=== PATIENT | female | born 1945 | race Caucasian/White ===

== ENCOUNTER 2017-07-28 16:35 | Inpatient (IN) ==
[2017-07-28] MEDS ORDERED: *HR* FentaNYL (PF) 100 MCG/2 ML VIAL IVP ONE (16:51)
[2017-07-28] MEDS ORDERED: 0.9 % Sodium Chloride 1,000 ML IVC ONE (16:51)
[2017-07-28] MEDS ORDERED: Ondansetron 4 MG/2 ML VIAL IVP PRN ×2 (16:51→20:21)
--- NOTE | 2017-07-28 17:18 | Emergency Department Note ---
Disposition Clinical Impression: Bowel obstruction Disposition: Admitted As Inpatient Condition: Serious Referrals: Max Lopez DO [Primary Care Provider] - Time of Disposition: 17:18 Abdominal Pain HPI - General Chief Complaint: ED Abdominal Pain Stated Complaint: Abdominal Pain Source: patient, EMS - History of Present Illness Pain Scale: 9 - Related Data Home Medications Medication Instructions Recorded Confirmed Budesonide/Formoterol 80/4.5 2 puff IH BID 10/18/16 06/20/17 [Symbicort 80/4.5] Ipratropium/Albuterol Neb [Duoneb] 3 ml IH Q6HR PRN 10/18/16 06/20/17 Potassium Chloride [K-Tab ER] 20 meq PO TID 10/18/16 06/20/17 Previous Rx's Medication Instructions Recorded Lidocaine/Prilocaine [Emla] 1 appl TP AD #30 gm 10/19/16 Albuterol Sulfate [Ventolin Hfa] 2 puff IH Q6H PRN #1 01/06/17 Syringe-Needle,Insulin,0.5 ml 1 each MC DAILY #100 disp.syrin 02/17/17 [Insulin Syringe] Handicap Placard 1 each .ROUTE AD #1 each 03/17/17 LORazepam [Ativan] 1 mg PO Q4HR PRN #30 tablet 04/14/17 Omeprazole 20 mg PO DAILY #30 tablet. 06/02/17 Ondansetron [Zofran] 8 mg PO Q8HR PRN #30 tablet 06/02/17 HYDROcodone/Acet 5/325 mg [[place] 1 - 2 tab PO Q6H PRN 30 Days #90 06/20/17 5-325 mg] tab Mirtazapine [Remeron] 15 mg PO HS #30 tablet 07/20/17 Metoclopramide [Reglan] 5 mg PO QIDAC #600 mls 07/25/17 Allergies Allergy/AdvReac Type Severity Reaction Status Date / Time No Known Allergies Allergy Verified 06/20/17 11:43 Abdominal Pain PMH - Past Medical History Medical history: Reports: cancer, COPD, diabetes, hypertension, kidney stones Female Surgical History: Reports: cholecystectomy, Tonsillectomy Psychiatric history: Reports: no psych history - Social History Smoking status: Former smoker Alcohol use: Reports: none Drug use: Reports: none Physical Exam - General Limitations: no limitations General appearance: alert, in no apparent distress Course - Reevaluation(s) Reevaluation #1: Attestation note I did independently examine and verified the physical examination findings evaluation workup and disposition of this patient. We had independent face-to- face examination and discussion. The patient was seen with the emergency medicine resident Dr. Jose Alberto Sanabria I examined this patient and my medical decision-making was reviewed with the Resident Physician/YOU[employer] MINISTER/PA. I agree with the documented findings, disposition and treatment plan as described except to the extent set forth below. Briefly: 72-year-old female history of intra-abdominal tumor with Pelling new metastasis to the long last chemotherapy was in June. Patient's Oncologist Is [facility]. Patient Comes with a Greatly Distended Abdomen Diffuse Tenderness Guarding but No Rebound. Abdominal Pelvic CT Review Prior to Radiologic Interpretation Shows What Appears to Be Markedly Distended stomach with what appears to be food of fecal material in it. We will been overweight for the official radiological reading and then consult surgery and likely admit to the hospitalist service. Providing 30 minutes critical care service for this patient, patient is full code. Disposition pending Time: 17:16 Vital Signs Temperature 97.1 F L 07/28/17 16:38 Pulse Rate 122 07/28/17 16:38 Respiratory Rate 18 07/28/17 16:38 Blood Pressure 124/72 07/28/17 16:38 O2 Sat by Pulse Oximetry 90 07/28/17 16:38 Temperature 97.1 F L 07/28/17 16:38 Pulse Rate 122 07/28/17 16:38 Respiratory Rate 18 07/28/17 16:38 Blood Pressure 124/72 07/28/17 16:38 O2 Sat by Pulse Oximetry 90 07/28/17 16:38 Oxygen Delivery Oxygen Delivery Room Air
--- NOTE | 2017-07-28 17:27 | Emergency Department Note ---
Disposition Clinical Impression: Hx of malignant neoplasm of pancreas, History of malignant neoplasm metastatic to lung Bowel obstruction Qualifiers: Intestinal obstruction type: other intestinal obstruction Intestinal obstruction extent: unspecified extent Qualified Code(s): K56.699 - Other intestinal obstruction unspecified as to partial versus complete obstruction Nausea & vomiting Qualifiers: Vomiting type: unspecified Vomiting Intractability: non-intractable Qualified Code(s): R11.2 - Nausea with vomiting, unspecified Sepsis Qualifiers: Sepsis type: sepsis due to unspecified organism Qualified Code(s): A41.9 - Sepsis, unspecified organism Disposition: Admitted As Inpatient Condition: Serious Time of Disposition: 19:50 Abdominal Pain HPI - General Chief Complaint: ED Abdominal Pain Stated Complaint: Abdominal Pain Source: patient, EMS Nursing Notes Reviewed: Yes Vital Signs Reviewed: Yes - History of Present Illness HPI Narrative: Patient is a 72-year-old female complains of abdominal pain 2 weeks that has gotten acutely worse over the past 3 days. Patient states her pain is currently approximately 10/10 in her left upper quadrant area with associated nausea, vomiting. Patient denies any fevers chills. Patient states there is no radiation to the pain. Patient states she had a bowel movement 1 day ago which was loose, and nonbloody. Patient states bowel movement did not decrease patient's pain symptoms or make it worse. Patient states she is unable to eat without nausea and vomiting. She is unable to take her medications as well. Patient has a history of pancreatic cancer with metastasis to both lungs. Patient follows with Dr. Hook of oncology. Last administration of chemotherapy was the end of June. Pain Scale: 9 - Related Data Home Medications Medication Instructions Recorded Confirmed Budesonide/Formoterol 80/4.5 2 puff IH BID 10/18/16 07/28/17 [Symbicort 80/4.5] Ipratropium/Albuterol Neb [Duoneb] 3 ml IH Q6HR PRN 10/18/16 07/28/17 Potassium Chloride [K-Tab ER] 20 meq PO DAILY 10/18/16 07/28/17 Insulin Glargine,Hum.rec.anlog 35 unit SQ QAM 07/28/17 07/28/17 [Basaglricardo Deepen U-100] Previous Rx's Medication Instructions Recorded Lidocaine/Prilocaine [Emla] 1 appl TP AD #30 gm 10/19/16 Albuterol Sulfate [Ventolin Hfa] 2 puff IH Q6H PRN #1 01/06/17 LORazepam [Ativan] 1 mg PO Q4HR PRN #30 tablet 04/14/17 Omeprazole 20 mg PO DAILY #30 tablet. 06/02/17 Ondansetron [Zofran] 8 mg PO Q8HR PRN #30 tablet 06/02/17 HYDROcodone/Acet 5/325 mg [[place] 1 - 2 tab PO Q6H PRN 30 Days #90 06/20/17 5-325 mg] tab Mirtazapine [Remeron] 15 mg PO HS #30 tablet 07/20/17 Metoclopramide [Reglan] 5 mg PO QIDAC #600 mls 07/25/17 Allergies Allergy/AdvReac Type Severity Reaction Status Date / Time No Known Allergies Allergy Verified 06/20/17 11:43 All systems ED: reviewed and negative except as stated. Review of Systems: As Per HPI Constitutional: Denies: fever, chills ENT ED: Denies: congestion Cardiovascular: Denies: chest pain Respiratory: Reports: dyspnea Abdominal Pain PMH - Past Medical History Medical history: Reports: cancer, COPD, diabetes, hypertension, kidney stones Female Surgical History: Reports: cholecystectomy, Tonsillectomy Psychiatric history: Reports: no psych history - Social History Smoking status: Former smoker Alcohol use: Reports: none Drug use: Reports: none Physical Exam Vital Signs Temperature 97.1 F L 07/28/17 16:38 Pulse Rate 122 07/28/17 16:38 Respiratory Rate 18 07/28/17 16:38 Blood Pressure 124/72 07/28/17 16:38 O2 Sat by Pulse Oximetry 90 07/28/17 16:38 Temperature 97.1 F L 07/28/17 16:38 Pulse Rate 119 07/28/17 19:19 Respiratory Rate 20 07/28/17 19:19 Blood Pressure 96/54 07/28/17 19:19 O2 Sat by Pulse Oximetry 94 07/28/17 19:19 Oxygen Delivery Oxygen Delivery Nasal Cannula CONSTITUTIONAL: Alert and oriented X3, patient is cachectic appearing. Patient is afebrile. Vital signs abnormal for tachycardia at 122. O2 sat 90% and placed on O2 2 L via nasal cannula. Recheck of patient's vitals show no change to pulse rate, blood pressure 96/54. O2 sat 94% on 2 L nasal cannula. HEAD: Normocephalic; atraumatic. EYES: PERRL, no scleral icterus. NOSE: The nose is normal in appearance without rhinorrhea RESP: Normal chest excursion with respiration; breath sounds clear and equal bilaterally; no wheezes, rhonchi, or rales CARD: Regular rhythm, without murmurs, rub or gallop ABD: Abdomen distended with rigidity. Bowel sounds normoactive. Tenderness to palpation left upper quadrant and epigastric. No discoloration, no ecchymosis and flank or periumbilical. SKIN: Normal for age and race; warm and dry; no apparent lesions - General Limitations: no limitations General appearance: alert, in no apparent distress Course - Reevaluation(s) Reevaluation #1: Patient's CT shows small bowel obstruction. NG tube ordered after discussion with patient. Patient understands and agrees to treatment plan for NG tube for bowel decompression. Patient lactic acid is elevated at 2.7. Given patient's elevated white blood cell count, tachycardia, patient is also concerning for sepsis. Cultures have been ordered, Zosyn 3.375 IV ordered. Patient will continue to receive IV fluid. Currently has 1 L running. She will receive a second liter at the completion of the first liter to make 30 mL/ kilogram Time: 18:18 Reevaluation #2: Patient has improvement of symptoms after NG tube placement. Time: 19:40 - Consultations Consultation #1: Dr. Coffey of Gen. surgery was consulted. She recommends NG tube for bowel decompression which is already ordered. She recommends admission to medicine. She states she will see the patient in the morning Time: 18:24 Vital Signs Temperature 97.1 F L 07/28/17 16:38 Pulse Rate 122 07/28/17 16:38 Respiratory Rate 18 07/28/17 16:38 Blood Pressure 124/72 07/28/17 16:38 O2 Sat by Pulse Oximetry 90 07/28/17 16:38 Temperature 97.8 F 07/29/17 04:15 Pulse Rate 88 07/29/17 04:15 Respiratory Rate 16 07/29/17 04:15 Blood Pressure 96/58 07/29/17 04:15 O2 Sat by Pulse Oximetry 94 07/29/17 04:15 Oxygen Delivery Oxygen Delivery Nasal Cannula Abdominal Pain - MDM Narrative Medical decision making narrative: Patient has a distended abdomen with complaints of nausea and vomiting and a history of pancreatic cancer with metastasis to lungs. Patient concern for possible bowel obstruction secondary to metastatic cancer to intestines. Patient had bowel movement times one day ago which was watery and nonbloody. Patient is unable to eat secondary to nausea and vomiting. She is also unable to take her medications. CT abdomen without contrast confirms bowel obstruction of the duodenum. General surgery was consult. Dr. Coffey of Gen. surgery agrees to treatment and plan for bowel decompression with NG tube and admission to medicine. She plans to follow-up with the patient in the morning. Patient started on IV normal saline hydration for elevation of lactic acid which is 2.7 patient has a WBC 17.9 with left shift. Cultures and antibiotics were initiated to cover for intra-abdominal infection in the setting of sepsis. Patient started on Zosyn 3.375 IV. Patient understands and agrees to treatment and plan for admission. Patient was accepted for admission by Dr. Peters the hospitalist. Patient is currently full code. Patient has no standing advanced directives. - Lab Data Lab results reviewed: Yes I reviewed the patient's lab results. Lab results narrative: Short CBC 07/28/17 Range/Units 17:02 WBC 17.9 H (4.3-11.1) K/mcL Hgb 14.6 (11.5-15.4) g/dL Hct 44.5 (35.3-44.9) % Plt Count 254 (140-400) K/mcL Neutrophils # 14.9 H (1.6-8.9) K/mcL BMP 07/28/17 Range/Units 17:12 Sodium 132 L (136-145) mEq/L Potassium 4.0 (3.5-5.1) mEq/L Chloride 89 L (98-107) mEq/L Carbon Dioxide 26 (23-29) mEq/L BUN 37 H (8-23) mg/dL Creatinine 0.78 (0.60-1.20) mg/dL Glucose 155 H (70-105) mg/dL Calcium 10.2 (8.6-10.3) mg/dL Liver Function 07/28/17 Range/Units 17:12 Total Bilirubin 1.0 (0.3-1.0) mg/dL AST 42 H (13-39) Units/L ALT 19 (7-52) Units/L Alkaline Phosphatase 175 H (34-104) Units/L Albumin 3.2 L (3.5-5.7) g/dL Urine 07/28/17 Range/Units 18:01 Urine Color Dark Yellow (Yellow) Urine Clarity Cloudy A (Clear) Urine pH 5.5 (5.0-8.0) pH Units Ur Specific [place] > 1.030 H (1.010-1.025) Urine Protein Trace (Neg-Trace) mg/dL Urine Glucose (UA) Normal (Normal) mg/dL Result diagrams: 07/29/17 05:27 07/29/17 05:27 Lab Results 07/28/17 07/28/17 07/28/17 Range/Units 17:02 17:02 17:12 WBC 17.9 H (4.3-11.1) K/mcL RBC 5.09 H (3.82-4.97) M/mcL Hgb 14.6 (11.5-15.4) g/dL Hct 44.5 (35.3-44.9) % MCV 87.4 (83.0-100.0) fL MCH 28.7 (28.0-33.3) pg MCHC 32.8 (31.6-35.5) g/dL RDW 15.9 H (11.5-14.5) % Plt Count 254 (140-400) K/mcL MPV 11.6 (9.4-12.4) fL Immature Gran % 0.7 (0-4) % Seg Neutrophils % 83.4 % Lymphocytes % 6.0 % Monocytes % 9.6 % Eosinophils % 0.1 % Basophils % 0.2 % Neutrophils # 14.9 H (1.6-8.9) K/mcL Lymphocytes # 1.1 (0.6-4.6) K/mcL Monocytes # 1.7 H (0.0-1.3) K/mcL Eosinophils # 0.0 (0.0-0.6) K/mcL Basophils # 0.0 (0.0-0.2) K/mcL PT (9.4-12.1) Seconds INR APTT (26.0-36.0) Seconds Sodium 132 L (136-145) mEq/L Potassium 4.0 (3.5-5.1) mEq/L Chloride 89 L (98-107) mEq/L Carbon Dioxide 26 (23-29) mEq/L BUN 37 H (8-23) mg/dL Creatinine 0.78 (0.60-1.20) mg/dL Est GFR ( Amer) > 60 (> 60) Est GFR (Non-Af Amer) > 60 (> 60) BUN/Creatinine Ratio 47 H (6-26) Glucose 155 H (70-105) mg/dL Calculated Osmolality 286 (280-300) Lactic Acid 2.7 H (0.5-2.2) mmol/L Calcium 10.2 (8.6-10.3) mg/dL Total Bilirubin 1.0 (0.3-1.0) mg/dL AST 42 H (13-39) Units/L ALT 19 (7-52) Units/L Alkaline Phosphatase 175 H (34-104) Units/L Serum Total Protein 6.9 (6.4-8.9) g/dL Albumin 3.2 L (3.5-5.7) g/dL Globulin 3.7 H (2.4-3.5) g/dL Albumin/Globulin Ratio 0.9 L (1.1-2.2) Lipase 3 L (11-82) Units/L Urine Color (Yellow) Urine Clarity (Clear) Urine pH (5.0-8.0) pH Units Ur Specific [place] (1.010-1.025) Urine Protein (Neg-Trace) mg/dL Urine Glucose (UA) (Normal) mg/dL Urine Ketones (Negative) mg/dL Urine Blood (Negative) Urine Nitrite (Negative) Urine Bilirubin (Negative) Urine Urobilinogen (Normal) mg/dL Ur Leukocyte Esterase (Negative) Urine Microscopic RBC (0-3) per hpf Urine Microscopic WBC (0-3) per hpf Ur Squamous Epith Cells (None-Few) per lpf Urine Bacteria (None-Few) per hpf 07/28/17 07/28/17 Range/Units 17:12 18:01 WBC (4.3-11.1) K/mcL RBC (3.82-4.97) M/mcL Hgb (11.5-15.4) g/dL Hct (35.3-44.9) % MCV (83.0-100.0) fL MCH (28.0-33.3) pg MCHC (31.6-35.5) g/dL RDW (11.5-14.5) % Plt Count (140-400) K/mcL MPV (9.4-12.4) fL Immature Gran % (0-4) % Seg Neutrophils % % Lymphocytes % % Monocytes % % Eosinophils % % Basophils % % Neutrophils # (1.6-8.9) K/mcL Lymphocytes # (0.6-4.6) K/mcL Monocytes # (0.0-1.3) K/mcL Eosinophils # (0.0-0.6) K/mcL Basophils # (0.0-0.2) K/mcL PT 13.5 H (9.4-12.1) Seconds INR 1.2 APTT 29.9 (26.0-36.0) Seconds Sodium (136-145) mEq/L Potassium (3.5-5.1) mEq/L Chloride (98-107) mEq/L Carbon Dioxide (23-29) mEq/L BUN (8-23) mg/dL Creatinine (0.60-1.20) mg/dL Est GFR ( Amer) (> 60) Est GFR (Non-Af Amer) (> 60) BUN/Creatinine Ratio (6-26) Glucose (70-105) mg/dL Calculated Osmolality (280-300) Lactic Acid (0.5-2.2) mmol/L Calcium (8.6-10.3) mg/dL Total Bilirubin (0.3-1.0) mg/dL AST (13-39) Units/L ALT (7-52) Units/L Alkaline Phosphatase (34-104) Units/L Serum Total Protein (6.4-8.9) g/dL Albumin (3.5-5.7) g/dL Globulin (2.4-3.5) g/dL Albumin/Globulin Ratio (1.1-2.2) Lipase (11-82) Units/L Urine Color Dark Yellow (Yellow) Urine Clarity Cloudy A (Clear) Urine pH 5.5 (5.0-8.0) pH Units Ur Specific [place] > 1.030 H (1.010-1.025) Urine Protein Trace (Neg-Trace) mg/dL Urine Glucose (UA) Normal (Normal) mg/dL Urine Ketones Trace H (Negative) mg/dL Urine Blood Negative (Negative) Urine Nitrite Negative (Negative) Urine Bilirubin Large H (Negative) Urine Urobilinogen Normal (Normal) mg/dL Ur Leukocyte Esterase Negative (Negative) Urine Microscopic RBC 5-15 H (0-3) per hpf Urine Microscopic WBC 0-3 (0-3) per hpf Ur Squamous Epith Cells Many H (None-Few) per lpf Urine Bacteria None Seen (None-Few) per hpf - Radiology Data Radiology results reviewed: Yes I reviewed the patient's radiology results. Abdomen/Pelvis CT 07/28/17 16:50 IMPRESSION: 1. Massive distention of the stomach due to gastric obstruction likely at the level of the 2nd segment of the duodenum 2. Cystic lesion adjacent to the gastric antrum appears to communicate with the neck of the gallbladder in may represent tumor or pseudocyst 3. Hepatic metastatic disease 4. Interval enlargement of right lower lobe nodule and juxta cardiac lymph node, compatible with metastases 5. Small left pleural effusion D/ / Nirmal Hughes MD / Nirmal Hughes MD Interpreting Provider: Nirmal Hughes MD Chest X-Ray 07/28/17 16:54 IMPRESSION: No acute cardiopulmonary process. D/ / Shawn Berman MD / Shawn Berman MD Interpreting Provider: Shawn Berman MD
[2017-07-28 17:32] LABS: Basophils % 0.2 %; Eosinophils % 0.1 %; Hematocrit 44.5 % (35.3-44.9); Hemoglobin 14.6 g/dL (11.5-15.4); Immature Granulocytes % 0.7 % (0-4); Lymphocytes # 1.1 K/mcL (0.6-4.6); Mean Corpuscular HGB Conc 32.8 g/dL (31.6-35.5); Mean Corpuscular Hemoglobin 28.7 pg (28.0-33.3); Mean Corpuscular Volume 87.4 fL (83.0-100.0); Mean Platelet Volume 11.6 fL (9.4-12.4); Monocytes # 1.7 K/mcL (0.0-1.3); Monocytes % 9.6 %; Neutrophils # 14.9 K/mcL (1.6-8.9); Platelet Count 254 K/mcL (140-400); Red Blood Count 5.09 M/mcL (3.82-4.97); Red Cell Distribution Width 15.9 % (11.5-14.5); Segmented Neutrophils % 83.4 %
[2017-07-28] MEDS ORDERED: Piperacillin/Tazobactam 3.375 GM in 0.9 % Sodium Chloride Mini Bag 100 ML IVPB ONE (17:50)
[2017-07-28 18:00] LABS: Alanine Aminotransferase 19 Units/L (7-52); Albumin 3.2 g/dL (3.5-5.7); Albumin/Globulin Ratio 0.9 (1.1-2.2); Alkaline Phosphatase 175 Units/L (34-104); Aspartate Amino Transferase 42 Units/L (13-39); BUN/Creatinine Ratio 47 (6-26); Blood Urea Nitrogen 37 mg/dL (8-23); Calcium 10.2 mg/dL (8.6-10.3); Carbon Dioxide 26 mEq/L (23-29); Chloride 89 mEq/L (98-107); Globulin 3.7 g/dL (2.4-3.5); Glucose 155 mg/dL (70-105); Lipase 3 Units/L (11-82); Osmolality,Calculated 286 (280-300); Sodium 132 mEq/L (136-145); Total Protein 6.9 g/dL (6.4-8.9); eGFR For African Americans > 60 (> 60); eGFR For Non-African Americans > 60 (> 60)
[2017-07-28 18:11] LABS: Bilirubin,Urine Large (Negative); Blood,Urine Negative (Negative); Clarity,Urine Cloudy (Clear); Color,Urine Dark Yellow (Yellow); Glucose,Urine (UA) Normal (Normal); Ketones,Urine Trace mg/dL (Negative); Leukocyte Esterase,Urine Negative (Negative); Nitrite,Urine Negative (Negative); PH,Urine 5.5 pH Units (5.0-8.0); Protein,Urine Trace mg/dL (Neg-Trace); Specific Gravity,Urine > 1.030 (1.010-1.025); Urobilinogen,Urine Normal (Normal)
[2017-07-28 18:12] LABS: Bacteria,Urine None Seen per hpf (None-Few); Squamous Epithelial Cell,Urine Many per lpf (None-Few); WBC,Urine 0-3 per hpf (0-3)
[2017-07-28 18:24] LABS: INR 1.2; Prothrombin Time 13.5 Seconds (9.4-12.1)
[2017-07-28 18:26] LABS: Activated Partial Thrombo Time 29.9 Seconds (26.0-36.0)
[2017-07-28] MEDS ORDERED: *HR* Metoprolol 5 MG/5 ML VIAL IVP PRN (20:21)
[2017-07-28] MEDS ORDERED: OXYCODONE Oral CONC 10 MG/0.5 ML ORAL.SYG SL PRN ×2 (20:21)
[2017-07-28] MEDS ORDERED: Naloxone 0.4 MG/ML INJ IVP PRN (20:21)
[2017-07-28] MEDS ORDERED: 0.9 % Sodium Chloride 1,000 ML IVC SCH ×3 (20:30→23:00)
[2017-07-28] MEDS ORDERED: Metoclopramide 10 MG/2 ML VIAL IVP PRN (20:31)
--- NOTE | 2017-07-28 20:40 | Internal Med History&Physical ---
<Wilner Li - Last Filed: 07/29/17 03:58> Date of Encounter: 07/29/17 Time of Encounter: 19:30 Assessment and Plan (1) Bowel obstruction Status: Acute CT shows: Massive distention of the stomach due to gastric obstruction likely at the level of the 2nd segment of the duodenum. Cystic lesion adjacent to the gastric antrum appears to communicate with the neck of the gallbladder in may represent tumor or pseudocyst. Hepatic metastatic disease. Interval enlargement of right lower lobe nodule and juxta cardiac lymph node, compatible with metastases. Patient is tachycardic. Afebrile. Leukocytosis of 17.9. Lactic acid 2.7. No anemia. BMP is consistent with dehydration. Mild elevation in AST and alkaline phosphatase. Lipase is normal. The ED physician did call and discuss the patient with the surgical team, who will evaluate the patient in the morning. However, due to the patient's history and poor health status I expect she will be treated symptomatically and medically, as she would be a poor surgical candidate. Continue NG tube suction, NPO, PRN nausea control, pain control, IV fluids (LR as she is currently NPO) and antibiotics Qualifiers: Intestinal obstruction type: other intestinal obstruction Intestinal obstruction extent: unspecified extent Qualified Code(s): K56.699 - Other intestinal obstruction unspecified as to partial versus complete obstruction (2) Stage IV adenocarcinoma of pancreas Status: Acute There is confirmed metastasis by biopsy to the lungs. Last oncology note on mentions that chemotherapy has been stopped secondary to disease stability and toxicity. She reports that they were going to take a couple months off and then reevaluate. I did have a lengthy discussion with both the patient and her about the extent of her cancer. We discussed the difference in quality versus quantity of life. Both patient and her are aware of how severe her disease is. The patient did express that she would prefer quality of life over prolongation of life. They are willing to have a discussion with oncology and palliative care, about their options going forward and what services would be available to them. I also had a lengthy conversation with them about CODE STATUS, and the patient reports that she would prefer to be DNR CCA DNI. (3) Altered nutrition in oncology patient Status: Acute Patient has not been eating or drinking well over the past 2 weeks due to bowel obstruction. She appears very cachectic. She will need planning for nutritional needs going forward, whether that be a feeding tube or some sort of nutritional supplementation. We will consult dietary to assist in this planning process. (4) Diabetes mellitus Status: Acute Patient is on U-100 insulin, dosed in the morning. With patient currently being NPO, we will hold her home insulin dose and place her on a sliding scale insulin. Qualifiers: Diabetes mellitus type: type 2 Diabetes mellitus alf insulin use: with alf use Diabetes mellitus complication status: with unspecified complications Qualified Code(s): E11.8 - Type 2 diabetes mellitus with unspecified complications; Z79.4 - nursing home (current) use of insulin; Z79.4 - nursing home (current) use of insulin; Z79.4 - termite control service representative (current) use of insulin; Z79.4 - termite control service representative (current) use of insulin (5) Hypertension Status: Acute Normotensive. Patient is tachycardic. Patient is currently nothing by mouth, so we will place her on Lopressor PRN. Qualifiers: Hypertension type: essential hypertension Qualified Code(s): I10 - Essential (primary) hypertension (6) COPD (chronic obstructive pulmonary disease) Status: Acute Hx of COPD, not in acute exacerbation. Patient reports that her breathing is about at baseline. We will continue home inhalers and respiratory support. Qualifiers: COPD type: unspecified COPD Qualified Code(s): J44.9 - Chronic obstructive pulmonary disease, unspecified (7) DVT prophylaxis Status: Acute SCDs for now Internal Medicine - H&P: HPI Chief complaint: Abdominal Pain Admitted From: Emergency Dept History of present illness: Ms. Rogers is a 72 year old female with PMH of pancreatic cancer with metastasis to lungs, COPD, diabetes, hypertension, presents to emergency department with a two-week history of severe non-radiating left upper quadrant abdominal pain. She reports that over the past 3 days her pain has worsened. Associated symptoms include nausea, vomiting, poor appetite/intake, and distention of her abdomen. However, she reports now her abdomen is much less distended after NG tube placement. She does report that she has been more constipated during this time period, but has had a few bowel movements, with the most recent being yesterday that was loose. Her pain is not relieved after a bowel movement. Nothing seems to aggravate or alleviate the pain. She denies fevers, chills, syncope, lightheadedness, hematemesis, hematochezia, melena, dysuria or hematuria. She states this has never happened to her past. She denies chest pain, dyspnea, back pain, or leg pain/swelling. She reports she follows with oncology, Dr. Hook, and her last chemotherapy treatment was in June. At that time it was discussed to give her a few months off of treatment, and then reevaluate. Discussed CODE STATUS with the patient and she is a DNR CCA DNI. Past Med Surg Social Fam HX - Past Medical History Medical history: cancer, COPD, diabetes, hypertension, kidney stones Psychiatric history: no psych history - Past Surgical History Surgical History: cholecystectomy - Social History Smoking Status: Former smoker Smokeless Tobacco Status: No Alcohol use: none Drug use: none - Family History Mother Living Status: Hx Family Cardiac Disorders: Yes Internal Medicine - H&P: Meds Budesonide/Formoterol 80/4.5 [Symbicort 80/4.5] 2 puff IH BID 10/18/16 [History ] Ipratropium/Albuterol Neb [Duoneb] 3 ml IH Q6HR PRN 10/18/16 [History] Potassium Chloride [K-Tab ER] 20 meq PO DAILY 10/18/16 [History] Lidocaine/Prilocaine [Emla] 1 appl TP AD #30 gm 10/19/16 [Rx] Albuterol Sulfate [Ventolin Hfa] 2 puff IH Q6H PRN #1 01/06/17 [Rx] LORazepam [Ativan] 1 mg PO Q4HR PRN #30 tablet 04/14/17 [Rx] Omeprazole 20 mg PO DAILY #30 tablet. 06/02/17 [Rx] Ondansetron [Zofran] 8 mg PO Q8HR PRN #30 tablet 06/02/17 [Rx] HYDROcodone/Acet 5/325 mg [[place] 5-325 mg] 1 - 2 tab PO Q6H PRN 30 Days #90 tab 06/20/17 [Rx] Mirtazapine [Remeron] 15 mg PO HS #30 tablet 07/20/17 [Rx] Metoclopramide [Reglan] 5 mg PO QIDAC #600 mls 07/25/17 [Rx] Insulin Glargine,Hum.rec.anlog [Gabi Pena U-100] 35 unit SQ QAM 07/28/17 [History] 3 Allergy/AdvReac Type Severity Reaction Status Date / Time No Known Allergies Allergy Verified 06/20/17 11:43 All Systems PM: A 10-system review of systems was performed and is negative for pertinent findings except as documented above in the HPI. - Constitutional Vitals: Temp Pulse Resp BP Pulse Ox 97.1 F L 119 20 96/54 94 07/28/17 16:38 07/28/17 19:19 07/28/17 19:19 07/28/17 19:19 07/28/17 19:19 General appearance: Present: cachectic, A&O X 3, no acute distress, answers questions appropriately - Head Head exam: Present: atraumatic, normocephalic - Eye Eye exam: Present: EOMI, PERRL, conjuntiva pink, sclera anicteric - Neck Neck exam general surgery: Present: supple, trachea midline. Absent: lymphadenopathy - Respiratory Respiratory exam: Present: CTAB. Absent: accessory muscle use, rales, rhonchi, wheezes - Cardiovascular Cardiovascular exam: Present: +S1, +S2, tachycardia. Absent: diastolic murmur, systolic murmur - GI/Abdominal GI/Abdominal exam: Present: normal bowel sounds, soft, tenderness (upper abdominal tenderness), no peritoneal signs. Absent: distended, guarding, rebound, rigid Additional comments: Abdominal exam is completed after NG tube placement, and significant amount of fluid removal. ED physician reported a distended rigidity. - Extremities Exam Extremities exam: Present: warm, radial pulses palpable and symmetrical. Absent : calf tenderness, cyanotic, pedal edema - Neurological Exam Neurological exam: Present: CN II-XII intact, oriented X3, no focal deficits. Absent: facial droop, speech deficit - Skin Skin exam: Present: dry, intact Internal Med - H&P Results - Labs CBC & Chem 7: 07/28/17 17:02 07/28/17 17:12 <Halle Reynolds - Last Filed: 08/18/17 10:19> Date of Encounter: 08/18/17 Internal Medicine - H&P: HPI History of present illness: Ms. Rogers is a 72 year old female All Systems PM: A 10-system review of systems was performed and is negative for pertinent findings except as documented above in the HPI. - Constitutional Vitals: Temp Pulse Resp BP Pulse Ox 98.3 F 101 9 80/48 86 08/03/17 07:33 08/03/17 07:33 08/03/17 07:33 08/03/17 07:33 08/03/17 07:33 Internal Med - H&P Results - Labs CBC & Chem 7: 08/02/17 03:14 08/02/17 03:14 - Impressions ITS Impressions Abdomen/Pelvis CT 07/30/17 16:14 IMPRESSION: 1. Large amount of free intraperitoneal air which may be related to recent gastrostomy tube placement; however, this is more than is typically seen. Although there is no convincing source, there is a pocket of extraluminal gas in the abdominal right upper quadrant, near the colonic hepatic flexure. As such, this may represent source of the free intraperitoneal air. 2. Circumferential thickening of the colon suggestive of colitis. 3. Marked distention of the stomach with focal thickening of the posterior gastric wall at the level of the antrum of unclear etiology, possibly a hematoma. 4. Moderate amount of free fluid in the pelvis. 5. Sigmoid diverticulosis. No evidence of diverticulitis. 6. Left hepatic lobe pneumobilia with mild left intrahepatic ductal dilatation. Of note, the biliary stent has slightly migrated distally. 7. Persistent peripheral wall 2.3 cm nodule in the right lower lobe, previously biopsied. Please refer to pathology report. 8. Left lower lobe consolidation with small left pleural effusion. D/ / 07/30/2017 17:44:31 Collin Barcenas MD / vinod Interpreting Provider: Collin Barcenas MD Head CT 07/31/17 00:00 IMPRESSION: No acute intracranial abnormality. No acute cervical spine fracture No acute thoracic spine fracture Left greater than right pleural effusions and left greater than right basilar airspace disease. D/ / Alpesh Ariza / Alpesh Ariza Interpreting Provider: Alpesh Ariza Cervical Spine CT 07/31/17 00:30 IMPRESSION: No acute intracranial abnormality. No acute cervical spine fracture No acute thoracic spine fracture Left greater than right pleural effusions and left greater than right basilar airspace disease. D/ / Alpesh Ariza / Alpesh Ariza Interpreting Provider: Alpesh Ariza Thoracic Spine CT 07/31/17 00:31 IMPRESSION: No acute intracranial abnormality. No acute cervical spine fracture No acute thoracic spine fracture Left greater than right pleural effusions and left greater than right basilar airspace disease. D/ / Alpesh Ariza / Alpesh Ariza Interpreting Provider: Alpesh Ariza Knee X-Ray 07/31/17 00:35 IMPRESSION: No fracture or malalignment. D/ / Armando Wray MD / Armando Wray MD Interpreting Provider: Armando Wray MD Elbow X-Ray 07/31/17 00:37 IMPRESSION: No fracture or malalignment. D/ / Armando Wray MD / Armando Wray MD Interpreting Provider: Armando Wray MD X-Ray 07/31/17 01:00 IMPRESSION: Indeterminate bowel-gas pattern. D/ / Armando Wray MD / Armando Wray MD Interpreting Provider: Armando Wray MD - Attending Attestation I personally and independently interviewed and examined the patient, and I reviewed the patient's medical record. I am in agreement with the residents assessment and proposed treatment plan. I discussed my findings and recommendation with the patient and answer his questions. The patient's medical records were edited to accurately reflect this encounter.
[2017-07-28] MEDS ORDERED: Dextrose Gel 15 GM/37.5 ML TUBE PO PRN ×2 (21:02)
[2017-07-28] MEDS ORDERED: *HR* Dextrose 50 % in Water (Syg) 50 ML SYRINGE IVP PRN (21:02)
[2017-07-28] MEDS ORDERED: D5% in Water 1,000 ML IVC PRN (21:02)
[2017-07-28] MEDS: Budesonide/Formoterol 80/4.5 MDI IH SCH (22:53)
[2017-07-29] MEDS: *HR* LORazepam 2 MG/ML VIAL IVP SCH ×4 (00:01→12:32)
[2017-07-29 05:49] LABS: Basophils % 0.2 %; Eosinophils % 0.3 %; Hematocrit 36.3 % (35.3-44.9); Immature Granulocytes % 0.4 % (0-4); Lymphocytes # 1.2 K/mcL (0.6-4.6); Lymphocytes % 10.4 %; Mean Corpuscular HGB Conc 32.5 g/dL (31.6-35.5); Mean Corpuscular Hemoglobin 28.4 pg (28.0-33.3); Mean Corpuscular Volume 87.3 fL (83.0-100.0); Mean Platelet Volume 11.5 fL (9.4-12.4); Monocytes # 1.2 K/mcL (0.0-1.3); Monocytes % 10.6 %; Neutrophils # 8.9 K/mcL (1.6-8.9); Platelet Count 172 K/mcL (140-400); Red Blood Count 4.16 M/mcL (3.82-4.97); Red Cell Distribution Width 15.9 % (11.5-14.5); Segmented Neutrophils % 78.1 %
[2017-07-29 05:51] LABS: Hemoglobin 11.8 g/dL (11.5-15.4); INR 1.3; Prothrombin Time 13.6 Seconds (9.4-12.1)
[2017-07-29 07:01] LABS: BUN/Creatinine Ratio 43 (6-26); Blood Urea Nitrogen 31 mg/dL (8-23); Calcium 8.9 mg/dL (8.6-10.3); Carbon Dioxide 27 mEq/L (23-29); Chloride 99 mEq/L (98-107); Glucose 113 mg/dL (70-105); Osmolality,Calculated 295 (280-300); Potassium 3.7 mEq/L (3.5-5.1); Sodium 139 mEq/L (136-145); eGFR For African Americans > 60 (> 60); eGFR For Non-African Americans > 60 (> 60)
[2017-07-29] MEDS: Budesonide/Formoterol 80/4.5 MDI IH SCH ×2 (07:57→19:59)
[2017-07-29] MEDS: Ipratropium/Albuterol Neb 3 ML IH PRN (07:58)
[2017-07-29] MEDS: Insulin LISPRO 300 UNITS/3 ML VIAL SQ SCH ×4 (08:30→21:59)
[2017-07-29] MEDS: Pantoprazole 40 MG VIAL IVP SCH (08:36)
[2017-07-29] MEDS: Ringers Solution, Lactated 1,000 ML IVC SCH ×2 (08:39→22:16)
--- NOTE | 2017-07-29 09:47 | General Surgery Consult Note ---
<Chad Rodas - Last Filed: 07/29/17 09:36> Date of Encounter: 07/29/17 Time of Encounter: 08:00 Assessment and Plan (1) Gastric outlet obstruction Status: Acute CT of the abdomen on 07/28/2017 shows Massive distention of the stomach due to gastric obstruction likely at the level of the 2nd segment of the duodenum, Hepatic metastatic disease, amd Interval enlargement of right lower lobe nodule and juxta cardiac lymph node, compatible with metastases. Patient is a poor surgical candidate. Patient is afebrile and appears in no acute distress at this time. NG tube is in place. Plan: Continue the NG tube at this time Consider PEG tube placement for decompression No other surgical intervention at this time Keep NPO supportive care and pain control. Continue IV fluids continue to monitor the patient closely Recommends DVT prophylaxis per primary team (2) Stage IV adenocarcinoma of pancreas Status: Acute Dr. Hook is her oncologist. Oncology and palliative consulted per primary team. Plan per primary team (3) COPD (chronic obstructive pulmonary disease) Status: Acute History of COPD. Currently is not in acute exacerbation of COPD. Continue plan per primary team. 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 Rogers is a 72 year old female with PMH of pancreatic cancer with metastasis to lungs, COPD, diabetes, and hypertension who presented to emergency department yesterday with a two-week history of severe non-radiating left upper quadrant abdominal pain. She reports that over the past 3 days her pain has worsened. Associated symptoms include nausea, vomiting, poor appetite and intake, and distention of her abdomen. Evaluation in the ED included a CT of the abdomen that showed massive distention of the stomach due to gastric obstruction likely at the level of the 2nd segment of the duodenum, Hepatic metastatic disease, and interval enlargement of right lower lobe nodule and juxta cardiac lymph node, compatible with metastases. Chest x-ray showed no acute cardiopulmonary processes. Labs show leukocytosis and elevated lactic acid at 2.7. NG tube was placed for bowel decompression in the ED. Surgery was consulted for further recommendations. The patient was seen and evaluated at bedside this morning. The patient's is at bedside. The patient states that she feels better compared to yesterday. She is denying any abdominal pain at this time. She states that " if I don't need surgery, then I don't want it." The patient states that her last bowel movement was last night and described it as loose and non-bloody. She admits passing gas. Surgical history includes cholecystectomy approximately 50 years ago. She also had a right port placement in 2015. She denies fevers, chills, syncope, lightheadedness, hematemesis, hematochezia, melena, dysuria or hematuria. She states this has never happened to her past. She denies chest pain, dyspnea, back pain, or leg pain/swelling. She reports she follows with oncology, Dr. Hook, and her last chemotherapy treatment was in June. Past Med Surg Social Fam HX - Past Medical History Medical history: cancer, COPD, diabetes, hypertension, kidney stones Psychiatric history: no psych history - Past Surgical History Surgical History: cholecystectomy - Social History Smoking Status: Former smoker Smokeless Tobacco Status: No Alcohol use: none Drug use: none - Family History Mother Living Status: Hx Family Cardiac Disorders: Yes Medications and Allergies Budesonide/Formoterol 80/4.5 [Symbicort 80/4.5] 2 puff IH BID 10/18/16 [History ] Ipratropium/Albuterol Neb [Duoneb] 3 ml IH Q6HR PRN 10/18/16 [History] Potassium Chloride [K-Tab ER] 20 meq PO DAILY 10/18/16 [History] Lidocaine/Prilocaine [Emla] 1 appl TP AD #30 gm 10/19/16 [Rx] Albuterol Sulfate [Ventolin Hfa] 2 puff IH Q6H PRN #1 01/06/17 [Rx] LORazepam [Ativan] 1 mg PO Q4HR PRN #30 tablet 04/14/17 [Rx] Omeprazole 20 mg PO DAILY #30 tablet. 06/02/17 [Rx] Ondansetron [Zofran] 8 mg PO Q8HR PRN #30 tablet 06/02/17 [Rx] HYDROcodone/Acet 5/325 mg [[place] 5-325 mg] 1 - 2 tab PO Q6H PRN 30 Days #90 tab 06/20/17 [Rx] Mirtazapine [Remeron] 15 mg PO HS #30 tablet 07/20/17 [Rx] Metoclopramide [Reglan] 5 mg PO QIDAC #600 mls 07/25/17 [Rx] Insulin Glargine,Hum.rec.anlog [Basaglar Kwikpen U-100] 35 unit SQ QAM 07/28/17 [History] 3 Allergy/AdvReac Type Severity Reaction Status Date / Time No Known Allergies Allergy Verified 06/20/17 11:43 Review of Systems All systems PM: The remainder of the systems were reviewed and are negative - Constitutional as per HPI General Surgery Exam Initial Vital Signs Temp Pulse Resp BP Pulse Ox 97.1 F L 122 18 124/72 90 07/28/17 16:38 07/28/17 16:38 07/28/17 16:38 07/28/17 16:38 07/28/17 16:38 - General physical appearance no distress, chronically ill - Eyes PERRL, normal ocular movement - ENT dry mucosa, Other (NG tube in placed. 250 mL of drainage) - Neck trachea midline - Respiratory normal respiratory effort, other (Port on the right side of her chest is present and intact) wheezing: bilateral (Expiratory wheezes bilaterally), rales: bilateral - Cardiovascular Cardiovascular exam: Present: RRR, no murmurs/rubs/gallops - Abdomen Abdomen general surgery: Present: bowel sounds present, soft, non tender. Absent: distended, guarding, rebound, rigid - Integumentary Integumentary general surgery: Present: warm and dry, no abnormal pigmentation - Neurologic Present: CN 2-12 grossly intact - Psychiatric Psychiatric general surgery: Present: A&Ox3, appropriate Exam Initial Vital Signs Temp Pulse Resp BP Pulse Ox 97.1 F L 122 18 124/72 90 07/28/17 16:38 07/28/17 16:38 07/28/17 16:38 07/28/17 16:38 07/28/17 16:38 Results - Labs 07/29/17 05:27 07/29/17 05:27 Abnormal lab results WBC 11.4 K/mcL (4.3-11.1) H 07/29/17 05:27 RDW 15.9 % (11.5-14.5) H 07/29/17 05:27 PT 13.6 Seconds (9.4-12.1) H 07/29/17 05:27 BUN 31 mg/dL (8-23) H 07/29/17 05:27 BUN/Creatinine Ratio 43 (6-26) H 07/29/17 05:27 Glucose 113 mg/dL (70-105) H 07/29/17 05:27 POC Glucose 99 mg/dL (58-89) H 07/29/17 07:38 AST 42 Units/L (13-39) H 07/28/17 17:12 Alkaline Phosphatase 175 Units/L (34-104) H 07/28/17 17:12 Albumin 3.2 g/dL (3.5-5.7) L 07/28/17 17:12 Globulin 3.7 g/dL (2.4-3.5) H 07/28/17 17:12 Albumin/Globulin Ratio 0.9 (1.1-2.2) L 07/28/17 17:12 Lipase 3 Units/L (11-82) L 07/28/17 17:12 Urine Clarity Cloudy (Clear) A 07/28/17 18:01 Ur Specific [place] > 1.030 (1.010-1.025) H 07/28/17 18:01 Urine Ketones Trace mg/dL (Negative) H 07/28/17 18:01 Urine Bilirubin Large (Negative) H 07/28/17 18:01 Urine Microscopic RBC 5-15 per hpf (0-3) H 07/28/17 18:01 Ur Squamous Epith Cells Many per lpf (None-Few) H 07/28/17 18:01 Diabetes panel 07/29/17 Range/Units 05:27 Sodium 139 (136-145) mEq/L Potassium 3.7 (3.5-5.1) mEq/L Chloride 99 (98-107) mEq/L Carbon Dioxide 27 (23-29) mEq/L BUN 31 H (8-23) mg/dL Creatinine 0.72 (0.60-1.20) mg/dL Glucose 113 H (70-105) mg/dL Calcium 8.9 (8.6-10.3) mg/dL Calcium panel 07/29/17 Range/Units 05:27 Calcium 8.9 (8.6-10.3) mg/dL Pituitary panel 07/29/17 Range/Units 05:27 Sodium 139 (136-145) mEq/L Potassium 3.7 (3.5-5.1) mEq/L Chloride 99 (98-107) mEq/L Carbon Dioxide 27 (23-29) mEq/L BUN 31 H (8-23) mg/dL Creatinine 0.72 (0.60-1.20) mg/dL Glucose 113 H (70-105) mg/dL Calcium 8.9 (8.6-10.3) mg/dL Adrenal panel 07/29/17 Range/Units 05:27 Sodium 139 (136-145) mEq/L Potassium 3.7 (3.5-5.1) mEq/L Chloride 99 (98-107) mEq/L Carbon Dioxide 27 (23-29) mEq/L BUN 31 H (8-23) mg/dL Creatinine 0.72 (0.60-1.20) mg/dL Glucose 113 H (70-105) mg/dL Calcium 8.9 (8.6-10.3) mg/dL All other labs normal. Consult Discharge Plan - Plan Additional Instructions: Wound care orders: Turn stop cock towards the capped pressure valves (This will allow drainage into the MARY drain), every 6 hours. Change dressing Q7 days. PEG: Keep PEG to gravity. May return to [facility] for nausea or vomiting. Change PEG dressing daily. No need for surgical follow-up. Referrals: Max Lopez DO [Primary Care Provider] - <Lachelle Coffey - Last Filed: 08/08/17 07:37> Date of Encounter: 07/29/17 Assessment and Plan (1) Gastric outlet obstruction Status: Acute (2) Stage IV adenocarcinoma of pancreas Status: Chronic (3) Gastric outlet obstruction Status: Acute discussed CT results with patient and her family. Only two options are available to relieve obstruction - decompressive palliative peg or gastojejunostomy. Given patients physical condition and metastatic pancreatic cancer my opinion is she only undergo the decompressive peg. They are going to think about it. Have discussed patient case with Dr Chapman who will assume care of patient in my absence. Discussed with patient and family I believe a gastrojejunostomy would hasten patients as she is too deconditioned to undergo surgery. They expressed understanding History of Present Illness History of present illness: Patient with metastatic pancreatic cancer causing GOO. Patient has not been able to slowly eat for the last 2 weeks with increasing abdominal pain and distention. She has been having nausea and emesis. She has had ngt placed with resolution of symptoms currently. CT shows massively dilated stomach with obstruction at 2nd portion of duodenum. Past Med Surg Social Fam HX - Past Medical History Source: patient Medical history: cancer (pancreatic - metastatic) Review of Systems All systems PM: reviewed and no additional remarkable complaints except as stated All systems PM: The remainder of the systems were reviewed and are negative General Surgery Exam Initial Vital Signs Temp Pulse Resp BP Pulse Ox 97.1 F L 122 18 124/72 90 07/28/17 16:38 07/28/17 16:38 07/28/17 16:38 07/28/17 16:38 07/28/17 16:38 - General physical appearance no distress, cachectic, chronically ill - Eyes PERRL, normal ocular movement - ENT normal mucosa, dry mucosa - Neck trachea midline - Respiratory normal expansion wheezing: bilateral - Cardiovascular Cardiovascular exam: Present: RRR - Abdomen Abdomen general surgery: Present: bowel sounds present, soft, non tender. Absent: distended, guarding, rebound - Integumentary Integumentary general surgery: Present: warm and dry, no abnormal pigmentation - Neurologic Present: CN 2-12 grossly intact - Musculoskeletal Present: other (resting in bed, generalized weakness and severe deconditioning) - Psychiatric Psychiatric general surgery: Present: A&Ox3 Exam Initial Vital Signs Temp Pulse Resp BP Pulse Ox 97.1 F L 122 18 124/72 90 07/28/17 16:38 07/28/17 16:38 07/28/17 16:38 07/28/17 16:38 07/28/17 16:38 Results - Labs 08/02/17 03:14 08/02/17 03:14 Abnormal lab results WBC 18.4 K/mcL (4.3-11.1) H 08/02/17 03:14 RBC 3.55 M/mcL (3.82-4.97) L 08/02/17 03:14 Hgb 10.4 g/dL (11.5-15.4) L 08/02/17 03:14 Hct 32.6 % (35.3-44.9) L 08/02/17 03:14 RDW 16.7 % (11.5-14.5) H 08/02/17 03:14 Plt Count 90 K/mcL (140-400) L 08/02/17 03:14 Neutrophils # 16.1 K/mcL (1.6-8.9) H 08/02/17 03:14 Nucleated RBCs/100 WBC 0.1 /100 WBC (0) H 08/02/17 03:14 Immature Plt Fraction 8.6 % (1.1-6.1) H 08/02/17 03:14 PT 13.6 Seconds (9.4-12.1) H 07/29/17 05:27 Potassium 3.3 mEq/L (3.5-5.1) L 08/02/17 03:14 BUN 33 mg/dL (8-23) H 08/02/17 03:14 Creatinine 1.68 mg/dL (0.60-1.20) H 08/02/17 03:14 Est GFR ( Amer) 37 (> 60) L 08/02/17 03:14 Est GFR (Non-Af Amer) 30 (> 60) L 08/02/17 03:14 Glucose 170 mg/dL (70-105) H 08/02/17 03:14 POC Glucose 149 mg/dL (70-99) H 08/03/17 07:37 Calculated Osmolality 301 (280-300) H 08/02/17 03:14 AST 42 Units/L (13-39) H 07/28/17 17:12 Alkaline Phosphatase 175 Units/L (34-104) H 07/28/17 17:12 Albumin 3.2 g/dL (3.5-5.7) L 07/28/17 17:12 Globulin 3.7 g/dL (2.4-3.5) H 07/28/17 17:12 Albumin/Globulin Ratio 0.9 (1.1-2.2) L 07/28/17 17:12 Lipase 3 Units/L (11-82) L 07/28/17 17:12 Procalcitonin 0.54 ng/mL (<=0.10) H 08/01/17 03:26 Urine Clarity Cloudy (Clear) A 07/28/17 18:01 Ur Specific [place] > 1.030 (1.010-1.025) H 07/28/17 18:01 Urine Ketones Trace mg/dL (Negative) H 07/28/17 18:01 Urine Bilirubin Large (Negative) H 07/28/17 18:01 Urine Microscopic RBC 5-15 per hpf (0-3) H 07/28/17 18:01 Ur Squamous Epith Cells Many per lpf (None-Few) H 07/28/17 18:01 Mycoplasma pneumon IgG 0.12 U/L (<=0.09) H 07/31/17 20:50 All other labs normal. - Imaging CT scan - abdomen: report reviewed, image reviewed CT scan - pelvis: report reviewed, image reviewed - Attending Attestation I examined this patient and my medical decision-making was reviewed with the Resident Physician. I agree with the documented findings, disposition and treatment plan as described except to the extent set forth below.
--- NOTE | 2017-07-29 09:57 | Palliative - Consult Note ---
<Kayleigh Whitman - Last Filed: 07/29/17 10:05> Date of Encounter: 07/29/17 Time of Encounter: 09:52 - Assessment and Plan (1) Goals of care, counseling/discussion Current Visit: Yes Status: Acute Assessment and plan: At this time, patient states that she would like to spend as much time at home with her family as possible. She would like her to be her power of traffic law attorney, and is okay with getting that set up during this hospitalization. She is interested in hospital services at this time. She would like more information specifically on [facility] hospice since she has a family member that works there. Plan: will get POA paperwork done, will have hospice outside sales representative insurance come out and evaluate the patient and answer questions (2) Bowel obstruction Current Visit: Yes Status: Acute Assessment and plan: Management per surgery and primary team. Qualifiers: Intestinal obstruction type: other intestinal obstruction Intestinal obstruction extent: unspecified extent Qualified Code(s): K56.699 - Other intestinal obstruction unspecified as to partial versus complete obstruction (3) Adenocarcinoma of pancreas Current Visit: No Status: Acute Assessment and plan: Sees Dr. Hook outpatient. (4) Hypertension Current Visit: Yes Status: Acute Qualifiers: Hypertension type: essential hypertension Qualified Code(s): I10 - Essential (primary) hypertension (5) COPD (chronic obstructive pulmonary disease) Current Visit: Yes Status: Acute Qualifiers: COPD type: unspecified COPD Qualified Code(s): J44.9 - Chronic obstructive pulmonary disease, unspecified Palliative-CN HPI - Data of Consult Patient: new to practice Consult date: 07/29/17 Requesting Physician: Jeannette Espinoza MD Primary Care Provider: Max Lopez - Consult Narrative Palliative Care/Comfort Measures: Hospice care Reason for consult: Establish POA, discuss hospice History of present illness: Ms. Rogers is a 72 year old female with past medical history of pancreatic cancer with metastasis to the lungs, COPD, diabetes, hypertension. She presented to the emergency department yesterday with 2 week history of left upper quadrant abdominal pain. She reported having symptoms of nausea, vomiting , poor intake. CT of the abdomen and pelvis showed massive distention of the stomach due to gastric obstruction at the level of the duodenum. Patient reports nausea without vomiting. Denies diarrhea, fever, chills, chest pain. Surgery has been consult it. Palliative care was consult it to discuss options for hospice and goals of care. CC: Jeannette Espinoza MD Past Med Surg Social Fam HX - Past Medical History Medical history: cancer, COPD, diabetes, hypertension, kidney stones Psychiatric history: no psych history - Past Surgical History Surgical History: cholecystectomy - Social History Smoking Status: Former smoker Smokeless Tobacco Status: No Alcohol use: none Drug use: none - Family History Mother Living Status: Hx Family Cardiac Disorders: Yes Medications and Allergies Budesonide/Formoterol 80/4.5 [Symbicort 80/4.5] 2 puff IH BID 10/18/16 [History ] Ipratropium/Albuterol Neb [Duoneb] 3 ml IH Q6HR PRN 10/18/16 [History] Potassium Chloride [K-Tab ER] 20 meq PO DAILY 10/18/16 [History] Lidocaine/Prilocaine [Emla] 1 appl TP AD #30 gm 10/19/16 [Rx] Albuterol Sulfate [Ventolin Hfa] 2 puff IH Q6H PRN #1 01/06/17 [Rx] LORazepam [Ativan] 1 mg PO Q4HR PRN #30 tablet 04/14/17 [Rx] Omeprazole 20 mg PO DAILY #30 tablet. 06/02/17 [Rx] Ondansetron [Zofran] 8 mg PO Q8HR PRN #30 tablet 06/02/17 [Rx] HYDROcodone/Acet 5/325 mg [[place] 5-325 mg] 1 - 2 tab PO Q6H PRN 30 Days #90 tab 06/20/17 [Rx] Mirtazapine [Remeron] 15 mg PO HS #30 tablet 07/20/17 [Rx] Metoclopramide [Reglan] 5 mg PO QIDAC #600 mls 07/25/17 [Rx] Insulin Glargine,Hum.rec.anlog [Basaglar Kwikpen U-100] 35 unit SQ QAM 07/28/17 [History] 3 Allergy/AdvReac Type Severity Reaction Status Date / Time No Known Allergies Allergy Verified 06/20/17 11:43 All systems: reviewed and no additional remarkable complaints except as stated Palliative Care-Exam - Constitutional Vitals: Temp Pulse Resp BP Pulse Ox 97.5 F L 93 20 85/51 91 07/29/17 07:00 07/29/17 07:00 07/29/17 07:57 07/29/17 07:00 07/29/17 07:57 General appearance: Present: cooperative, thin - Head Head Exam: Present: atraumatic, normocephalic - Respiratory Additional comments: Mild expiratory wheezing present. - Cardiovascular Cardiovascular exam: Present: RRR, +S1, +S2 - GI/Abdominal Exam additional comments: Soft, distended. No guarding present. Tenderness to palpation in the left upper quadrant. - Extremities Exam Extremities exam: Absent: calf tenderness, pedal edema - Neurological Exam Neurological exam: Present: alert, oriented X3, no focal deficits Internal Medicine - CN: Reslt - Labs CBC & Chem 7: 07/29/17 05:27 07/29/17 05:27 Labs: Short CBC 07/29/17 Range/Units 05:27 WBC 11.4 H (4.3-11.1) K/mcL Hgb 11.8 D (11.5-15.4) g/dL Hct 36.3 (35.3-44.9) % Plt Count 172 (140-400) K/mcL Neutrophils # 8.9 (1.6-8.9) K/mcL BMP 07/29/17 05:27 Sodium 139 Potassium 3.7 Chloride 99 Carbon Dioxide 27 BUN 31 H Creatinine 0.72 Glucose 113 H Calcium 8.9 - ABG Interpretation ABG results: PT/INR, D-dimer PT 13.6 Seconds (9.4-12.1) H 07/29/17 05:27 Consult Discharge Plan - Plan Referrals: Max Lopez DO [Primary Care Provider] - Palliative Quality Palliative Quality: Screen for Code Status: Yes, Screen for Goals of Care: Yes, Screen for Pain: Yes, If Pain Regimen Started, Initiate Bowel Regimen: Yes, Screen for Nausea/Vomitting: Yes <Fred Jordan - Last Filed: 07/29/17 11:17> Date of Encounter: 07/29/17 Palliative-CN HPI - Data of Consult Requesting Physician: Jeannette Espinoza MD Primary Care Provider: Max Lopez - Consult Narrative History of present illness: Ms. Rogers is a 72 year old female CC: Jeannette Espinoza MD Palliative Care-Exam - Constitutional Vitals: Temp Pulse Resp BP Pulse Ox 97.5 F L 93 20 85/51 91 07/29/17 07:00 07/29/17 07:00 07/29/17 07:57 07/29/17 07:00 07/29/17 07:57 Internal Medicine - CN: Reslt - Labs CBC & Chem 7: 07/29/17 05:27 07/29/17 05:27 Labs: Short CBC 07/29/17 Range/Units 05:27 WBC 11.4 H (4.3-11.1) K/mcL Hgb 11.8 D (11.5-15.4) g/dL Hct 36.3 (35.3-44.9) % Plt Count 172 (140-400) K/mcL Neutrophils # 8.9 (1.6-8.9) K/mcL BMP 07/29/17 05:27 Sodium 139 Potassium 3.7 Chloride 99 Carbon Dioxide 27 BUN 31 H Creatinine 0.72 Glucose 113 H Calcium 8.9 - ABG Interpretation ABG results: PT/INR, D-dimer PT 13.6 Seconds (9.4-12.1) H 07/29/17 05:27 - Attending Attestation I examined this patient and my medical decision-making was reviewed with the Resident Physician. I agree with the documented findings, disposition and treatment plan as described except to the extent set forth below.
--- NOTE | 2017-07-29 12:31 | Oncology Inp Consult Note ---
<Jimmie Sanchez - Last Filed: 07/30/17 12:53> Date of Encounter: 07/30/17 - Data of Consult Requesting Physician: Jeannette Espinoza MD Primary Care Provider: Max Lopez - Consult Narrative History of present illness: I have discussed the above plan with patient today. We have reviewed progression in CT imagng /need for systemic therapy sometime sooner than later. She has had various chemo regimen in the past and her tolerance was poor and there are limitations with future chemotherapeutic options. She is feeling improved with conservative treatment but not in a state to decide on further care/hospice. Palliative care follow up appreciated. I examined this patient and my medical decision-making was reviewed with the Advanced Practice Nurse, Tracy Swanson. I agree with the documented findings, disposition and treatment plan as described except to the extent set forth below. Medications and Allergies Budesonide/Formoterol 80/4.5 [Symbicort 80/4.5] 2 puff IH BID 10/18/16 [History ] Ipratropium/Albuterol Neb [Duoneb] 3 ml IH Q6HR PRN 10/18/16 [History] Potassium Chloride [K-Tab ER] 20 meq PO DAILY 10/18/16 [History] Lidocaine/Prilocaine [Emla] 1 appl TP AD #30 gm 10/19/16 [Rx] Albuterol Sulfate [Ventolin Hfa] 2 puff IH Q6H PRN #1 01/06/17 [Rx] LORazepam [Ativan] 1 mg PO Q4HR PRN #30 tablet 04/14/17 [Rx] Omeprazole 20 mg PO DAILY #30 tablet. 06/02/17 [Rx] Ondansetron [Zofran] 8 mg PO Q8HR PRN #30 tablet 06/02/17 [Rx] HYDROcodone/Acet 5/325 mg [Epworth 5-325 mg] 1 - 2 tab PO Q6H PRN 30 Days #90 tab 06/20/17 [Rx] Mirtazapine [Remeron] 15 mg PO HS #30 tablet 07/20/17 [Rx] Metoclopramide [Reglan] 5 mg PO QIDAC #600 mls 07/25/17 [Rx] Insulin Glargine,Hum.rec.anlog [Gabi Pena U-100] 35 unit SQ QAM 07/28/17 [History] 3 Allergy/AdvReac Type Severity Reaction Status Date / Time No Known Allergies Allergy Verified 06/20/17 11:43 Oncology - Exam - Constitutional Vitals: Temp Pulse Resp BP Pulse Ox 97.4 F L 82 18 100/58 97 07/30/17 10:54 07/30/17 10:54 07/30/17 10:54 07/30/17 10:54 07/30/17 10:54 Oncology - Results Labs: Short CBC 07/30/17 Range/Units 05:02 WBC 10.7 (4.3-11.1) K/mcL Hgb 11.1 L (11.5-15.4) g/dL Hct 34.2 L (35.3-44.9) % Plt Count 147 (140-400) K/mcL Neutrophils # 8.3 (1.6-8.9) K/mcL BMP 07/30/17 05:02 Sodium 141 Potassium 3.3 L Chloride 101 Carbon Dioxide 30 H BUN 20 Creatinine 0.55 L Glucose 112 H Calcium 9.4 Consult Discharge Plan - Plan Referrals: Max Lopez DO [Primary Care Provider] - <Tracy Swanson - Last Filed: 08/01/17 09:12> Date of Encounter: 07/29/17 Time of Encounter: 12:31 Assessment and Plan (1) Stage IV adenocarcinoma of pancreas Status: Acute Assessment and plan: Stage IV ([id number]) pancreatic adenocarcinoma. Treatment intent: Palliative. Current treatment: None Prior therapy: 1. ERCP with metal stent 10/18/16 2. Dose attenuated FOLFIRINOX initiated 10/27/16 x 3 cycles. Stopped secondary to disease stability and toxicity 3. Gemcitabine/Abraxane 12/23/16-04/14/17 with normalization of CA 19-9 As detailed in HPI, following discussion with Dr. Hook at most previous appointment, decision was made for treatment holiday. Now presents with imaging indicating signs of disease progression. Discussed CT imaging with patient and patients . They wish to continue to discuss their options with each other over the weekend. There has been discussion over pursuing hospice care while at home which would be an appropriate course of action should she chose this path. Palliative care has already been consulted and following patient. Patient and patients asked about the role of chemotherapy if acute issues resolve, they are also considering pursuit of chemotherapy treatment, but again, are undecided at this time. I think it is perfectly reasonable to give patient and patients time to discuss goals of care options while we also giving time to continue to monitor for her response to NG tube decompression. While she is symptomatically improving now, I am concerned that her obstruction may not improve without surgical intervention, for which she is a poor candidate for (or should she improve, she may likely experience obstruction again in near future). At which time, continued discussions regarding goals of care will need to be revisited at that time. She is a DNR-CCA DNI. (2) Gastric outlet obstruction Status: Acute Assessment and plan: Management per surgical team. Consultation note reviewed: CT of the abdomen on 07/28/2017 shows massive distention of the stomach due to gastric obstruction likely at the level of the 2nd segment of the duodenum, hepatic metastatic disease, and interval enlargement of right lower lobe nodule and juxta cardiac lymph node, compatible with metastases. Patient is a poor surgical candidate. She has NG tube placed at this time for decompression, may consider PEG tube placement for decompression but no other surgical intervention at this time. She is NPO and has IVF. Monitoring response to these interventions at this time. Symptomatically, patient reports she is improving. - Data of Consult Patient: known to practice within the last 3 years Consult date: 07/29/17 Requesting Physician: Jeannette Espinoza MD Primary Care Provider: Max Lopez - Consult Narrative Reason for consult: pancreatic adenocarcinoma, stage IV History of present illness: Ms. Rogers is a 72 year old female with oncologic history significant for stage IV ([id number]) pancreatic adenocarcinoma, Biliary obstruction s/p ERCP and metal stent 10/18, Diabetes mellitus, controlled with insulin glargine 30 u, cancer associated pain, weight loss and depression. Prior treatment included ERCP with metal stent 10/18/16, Dose attenuated FOLFIRINOX initiated 10/27/16 x 3 cycles ( Stopped secondary to disease stability and toxicity), Gemcitabine/Abraxane -04/14/17 with normalization of CA 19-9. At Ms. Rogers's most previous appointment with Dr. Hook about 6 weeks ago, he had discussed her lung pathology report s/p right lung mass core needle biopsy, which revealed metastatic disease. Treatment plan and options then changed as there was then no role for concurrent chemoradiation. The patient was informed of the now palliative intent of treatment. Following further discussion of treatment options available, the ultimate decision was to take a break from therapy for about 2 months time. This would allow her to spend quality time with family and friends. The option was left open for further discussion regarding treatment options at any point in time during this break or at sign of progression. Ms. Rogers and her report that they have enjoyed their time over the past few weeks until just recently. They were able to take a family vacation to [place] beginning/mid June with Ms. Arias son and two grandchildren. However, upon her return she began to experience abdominal pain, abdominal fullness, early satiety, nausea, decreased appetite with little oral intake and eventual vomiting of bilious like liquid per patient. Symptoms worsened over the past 10 days prior to her presentation to the ER. Bowel movements have been regular during this time per patient, her most recent BM was last evening. CT abdomen/pelvis without contrast reveals massive distention of the stomach due to gastric obstruction likely at the level of the 2nd segment of the duodenun, Cystic lesion adjacent to the gastric antrum appears to communicate with the neck of the gallbladder in may represent tumor or pseudocyst, Hepatic metastatic disease, Interval enlargement of right lower lobe nodule and juxta cardiac lymph node, compatible with metastases and Small left pleural effusion Past Med Surg Social Fam HX - Past Medical History Medical history: cancer, COPD, diabetes, hypertension, kidney stones Psychiatric history: no psych history - Past Surgical History Surgical History: cholecystectomy - Social History Smoking Status: Former smoker Smokeless Tobacco Status: No Alcohol use: none Drug use: none - Family History Mother Living Status: Hx Family Cardiac Disorders: Yes Constitutional: Present: anorexia, fatigue, weakness, weight loss. Absent: chills, fever(s), frequent falls Eyes: Absent: change in vision Cardiovascular: Absent: chest pain, irregular heart rhythm, palpitations Respiratory: Present: dyspnea on exertion. Absent: cough Gastrointestinal: Present: as per HPI Genitourinary: Absent: dysuria Musculoskeletal: Present: muscle weakness Integumentary: Absent: wounds Neurological: Absent: focal weakness, frequent falls, loss of vision Additional comments: dizziness with standing Psychiatric: Present: depression Hematologic/Lymphatic: Present: as per HPI Oncology - Exam - Constitutional Vitals: Temp Pulse Resp BP Pulse Ox 97.7 F 80 18 100/61 94 07/29/17 11:00 07/29/17 11:00 07/29/17 11:00 07/29/17 11:00 07/29/17 11:00 General appearance: cooperative, no acute distress, no febrile Exam: chronically ill appearing, cachectic - Head Head exam: Present: atraumatic - ENT ENT exam: Present: mucous membranes dry Additional comments: NG tube in place with drainage of dark green/brown liquid - Respiratory Respiratory exam: Present: wheezes. Absent: respiratory distress - Cardiovascular Cardiovascular exam: Present: RRR, +S1, +S2 - GI/Abdominal GI/Abdominal exam: Present: hypoactive bowel sounds, soft, tenderness Additional comments: mild diffuse tenderness - Extremities Exam Extremities exam: Present: normal inspection. Absent: calf tenderness - Neurological Exam Neurological exam: Present: alert, oriented X3, no focal deficits, strengths equal and symetr throughout - Psychiatric Psychiatric exam: Present: flat affect - Skin Skin exam: Present: dry, intact, pallor, warm Oncology - Results Labs: Short CBC 07/29/17 Range/Units 05:27 WBC 11.4 H (4.3-11.1) K/mcL Hgb 11.8 D (11.5-15.4) g/dL Hct 36.3 (35.3-44.9) % Plt Count 172 (140-400) K/mcL Neutrophils # 8.9 (1.6-8.9) K/mcL BMP 07/29/17 05:27 Sodium 139 Potassium 3.7 Chloride 99 Carbon Dioxide 27 BUN 31 H Creatinine 0.72 Glucose 113 H Calcium 8.9
--- NOTE | 2017-07-29 19:53 | Internal Med Progress Note ---
Date of Encounter: 07/29/17 Time of Encounter: 15:53 - Assessment and plan (1) Bowel obstruction Current Visit: Yes Status: Acute Assessment and plan: CT shows: Massive distention of the stomach due to gastric obstruction likely at the level of the 2nd segment of the duodenum. Cystic lesion adjacent to the gastric antrum appears to communicate with the neck of the gallbladder in may represent tumor or pseudocyst. Hepatic metastatic disease. Interval enlargement of right lower lobe nodule and juxta cardiac lymph node, compatible with metastases. Patient is tachycardic. Afebrile. Leukocytosis of 17.9. Lactic acid 2.7. No anemia. BMP is consistent with dehydration. Mild elevation in AST and alkaline phosphatase. Lipase is normal. The ED physician did call and discuss the patient with the surgical team, who will evaluate the patient in the morning. However, due to the patient's history and poor health status I expect she will be treated symptomatically and medically, as she would be a poor surgical candidate. Continue NG tube suction, NPO, PRN nausea control, pain control, IV fluids (LR as she is currently NPO) Surgery consultd, recommendations appreciated, patient may need decompression with PEG tube. Qualifiers: Intestinal obstruction type: other intestinal obstruction Intestinal obstruction extent: unspecified extent Qualified Code(s): K56.699 - Other intestinal obstruction unspecified as to partial versus complete obstruction (2) Gastric outlet obstruction Current Visit: Yes Status: Acute (3) Stage IV adenocarcinoma of pancreas Current Visit: Yes Status: Acute Assessment and plan: There is confirmed metastasis by biopsy to the lungs. Last oncology note on mentions that chemotherapy has been stopped secondary to disease stability and toxicity. She reports that they were going to take a couple months off and then reevaluate. I did have a lengthy discussion with both the patient and her about the extent of her cancer. We discussed the difference in quality versus quantity of life. Both patient and her are aware of how severe her disease is. The patient did express that she would prefer quality of life over prolongation of life. Palliative services consulted , patient and are thinking of doing home with hospice. (4) Altered nutrition in oncology patient Current Visit: Yes Status: Acute Assessment and plan: Patient has not been eating or drinking well over the past 2 weeks due to bowel obstruction. She appears very cachectic. She will need planning for nutritional needs going forward, whether that be a feeding tube or some sort of nutritional supplementation. We will consult dietary to assist in this planning process. (5) COPD (chronic obstructive pulmonary disease) Current Visit: Yes Status: Acute Assessment and plan: Hx of COPD, not in acute exacerbation. Patient reports that her breathing is about at baseline. We will continue home inhalers and respiratory support. Qualifiers: COPD type: unspecified COPD Qualified Code(s): J44.9 - Chronic obstructive pulmonary disease, unspecified (6) Diabetes mellitus Current Visit: Yes Status: Acute Assessment and plan: Patient takes U-100 at home but she is NPO and so will hold. Continue sliding scale insulin Qualifiers: Diabetes mellitus type: type 2 Diabetes mellitus chcf insulin use: with intermediate card tender use Diabetes mellitus complication status: with unspecified complications Qualified Code(s): E11.8 - Type 2 diabetes mellitus with unspecified complications; Z79.4 - intermission coordinator (current) use of insulin; Z79.4 - intermission coordinator (current) use of insulin; Z79.4 - jail (current) use of insulin; Z79.4 - jail (current) use of insulin (7) Goals of care, counseling/discussion Current Visit: No Status: Acute (8) Hypertension Current Visit: Yes Status: Acute Qualifiers: Hypertension type: essential hypertension Qualified Code(s): I10 - Essential (primary) hypertension (9) DVT prophylaxis Current Visit: Yes Status: Acute Assessment and plan: SCDs - Subjective Interval history: Patient states she feels better with NG tube. Otherwise has no complaints. Nausea is improved. - Constitutional Vitals: Temp Pulse Resp BP Pulse Ox 97.8 F 92 17 91/54 94 07/29/17 15:41 07/29/17 15:41 07/29/17 15:41 07/29/17 15:41 07/29/17 15:41 General appearance: Present: cachectic, A&O X 3, no acute distress, answers questions appropriately Exam: - Head Head exam: Present: atraumatic, normocephalic - Eye Eye exam: Present: EOMI, PERRL, conjuntiva pink, sclera anicteric - Neck Neck exam general surgery: Present: supple, trachea midline. Absent: lymphadenopathy - Respiratory Respiratory exam: Present: CTAB. Absent: accessory muscle use, rales, rhonchi, wheezes - Cardiovascular Cardiovascular exam: Present: +S1, +S2, tachycardia. Absent: diastolic murmur, systolic murmur - GI/Abdominal GI/Abdominal exam: Present: normal bowel sounds, soft, tenderness (upper abdominal tenderness), no peritoneal signs. Absent: distended, guarding, rebound, rigid Additional comments: Abdominal exam is completed after NG tube placement, and significant amount of fluid removal. ED physician reported a distended rigidity. - Extremities Exam Extremities exam: Present: warm, radial pulses palpable and symmetrical. Absent : calf tenderness, cyanotic, pedal edema - Neurological Exam Neurological exam: Present: CN II-XII intact, oriented X3, no focal deficits. Absent: facial droop, speech deficit - Skin Skin exam: Present: dry, intact Internal Medicine: Result - Labs CBC & Chem 7: 07/30/17 05:02 07/30/17 05:02 Labs: Short CBC 07/29/17 Range/Units 05:27 WBC 11.4 H (4.3-11.1) K/mcL Hgb 11.8 D (11.5-15.4) g/dL Hct 36.3 (35.3-44.9) % Plt Count 172 (140-400) K/mcL Neutrophils # 8.9 (1.6-8.9) K/mcL BMP 07/29/17 05:27 Sodium 139 Potassium 3.7 Chloride 99 Carbon Dioxide 27 BUN 31 H Creatinine 0.72 Glucose 113 H Calcium 8.9 - ABG Interpretation ABG results: PT/INR, D-dimer PT 13.6 Seconds (9.4-12.1) H 07/29/17 05:27 Consult Discharge Plan - Plan Referrals: Max Lopez DO [Primary Care Provider] -
[2017-07-30] MEDS: Ringers Solution, Lactated 1,000 ML IVC SCH ×4 (01:05→21:34)
[2017-07-30] MEDS: Piperacillin/Tazobactam 3.375 GM in 0.9 % Sodium Chloride Mini Bag 100 ML IVPB SCH ×3 (01:06→18:50)
[2017-07-30 05:20] LABS: Basophils % 0.1 %; Eosinophils % 0.4 %; Hematocrit 34.2 % (35.3-44.9); Hemoglobin 11.1 g/dL (11.5-15.4); Immature Granulocytes % 0.6 % (0-4); Lymphocytes # 1.2 K/mcL (0.6-4.6); Lymphocytes % 10.9 %; Mean Corpuscular HGB Conc 32.5 g/dL (31.6-35.5); Mean Corpuscular Hemoglobin 29.1 pg (28.0-33.3); Mean Corpuscular Volume 89.8 fL (83.0-100.0); Mean Platelet Volume 11.2 fL (9.4-12.4); Monocytes # 1.1 K/mcL (0.0-1.3); Monocytes % 10.6 %; Neutrophils # 8.3 K/mcL (1.6-8.9); Platelet Count 147 K/mcL (140-400); Red Blood Count 3.81 M/mcL (3.82-4.97); Red Cell Distribution Width 16.1 % (11.5-14.5); Segmented Neutrophils % 77.4 %
[2017-07-30 05:35] LABS: BUN/Creatinine Ratio 36 (6-26); Blood Urea Nitrogen 20 mg/dL (8-23); Calcium 9.4 mg/dL (8.6-10.3); Carbon Dioxide 30 mEq/L (23-29); Chloride 101 mEq/L (98-107); Glucose 112 mg/dL (70-105); Osmolality,Calculated 295 (280-300); Potassium 3.3 mEq/L (3.5-5.1); Sodium 141 mEq/L (136-145); eGFR For African Americans > 60 (> 60); eGFR For Non-African Americans > 60 (> 60)
[2017-07-30] MEDS: Budesonide/Formoterol 80/4.5 MDI IH SCH ×2 (07:36→19:40)
[2017-07-30] MEDS: Insulin LISPRO 300 UNITS/3 ML VIAL SQ SCH ×4 (09:02→23:52)
[2017-07-30] MEDS: Pantoprazole 40 MG VIAL IVP SCH (09:14)
--- NOTE | 2017-07-30 10:06 | Palliative Progress Note ---
Date of Encounter: 07/30/17 Time of Encounter: 09:30 - Assessment and plan (1) Gastric outlet obstruction Current Visit: Yes Status: Acute Assessment and plan: Patient with adenocarcinoma of the pancreas with mets. Present with gastric outlet obstruction. Not a candidate for aggressive surgical management. Conservative management with NPO, NG and meds for N/V. - Possible PEG placement today for decompression - Reglan - Zofran - Protonix - GI rest (2) Cancer associated pain Current Visit: No Status: Acute Assessment and plan: Patient with adenocarcinoma of the pancreas with mets to lung. Denies pain at present. Oxycodone PRN but hasn't requested any doses. Positioned for comfort. (3) Nausea & vomiting Current Visit: No Status: Acute Assessment and plan: NG with minimal output. Scheduled for PEG later today. Has required no doses of Zofran. Remains NPO. Qualifiers: Vomiting type: unspecified Vomiting Intractability: non-intractable Qualified Code(s): R11.2 - Nausea with vomiting, unspecified (4) Goals of care, counseling/discussion Current Visit: No Status: Acute Assessment and plan: Patient and considering options in relationship to treatment versus Hospice. [facility] met with patient yesterday and educated on services. Currently DNRCC - A, DNI. Will follow-up on Tuesday on desires after they have had time to discuss goals of care. - Time Spent With Patient Total time spent is greater than 50% in coordination of care (as documented) at patient's floor/unit and/or counseling patient: 25 - 35 minutes - Subjective Interval history: Patient sitting up in bed. at bedside. Reports not feeling to bad this AM. Denies pain or nausea at present. - Constitutional Vitals: Abnormal lab results RBC 3.81 M/mcL (3.82-4.97) L 07/30/17 05:02 Hgb 11.1 g/dL (11.5-15.4) L 07/30/17 05:02 Hct 34.2 % (35.3-44.9) L 07/30/17 05:02 RDW 16.1 % (11.5-14.5) H 07/30/17 05:02 PT 13.6 Seconds (9.4-12.1) H 07/29/17 05:27 Potassium 3.3 mEq/L (3.5-5.1) L 07/30/17 05:02 Carbon Dioxide 30 mEq/L (23-29) H 07/30/17 05:02 Creatinine 0.55 mg/dL (0.60-1.20) L 07/30/17 05:02 BUN/Creatinine Ratio 36 (6-26) H 07/30/17 05:02 Glucose 112 mg/dL (70-105) H 07/30/17 05:02 POC Glucose 91 mg/dL (58-89) H 07/30/17 05:40 AST 42 Units/L (13-39) H 07/28/17 17:12 Alkaline Phosphatase 175 Units/L (34-104) H 07/28/17 17:12 Albumin 3.2 g/dL (3.5-5.7) L 07/28/17 17:12 Globulin 3.7 g/dL (2.4-3.5) H 07/28/17 17:12 Albumin/Globulin Ratio 0.9 (1.1-2.2) L 07/28/17 17:12 Lipase 3 Units/L (11-82) L 07/28/17 17:12 Urine Clarity Cloudy (Clear) A 07/28/17 18:01 Ur Specific Waucoma > 1.030 (1.010-1.025) H 07/28/17 18:01 Urine Ketones Trace mg/dL (Negative) H 07/28/17 18:01 Urine Bilirubin Large (Negative) H 07/28/17 18:01 Urine Microscopic RBC 5-15 per hpf (0-3) H 07/28/17 18:01 Ur Squamous Epith Cells Many per lpf (None-Few) H 07/28/17 18:01 - Head Head exam: Present: atraumatic, normal inspection, normocephalic - Eye Eye exam: Present: PERRL Pupils: Present: PERRL - ENT ENT exam: Present: mucous membranes moist - Neck Neck exam: Present: full ROM - Respiratory Respiratory exam: Present: decreased breath sounds - Expanded Respiratory Exam Location: decreased breath sounds: Left, Right, Lower - Cardiovascular Cardiovascular exam: Present: RRR, +S1, +S2 - GI/Abdominal GI/Abdominal exam: Present: diminished bowel sounds, soft, tenderness Additional comments: NG to LWIS. - Extremities Exam Extremities exam: Present: full ROM - Neurological Exam Neurological exam: Present: alert, oriented X3 - Psychiatric Psychiatric exam: Present: normal affect - Skin Skin exam: Present: pallor, warm Palliative Quality Palliative Quality: Screen for Code Status: Yes, Screen for Goals of Care: Yes, Screen for Pain: Yes, If Pain Regimen Started, Initiate Bowel Regimen: Yes, Screen for Nausea/Vomitting: Yes - Labs CBC & Chem 7: 07/30/17 05:02 07/30/17 05:02 Labs: Laboratory Results - last 24 hr 07/28/17 07/29/17 07/29/17 23:57 05:39 11:24 WBC RBC Hgb Hct MCV MCH MCHC RDW Plt Count MPV Immature Gran % Seg Neutrophils % Lymphocytes % Monocytes % Eosinophils % Basophils % Neutrophils # Lymphocytes # Monocytes # Eosinophils # Basophils # Sodium Potassium Chloride Carbon Dioxide BUN Creatinine Est GFR ( Amer) Est GFR (Non-Af Amer) BUN/Creatinine Ratio Glucose POC Glucose 116 H 105 H 123 H Calculated Osmolality Calcium 07/29/17 07/29/17 07/30/17 17:44 23:44 05:02 WBC 10.7 RBC 3.81 L Hgb 11.1 L Hct 34.2 L MCV 89.8 MCH 29.1 MCHC 32.5 RDW 16.1 H Plt Count 147 MPV 11.2 Immature Gran % 0.6 Seg Neutrophils % 77.4 Lymphocytes % 10.9 Monocytes % 10.6 Eosinophils % 0.4 Basophils % 0.1 Neutrophils # 8.3 Lymphocytes # 1.2 Monocytes # 1.1 Eosinophils # 0.0 Basophils # 0.0 Sodium Potassium Chloride Carbon Dioxide BUN Creatinine Est GFR ( Amer) Est GFR (Non-Af Amer) BUN/Creatinine Ratio Glucose POC Glucose 93 H 114 H Calculated Osmolality Calcium 07/30/17 07/30/17 05:02 05:40 WBC RBC Hgb Hct MCV MCH MCHC RDW Plt Count MPV Immature Gran % Seg Neutrophils % Lymphocytes % Monocytes % Eosinophils % Basophils % Neutrophils # Lymphocytes # Monocytes # Eosinophils # Basophils # Sodium 141 Potassium 3.3 L Chloride 101 Carbon Dioxide 30 H BUN 20 Creatinine 0.55 L Est GFR ( Amer) > 60 Est GFR (Non-Af Amer) > 60 BUN/Creatinine Ratio 36 H Glucose 112 H POC Glucose 91 H Calculated Osmolality 295 Calcium 9.4 - ABG Interpretation ABG results: PT/INR, D-dimer PT 13.6 Seconds (9.4-12.1) H 07/29/17 05:27 Consult Discharge Plan - Plan Referrals: Max Lopez DO [Primary Care Provider] -
--- NOTE | 2017-07-30 12:45 | General Surgery Progress Note ---
Date of Encounter: 07/30/17 Time of Encounter: 12:43 - Assessment and Plan (1) Stage IV adenocarcinoma of pancreas Current Visit: Yes Status: Acute Only being followed by oncology. CT scan shows evidence of progression of her metastatic pancreatic cancer (multiple hepatic lesions noted and pulmonary lesions increased in size and biopsy-proven metastatic rectal cancer). Also appears to the patient's gastric distention which has been relieved by the NG tube decompression is due to progression of her primary cancer. (2) Gastric outlet obstruction Current Visit: Yes Status: Acute I reviewed the patient's CT scan images and personally reviewed and reviewed my colleagues note from yesterday. I do think that the most appropriate course we proceed with a PEG tube for decompression so that the NG tube can be removed and she can be discharged home with hospice care. Patient agrees with this overall plan we will plan for the PEG tube placement for today. Subjective Patient reports: no new complaints, other (Patient states that she feels better. No current nausea or vomiting. NGT in place.) Objective Vital Signs - Last 8 Hours Temp Pulse Resp BP Pulse Ox 07/30/17 10:54 97.4 F L 82 18 100/58 97 07/30/17 07:02 97.9 F 80 17 94/55 94 Intake and Output 07/29/17 07/30/17 07/30/17 23:59 07:59 15:59 Intake Total 0 / 0 1580 / 1580 1000 / 1000 Output Total 900 / 900 250 / 250 300 / 300 Balance -900 / -900 1330 / 1330 700 / 700 Intake: IV Fluids 1100 / 1100 1000 / 1000 Lactated Ringers 1,000 ML @ 125 1000 / 1000 1000 / 1000 mls/hr IVC .Q8H [facility] Rx#: [id number] Zosyn 3.375 GM In 0.9 % Sodium 100 / 100 Chloride (Mini-Bag +) 100 ML @ 25 mls/hr IVPB Q8H [facility]ESE Rx#: [id number] Oral 0 / 0 480 / 480 0 / 0 Output: Urine 300 / 300 0 / 0 300 / 300 Gastric Drainage 600 / 600 250 / 250 0 / 0 Other: Meal Dinner Percent of Meal Consumed 0% Weight 62.823 kg Blood Glucose* 114 91 95 Patient Weight 07/30/17 23:59 Weight 62.823 kg - General physical appearance no distress - Abdomen Abdomen: Present: soft, non tender (Noted RUQ open cholecystectomy incision well healed. No hernias noted. ) - Labs 07/30/17 05:02 07/30/17 05:02 Diabetes panel 07/30/17 Range/Units 05:02 Sodium 141 (136-145) mEq/L Potassium 3.3 L (3.5-5.1) mEq/L Chloride 101 (98-107) mEq/L Carbon Dioxide 30 H (23-29) mEq/L BUN 20 (8-23) mg/dL Creatinine 0.55 L (0.60-1.20) mg/dL Glucose 112 H (70-105) mg/dL Calcium 9.4 (8.6-10.3) mg/dL Calcium panel 07/30/17 Range/Units 05:02 Calcium 9.4 (8.6-10.3) mg/dL Pituitary panel 07/30/17 Range/Units 05:02 Sodium 141 (136-145) mEq/L Potassium 3.3 L (3.5-5.1) mEq/L Chloride 101 (98-107) mEq/L Carbon Dioxide 30 H (23-29) mEq/L BUN 20 (8-23) mg/dL Creatinine 0.55 L (0.60-1.20) mg/dL Glucose 112 H (70-105) mg/dL Calcium 9.4 (8.6-10.3) mg/dL Adrenal panel 07/30/17 Range/Units 05:02 Sodium 141 (136-145) mEq/L Potassium 3.3 L (3.5-5.1) mEq/L Chloride 101 (98-107) mEq/L Carbon Dioxide 30 H (23-29) mEq/L BUN 20 (8-23) mg/dL Creatinine 0.55 L (0.60-1.20) mg/dL Glucose 112 H (70-105) mg/dL Calcium 9.4 (8.6-10.3) mg/dL Consult Discharge Plan - Plan Referrals: Max Lopez DO [Primary Care Provider] -
[2017-07-30] MEDS ORDERED: Simethicone 40 MG/0.6 ML MLS IR ONE ×2 (13:18→13:54)
[2017-07-30] MEDS ORDERED: *HR* Midazolam HCl 5 MG/5 ML VIAL IVP ONE (13:50)
[2017-07-30] MEDS ORDERED: *HR* FentaNYL (PF) 100 MCG/2 ML VIAL ONE (13:51)
[2017-07-30] MEDS ORDERED: *HR* FentaNYL (PF) 100 MCG/2 ML VIAL IVP ONE (14:07)
[2017-07-30] MEDS ORDERED: *HR* Midazolam HCl 2 MG/2 ML VIAL IVP ONE (14:07)
[2017-07-30] MEDS ORDERED: Tetracaine/Benzocaine/Butamben 200MG/SPRAY (100SPY/BOT) MM ONE (14:07)
[2017-07-30] MEDS ORDERED: *HR* Promethazine 25 MG/ML VIAL IVP ONE (14:07)
--- NOTE | 2017-07-30 14:07 | Pre-Sedation Evaluation ---
Pre-sedation evaluation - Pre-sedation checklist Procedure: Lung Biopsy Recent Vitals: Last Vital Signs Temp 97.4 F L 07/30/17 10:54 Pulse 82 07/30/17 10:54 Resp 18 07/30/17 10:54 BP 100/58 07/30/17 10:54 Pulse Ox 97 07/30/17 10:54 H&P (including ROS) documented in medical record: Yes Previous reaction to sedatives/anesthetics: Unknown Dietary Status: NPO after Midnight Airway Assessment: Patient can open mouth completely, TMJ function normal Dentition: No loose teeth or bridges Possible difficult airway: No ASA Classification *see protocol: CLASS III-Severe systemic disease Plan of Care: Pt appropriate candidate for procedure/moderate/conscious sedation
[2017-07-30] MEDS: Ipratropium/Albuterol Neb 3 ML IH PRN ×2 (16:04→16:10)
--- NOTE | 2017-07-30 18:07 | Internal Med Progress Note ---
Date of Encounter: 07/30/17 Time of Encounter: 18:05 - Assessment and plan (1) Bowel obstruction Current Visit: Yes Status: Acute Assessment and plan: CT shows: Massive distention of the stomach due to gastric obstruction likely at the level of the 2nd segment of the duodenum. Cystic lesion adjacent to the gastric antrum appears to communicate with the neck of the gallbladder in may represent tumor or pseudocyst. Hepatic metastatic disease. Interval enlargement of right lower lobe nodule and juxta cardiac lymph node, compatible with metastases. Patient is tachycardic. Afebrile. Leukocytosis of 17.9. Lactic acid 2.7. No anemia. BMP is consistent with dehydration. Mild elevation in AST and alkaline phosphatase. Lipase is normal. The ED physician did call and discuss the patient with the surgical team, who will evaluate the patient in the morning. However, due to the patient's history and poor health status I expect she will be treated symptomatically and medically, as she would be a poor surgical candidate. Continue NG tube suction, NPO, PRN nausea control, pain control, IV fluids (LR as she is currently NPO) 07/30 PEG tube placed today for decompression Patient stable plan for home with hospice upon discharge. Qualifiers: Intestinal obstruction type: other intestinal obstruction Intestinal obstruction extent: unspecified extent Qualified Code(s): K56.699 - Other intestinal obstruction unspecified as to partial versus complete obstruction (2) Sacral wound Current Visit: Yes Status: Acute Assessment and plan: This wound has been present since admission According to history, this may not be a pressure ulcer. at bedside said that she fell asleep on a heating pad one month ago and it has been sore ever since then, also worsened with a long car ride recently. Consult wound care Dressing applied right now Qualifiers: Encounter type: initial encounter Qualified Code(s): S31.000A - Unspecified open wound of lower back and pelvis without penetration into retroperitoneum, initial encounter (3) Gastric outlet obstruction Current Visit: Yes Status: Acute (4) Stage IV adenocarcinoma of pancreas Current Visit: Yes Status: Acute Assessment and plan: There is confirmed metastasis by biopsy to the lungs. Last oncology note on mentions that chemotherapy has been stopped secondary to disease stability and toxicity. She reports that they were going to take a couple months off and then reevaluate. I did have a lengthy discussion with both the patient and her about the extent of her cancer. We discussed the difference in quality versus quantity of life. Both patient and her are aware of how severe her disease is. The patient did express that she would prefer quality of life over prolongation of life. Palliative services consulted , patient and are thinking of doing home with hospice. (5) Altered nutrition in oncology patient Current Visit: Yes Status: Acute Assessment and plan: Patient has not been eating or drinking well over the past 2 weeks due to bowel obstruction. She appears very cachectic. She will need planning for nutritional needs going forward, whether that be a feeding tube or some sort of nutritional supplementation. We will consult dietary to assist in this planning process. (6) COPD (chronic obstructive pulmonary disease) Current Visit: Yes Status: Acute Assessment and plan: Hx of COPD, not in acute exacerbation. Patient reports that her breathing is about at baseline. We will continue home inhalers and respiratory support. Qualifiers: COPD type: unspecified COPD Qualified Code(s): J44.9 - Chronic obstructive pulmonary disease, unspecified (7) Diabetes mellitus Current Visit: Yes Status: Acute Assessment and plan: Patient takes U-100 at home but she is NPO and so will hold. Continue sliding scale insulin Qualifiers: Diabetes mellitus type: type 2 Diabetes mellitus penitentiary insulin use: with termite control service representative use Diabetes mellitus complication status: with unspecified complications Qualified Code(s): E11.8 - Type 2 diabetes mellitus with unspecified complications; Z79.4 - terminal operator (current) use of insulin; Z79.4 - terminal operator (current) use of insulin; Z79.4 - terminal operator (current) use of insulin; Z79.4 - terminal operator (current) use of insulin (8) Goals of care, counseling/discussion Current Visit: No Status: Acute (9) Hypertension Current Visit: Yes Status: Acute Qualifiers: Hypertension type: essential hypertension Qualified Code(s): I10 - Essential (primary) hypertension (10) DVT prophylaxis Current Visit: Yes Status: Acute Assessment and plan: SCDs - Subjective Interval history: Patient has returned from PEG tube placement. Abdominal pain controlled. She does complain of some soreness in her sacral region. - Constitutional Vitals: Temp Pulse Resp BP Pulse Ox 97.5 F L 85 20 111/69 94 07/30/17 15:42 07/30/17 15:42 07/30/17 15:42 07/30/17 15:42 07/30/17 15:42 General appearance: Present: cachectic, A&O X 3, no acute distress, answers questions appropriately Exam: - Head Head exam: Present: atraumatic, normocephalic - Eye Eye exam: Present: EOMI, PERRL, conjuntiva pink, sclera anicteric - Neck Neck exam general surgery: Present: supple, trachea midline. Absent: lymphadenopathy - Respiratory Respiratory exam: Present: CTAB. Absent: accessory muscle use, rales, rhonchi, wheezes - Cardiovascular Cardiovascular exam: Present: +S1, +S2, tachycardia. Absent: diastolic murmur, systolic murmur - GI/Abdominal GI/Abdominal exam: Present: normal bowel sounds, soft, tenderness (upper abdominal tenderness), no peritoneal signs. Absent: distended, guarding, rebound, rigid Additional comments: Abdominal exam is completed after NG tube placement, and significant amount of fluid removal. ED physician reported a distended rigidity. - Extremities Exam Extremities exam: Present: warm, radial pulses palpable and symmetrical. Absent : calf tenderness, cyanotic, pedal edema - Neurological Exam Neurological exam: Present: CN II-XII intact, oriented X3, no focal deficits. Absent: facial droop, speech deficit - Skin Skin exam: Present: dry, intact Sacral region has about 4 x4 region of erythema around bony prominence of coccyx. There is no edema but does dorys. Internal Medicine: Result - Labs CBC & Chem 7: 07/30/17 05:02 07/30/17 05:02 Labs: Short CBC 07/30/17 Range/Units 05:02 WBC 10.7 (4.3-11.1) K/mcL Hgb 11.1 L (11.5-15.4) g/dL Hct 34.2 L (35.3-44.9) % Plt Count 147 (140-400) K/mcL Neutrophils # 8.3 (1.6-8.9) K/mcL BMP 07/30/17 05:02 Sodium 141 Potassium 3.3 L Chloride 101 Carbon Dioxide 30 H BUN 20 Creatinine 0.55 L Glucose 112 H Calcium 9.4 - ABG Interpretation ABG results: PT/INR, D-dimer PT 13.6 Seconds (9.4-12.1) H 07/29/17 05:27 - Impressions Impressions Abdomen/Pelvis CT 07/30/17 16:14 IMPRESSION: 1. Large amount of free intraperitoneal air which may be related to recent gastrostomy tube placement; however, this is more than is typically seen. Although there is no convincing source, there is a pocket of extraluminal gas in the abdominal right upper quadrant, near the colonic hepatic flexure. As such, this may represent source of the free intraperitoneal air. 2. Circumferential thickening of the colon suggestive of colitis. 3. Marked distention of the stomach with focal thickening of the posterior gastric wall at the level of the antrum of unclear etiology, possibly a hematoma. 4. Moderate amount of free fluid in the pelvis. 5. Sigmoid diverticulosis. No evidence of diverticulitis. 6. Left hepatic lobe pneumobilia with mild left intrahepatic ductal dilatation. Of note, the biliary stent has slightly migrated distally. 7. Persistent peripheral wall 2.3 cm nodule in the right lower lobe, previously biopsied. Please refer to pathology report. 8. Left lower lobe consolidation with small left pleural effusion. D/ / 07/30/2017 17:44:31 Collin Barcenas MD / vinod Interpreting Provider: Collin Barcenas MD Consult Discharge Plan - Plan Referrals: Max Lopez DO [Primary Care Provider] -
[2017-07-31] MEDS: Piperacillin/Tazobactam 3.375 GM in 0.9 % Sodium Chloride Mini Bag 100 ML IVPB SCH ×3 (02:52→18:07)
[2017-07-31] MEDS: Ipratropium/Albuterol Neb 3 ML IH PRN ×2 (03:37→14:49)
[2017-07-31] MEDS: Ringers Solution, Lactated 1,000 ML IVC SCH (07:00)
[2017-07-31] MEDS: Budesonide/Formoterol 80/4.5 MDI IH SCH ×2 (07:58→21:29)
[2017-07-31 08:25] LABS: Hemoglobin 10.9 g/dL (11.5-15.4); Immature Granulocytes % 0.5 % (0-4); Lymphocytes % 11.8 %; Mean Corpuscular HGB Conc 32.1 g/dL (31.6-35.5); Mean Corpuscular Hemoglobin 28.8 pg (28.0-33.3); Mean Corpuscular Volume 89.9 fL (83.0-100.0); Mean Platelet Volume 11.7 fL (9.4-12.4); Monocytes % 10.6 %; Platelet Count 123 K/mcL (140-400); Red Blood Count 3.78 M/mcL (3.82-4.97); Red Cell Distribution Width 16.3 % (11.5-14.5); Segmented Neutrophils % 76.6 %
[2017-07-31 08:26] LABS: Basophils % 0.1 %; Eosinophils % 0.4 %; Monocytes # 0.9 K/mcL (0.0-1.3); Neutrophils # 6.6 K/mcL (1.6-8.9); Nucleated Red Blood Cells 0.5 /100 WBC (0)
[2017-07-31 08:39] LABS: BUN/Creatinine Ratio 29 (6-26); Blood Urea Nitrogen 16 mg/dL (8-23); Calcium 9.3 mg/dL (8.6-10.3); Carbon Dioxide 30 mEq/L (23-29); Chloride 104 mEq/L (98-107); Glucose 125 mg/dL (70-105); Osmolality,Calculated 299 (280-300); Potassium 3.3 mEq/L (3.5-5.1); Sodium 143 mEq/L (136-145); eGFR For African Americans > 60 (> 60); eGFR For Non-African Americans > 60 (> 60)
[2017-07-31] MEDS: Insulin LISPRO 300 UNITS/3 ML VIAL SQ SCH ×4 (09:45→20:13)
[2017-07-31] MEDS: Pantoprazole 40 MG VIAL IVP SCH (09:52)
--- NOTE | 2017-07-31 12:38 | General Surgery Progress Note ---
Date of Encounter: 07/31/17 Time of Encounter: 12:36 - Assessment and Plan (1) Stage IV adenocarcinoma of pancreas Current Visit: Yes Status: Acute See below. (2) Gastric outlet obstruction Current Visit: Yes Status: Acute PEG site CDI. OK to start clears. Local wound care of PEG site. Keep PEG to gravity drainage. Will sign off, thank you. Subjective Patient reports: other (Patient admits to some abdominal pain around the PEG. No current nausea. PEG to gravity.) Objective Vital Signs - Last 8 Hours Temp Pulse Resp BP Pulse Ox 07/31/17 12:06 111/62 07/31/17 12:00 97.5 F L 84 18 108/66 97 07/31/17 11:10 97.4 F L 85 18 101/59 95 07/31/17 10:00 97.4 F L 83 19 108/64 93 07/31/17 08:00 18 96 07/31/17 06:14 98.6 F 87 18 109/64 96 07/31/17 05:13 98.0 F 89 17 106/61 89 Intake and Output 07/30/17 07/31/17 07/31/17 23:59 07:59 15:59 Intake Total 1000 / 1000 1100 / 1100 100 / 100 Output Total 0 / 0 0 / 0 Balance 1000 / 1000 1100 / 1100 100 / 100 Intake: IV Fluids 1000 / 1000 1100 / 1100 100 / 100 Lactated Ringers 1,000 ML @ 125 1000 / 1000 1000 / 1000 mls/hr IVC .Q8H [facility] Rx#: [id number] Zosyn 3.375 GM In 0.9 % Sodium 100 / 100 100 / 100 Chloride (Mini-Bag +) 100 ML @ 25 mls/hr IVPB Q8H [facility] Rx#: [id number] Oral 0 / 0 0 / 0 Output: Urine 0 / 0 0 / 0 Other: Meal NPO NPO # Voids 1 Weight 62.826 kg Blood Glucose* 104 111 122 Patient Weight 07/31/17 23:59 Weight 62.826 kg - General physical appearance well nourished - Abdomen Abdomen: Present: soft, tender (Mild tenderness around the PEG site. Bumper is noted at 2cm from skin. ) - Labs 07/31/17 08:04 07/31/17 08:04 Diabetes panel 07/31/17 Range/Units 08:04 Sodium 143 (136-145) mEq/L Potassium 3.3 L (3.5-5.1) mEq/L Chloride 104 (98-107) mEq/L Carbon Dioxide 30 H (23-29) mEq/L BUN 16 (8-23) mg/dL Creatinine 0.56 L (0.60-1.20) mg/dL Glucose 125 H (70-105) mg/dL Calcium 9.3 (8.6-10.3) mg/dL Calcium panel 07/31/17 Range/Units 08:04 Calcium 9.3 (8.6-10.3) mg/dL Pituitary panel 07/31/17 Range/Units 08:04 Sodium 143 (136-145) mEq/L Potassium 3.3 L (3.5-5.1) mEq/L Chloride 104 (98-107) mEq/L Carbon Dioxide 30 H (23-29) mEq/L BUN 16 (8-23) mg/dL Creatinine 0.56 L (0.60-1.20) mg/dL Glucose 125 H (70-105) mg/dL Calcium 9.3 (8.6-10.3) mg/dL Adrenal panel 07/31/17 Range/Units 08:04 Sodium 143 (136-145) mEq/L Potassium 3.3 L (3.5-5.1) mEq/L Chloride 104 (98-107) mEq/L Carbon Dioxide 30 H (23-29) mEq/L BUN 16 (8-23) mg/dL Creatinine 0.56 L (0.60-1.20) mg/dL Glucose 125 H (70-105) mg/dL Calcium 9.3 (8.6-10.3) mg/dL Consult Discharge Plan - Plan Referrals: Max Lopez DO [Primary Care Provider] -
--- NOTE | 2017-07-31 14:11 | Internal Med Progress Note ---
Date of Encounter: 07/31/17 Time of Encounter: 14:11 - Assessment and plan (1) Bowel obstruction Current Visit: Yes Status: Acute Assessment and plan: CT on admission showed massive distention of the stomach due to gastric obstruction likely at the level of the 2nd segment of the duodenum. Cystic lesion adjacent to the gastric antrum appears to communicate with the neck of the gallbladder in may represent tumor or pseudocyst. Hepatic metastatic disease. Interval enlargement of right lower lobe nodule and juxta cardiac lymph node, compatible with metastases. - 07/30 PEG tube placed today for decompression - 07/31 patient having some distension she was drinking excessive carbonated beverages when she advanced her diet. - Stop carbonated beverages, patient instructed to advance diet at slower rate instead of eating full meals. Add [place]cone plan for home with hospice upon discharge. Qualifiers: Intestinal obstruction type: other intestinal obstruction Intestinal obstruction extent: unspecified extent Qualified Code(s): K56.699 - Other intestinal obstruction unspecified as to partial versus complete obstruction (2) Sacral wound Current Visit: Yes Status: Acute Assessment and plan: This wound has been present since admission According to history, this may not be a pressure ulcer. at bedside said that she fell asleep on a heating pad one month ago and it has been sore ever since then, also worsened with a long car ride recently. Consult wound care Need wound care for home going Qualifiers: Encounter type: initial encounter Qualified Code(s): S31.000A - Unspecified open wound of lower back and pelvis without penetration into retroperitoneum, initial encounter (3) Gastric outlet obstruction Current Visit: Yes Status: Acute (4) Stage IV adenocarcinoma of pancreas Current Visit: Yes Status: Acute Assessment and plan: There is confirmed metastasis by biopsy to the lungs. Last oncology note on mentions that chemotherapy has been stopped secondary to disease stability and toxicity. She reports that they were going to take a couple months off and then reevaluate. I did have a lengthy discussion with both the patient and her about the extent of her cancer. We discussed the difference in quality versus quantity of life. Both patient and her are aware of how severe her disease is. The patient did express that she would prefer quality of life over prolongation of life. Palliative services consulted , patient and are thinking of doing home with hospice. (5) Altered nutrition in oncology patient Current Visit: Yes Status: Acute Assessment and plan: Patient has not been eating or drinking well over the past 2 weeks due to bowel obstruction. She appears very cachectic. She will need planning for nutritional needs going forward, whether that be a feeding tube or some sort of nutritional supplementation. We will consult dietary to assist in this planning process. (6) COPD (chronic obstructive pulmonary disease) Current Visit: Yes Status: Acute Assessment and plan: Hx of COPD, not in acute exacerbation. Patient reports that her breathing is about at baseline. We will continue home inhalers and respiratory support. Qualifiers: COPD type: unspecified COPD Qualified Code(s): J44.9 - Chronic obstructive pulmonary disease, unspecified (7) Diabetes mellitus Current Visit: Yes Status: Acute Assessment and plan: Patient takes U-100 at home but she is NPO and so will hold. Continue sliding scale insulin Qualifiers: Diabetes mellitus type: type 2 Diabetes mellitus room service food service attendant insulin use: with room service food service attendant use Diabetes mellitus complication status: with unspecified complications Qualified Code(s): E11.8 - Type 2 diabetes mellitus with unspecified complications; Z79.4 - alf (current) use of insulin; Z79.4 - inspector assembly (current) use of insulin; Z79.4 - alf (current) use of insulin; Z79.4 - alf (current) use of insulin (8) Goals of care, counseling/discussion Current Visit: No Status: Acute (9) Hypertension Current Visit: Yes Status: Acute Qualifiers: Hypertension type: essential hypertension Qualified Code(s): I10 - Essential (primary) hypertension (10) DVT prophylaxis Current Visit: Yes Status: Acute Assessment and plan: SCDs - Subjective Interval history: Patient had fall last night and had contusion of elbow and head. CT scans were negative for intracranial bleeds and negative fractures. - Constitutional Vitals: Temp Pulse Resp BP Pulse Ox 97.5 F L 84 18 111/62 97 07/31/17 12:00 07/31/17 12:00 07/31/17 12:00 07/31/17 12:06 07/31/17 12:00 General appearance: Present: cachectic, A&O X 3, no acute distress, answers questions appropriately Exam: - Head Head exam: Present: atraumatic, normocephalic - Eye Eye exam: Present: EOMI, PERRL, conjuntiva pink, sclera anicteric - Neck Neck exam general surgery: Present: supple, trachea midline. Absent: lymphadenopathy - Respiratory Respiratory exam: Present: CTAB. Absent: accessory muscle use, rales, rhonchi, wheezes - Cardiovascular Cardiovascular exam: Present: +S1, +S2, tachycardia. Absent: diastolic murmur, systolic murmur - GI/Abdominal GI/Abdominal exam: Present: normal bowel sounds, soft, tenderness (upper abdominal tenderness), no peritoneal signs. Absent: distended, guarding, rebound, rigid Additional comments: Abdominal exam is completed after NG tube placement, and significant amount of fluid removal. ED physician reported a distended rigidity. - Extremities Exam Extremities exam: Present: warm, radial pulses palpable and symmetrical. Absent : calf tenderness, cyanotic, pedal edema - Neurological Exam Neurological exam: Present: CN II-XII intact, oriented X3, no focal deficits. Absent: facial droop, speech deficit - Skin Skin exam: Present: dry, intact Sacral region has about 4 x4 region of erythema around bony prominence of coccyx. There is no edema but does dorys. Right scalp contusion above right forhead, 2x2 cm. Right elbow contusion 2x2 cm excoriation non-bleeding Internal Medicine: Result - Labs CBC & Chem 7: 07/31/17 08:04 07/31/17 08:04 Labs: Short CBC 07/31/17 Range/Units 08:04 WBC 8.6 (4.3-11.1) K/mcL Hgb 10.9 L (11.5-15.4) g/dL Hct 34.0 L (35.3-44.9) % Plt Count 123 L (140-400) K/mcL Neutrophils # 6.6 (1.6-8.9) K/mcL BMP 07/31/17 08:04 Sodium 143 Potassium 3.3 L Chloride 104 Carbon Dioxide 30 H BUN 16 Creatinine 0.56 L Glucose 125 H Calcium 9.3 - ABG Interpretation ABG results: PT/INR, D-dimer PT 13.6 Seconds (9.4-12.1) H 07/29/17 05:27 - Impressions Impressions Abdomen/Pelvis CT 07/30/17 16:14 IMPRESSION: 1. Large amount of free intraperitoneal air which may be related to recent gastrostomy tube placement; however, this is more than is typically seen. Although there is no convincing source, there is a pocket of extraluminal gas in the abdominal right upper quadrant, near the colonic hepatic flexure. As such, this may represent source of the free intraperitoneal air. 2. Circumferential thickening of the colon suggestive of colitis. 3. Marked distention of the stomach with focal thickening of the posterior gastric wall at the level of the antrum of unclear etiology, possibly a hematoma. 4. Moderate amount of free fluid in the pelvis. 5. Sigmoid diverticulosis. No evidence of diverticulitis. 6. Left hepatic lobe pneumobilia with mild left intrahepatic ductal dilatation. Of note, the biliary stent has slightly migrated distally. 7. Persistent peripheral wall 2.3 cm nodule in the right lower lobe, previously biopsied. Please refer to pathology report. 8. Left lower lobe consolidation with small left pleural effusion. D/ / 07/30/2017 17:44:31 Collin Barcenas MD / vinod Interpreting Provider: Collin Barcenas MD Head CT 07/31/17 00:00 IMPRESSION: No acute intracranial abnormality. No acute cervical spine fracture No acute thoracic spine fracture Left greater than right pleural effusions and left greater than right basilar airspace disease. D/ / Alpesh Ariza / Alpesh Ariza Interpreting Provider: Alpesh Ariza Cervical Spine CT 07/31/17 00:30 IMPRESSION: No acute intracranial abnormality. No acute cervical spine fracture No acute thoracic spine fracture Left greater than right pleural effusions and left greater than right basilar airspace disease. D/ / Alpesh Ariza / Alpesh Ariza Interpreting Provider: Alpesh Ariza Thoracic Spine CT 07/31/17 00:31 IMPRESSION: No acute intracranial abnormality. No acute cervical spine fracture No acute thoracic spine fracture Left greater than right pleural effusions and left greater than right basilar airspace disease. D/ / Alpesh Ariza / Alpesh Ariza Interpreting Provider: Alpesh Ariza Knee X-Ray 07/31/17 00:35 IMPRESSION: No fracture or malalignment. D/ / Armando Wray MD / Armando Wray MD Interpreting Provider: Armando Wray MD Elbow X-Ray 07/31/17 00:37 IMPRESSION: No fracture or malalignment. D/ / Armando Wray MD / Armando Wray MD Interpreting Provider: Armando Wray MD X-Ray 07/31/17 01:00 IMPRESSION: Indeterminate bowel-gas pattern. D/ / Armando Wray MD / Armando Wray MD Interpreting Provider: Armnado Wray MD Consult Discharge Plan - Plan Referrals: Max Lopez DO [Primary Care Provider] -
[2017-07-31] MEDS ORDERED: Simethicone 80 MG TAB.CHEW PO PRN (14:18)
[2017-07-31] MEDS ORDERED: Simethicone 80 MG TAB.CHEW PO ONE (14:20)
[2017-07-31] MEDS: *HR* LORazepam 2 MG/ML VIAL IVP PRN (14:52)
[2017-07-31] MEDS ORDERED: OXYCODONE Oral CONC 10 MG/0.5 ML ORAL.SYG SL STA (16:45)
[2017-07-31] MEDS ORDERED: *HR* FentaNYL (PF) 100 MCG/2 ML VIAL IVP ONE ×2 (17:34→17:50)
--- NOTE | 2017-07-31 17:55 | Event Note ---
Date of Encounter: 07/31/17 Time of Encounter: 17:53 Also the bedside to the patient's increasing pain and abdominal distention. Abdominal distention was noted on the CAT scan from yesterday. The decision was made to try placement of a paracentesis catheter to help remove the air. After obtaining consent the patient's abdomen inferior to the PEG tube site was prepped and draped in normal fashion. 1% lidocaine with epinephrine was used to anesthetize the epidermal and dermal layer followed by making an incision on this area with an 11 blade scalpel. An 8-Occitan needle/catheter was then advanced to the epidermis and dermis into the abdominal cavity with removal of air. The catheter was then fully placed and secured in place and approximately 1 L of air was suctioned/removed from the abdomen. The catheter was secured in place with 3-0 nylon suture and connected to a MARY bulb.
[2017-07-31] MEDS ORDERED: *HR* FentaNYL (PF) 100 MCG/2 ML VIAL IVP PRN (18:42)
[2017-07-31] MEDS ORDERED: *HR* OxyCODONE Immed Rel 15 MG TABLET PO PRN (22:09)
[2017-07-31] MEDS ORDERED: *HR* HYDROmorphone 2 MG/ML SYRINGE IVP PRN (22:13)
[2017-08-01] MEDS: Piperacillin/Tazobactam 3.375 GM in 0.9 % Sodium Chloride Mini Bag 100 ML IVPB SCH (03:24)
[2017-08-01 03:53] LABS: Basophils % 0.1 %; Hematocrit 36.7 % (35.3-44.9); Hemoglobin 11.6 g/dL (11.5-15.4); Immature Granulocytes % 0.6 % (0-4); Lymphocytes # 0.8 K/mcL (0.6-4.6); Lymphocytes % 5.2 %; Mean Corpuscular HGB Conc 31.6 g/dL (31.6-35.5); Mean Corpuscular Hemoglobin 28.9 pg (28.0-33.3); Mean Corpuscular Volume 91.3 fL (83.0-100.0); Mean Platelet Volume 11.4 fL (9.4-12.4); Monocytes # 1.4 K/mcL (0.0-1.3); Monocytes % 9.2 %; Nucleated Red Blood Cells 0.1 /100 WBC (0); Platelet Count 119 K/mcL (140-400); Red Blood Count 4.02 M/mcL (3.82-4.97); Red Cell Distribution Width 16.6 % (11.5-14.5); Segmented Neutrophils % 84.9 %
[2017-08-01 03:57] LABS: Neutrophils # 13.2 K/mcL (1.6-8.9)
[2017-08-01 04:07] LABS: BUN/Creatinine Ratio 20 (6-26); Blood Urea Nitrogen 22 mg/dL (8-23); Calcium 9.4 mg/dL (8.6-10.3); Carbon Dioxide 28 mEq/L (23-29); Chloride 104 mEq/L (98-107); Glucose 189 mg/dL (70-105); Osmolality,Calculated 304 (280-300); Potassium 3.5 mEq/L (3.5-5.1); Sodium 143 mEq/L (136-145); eGFR For African Americans > 60 (> 60); eGFR For Non-African Americans 50 (> 60)
[2017-08-01] MEDS: Pantoprazole 40 MG VIAL IVP SCH (07:57)
[2017-08-01] MEDS: Insulin LISPRO 300 UNITS/3 ML VIAL SQ SCH ×4 (07:58→20:40)
[2017-08-01] MEDS: Budesonide/Formoterol 80/4.5 MDI IH SCH ×2 (08:15→21:24)
--- NOTE | 2017-08-01 08:28 | Internal Med Progress Note ---
Date of Encounter: 08/01/17 Time of Encounter: 08:24 - Assessment and plan (1) Bowel obstruction Current Visit: Yes Status: Acute Assessment and plan: CT on admission showed massive distention of the stomach due to gastric obstruction likely at the level of the 2nd segment of the duodenum. Cystic lesion adjacent to the gastric antrum appears to communicate with the neck of the gallbladder in may represent tumor or pseudocyst. Hepatic metastatic disease. Interval enlargement of right lower lobe nodule and juxta cardiac lymph node, compatible with metastases. - 07/30 PEG tube placed today for decompression - 07/31 patient having some distension she was drinking excessive carbonated beverages when she advanced her diet. - 08/01 paracentesis cath placed to aid with distention. Patient is feeling relief also from Dilaudid with Oxy sublingual Plan for home with hospice when stable for discharge. Appreciate Palliative recommendations for pain medication for home. Qualifiers: Intestinal obstruction type: other intestinal obstruction Intestinal obstruction extent: unspecified extent Qualified Code(s): K56.699 - Other intestinal obstruction unspecified as to partial versus complete obstruction (2) Sacral wound Current Visit: Yes Status: Suspected Assessment and plan: This wound has been present since admission According to history, this may not be a pressure ulcer. at bedside said that she fell asleep on a heating pad one month ago and it has been sore ever since then, also worsened with a long car ride recently. Consult wound care Need wound care for home going Qualifiers: Encounter type: initial encounter Qualified Code(s): S31.000A - Unspecified open wound of lower back and pelvis without penetration into retroperitoneum, initial encounter (3) Gastric outlet obstruction Current Visit: Yes Status: Acute (4) Stage IV adenocarcinoma of pancreas Current Visit: Yes Status: Acute Assessment and plan: There is confirmed metastasis by biopsy to the lungs. Last oncology note on mentions that chemotherapy has been stopped secondary to disease stability and toxicity. She reports that they were going to take a couple months off and then reevaluate. I did have a lengthy discussion with both the patient and her about the extent of her cancer. We discussed the difference in quality versus quantity of life. Both patient and her are aware of how severe her disease is. The patient did express that she would prefer quality of life over prolongation of life. Palliative services consulted , patient and are thinking of doing home with hospice. (5) Altered nutrition in oncology patient Current Visit: Yes Status: Acute Assessment and plan: Patient has not been eating or drinking well over the past 2 weeks due to bowel obstruction. She appears very cachectic. She will need planning for nutritional needs going forward, whether that be a feeding tube or some sort of nutritional supplementation. We will consult dietary to assist in this planning process. (6) COPD (chronic obstructive pulmonary disease) Current Visit: Yes Status: Acute Assessment and plan: Hx of COPD, not in acute exacerbation. Patient reports that her breathing is about at baseline. We will continue home inhalers and respiratory support. Qualifiers: COPD type: unspecified COPD Qualified Code(s): J44.9 - Chronic obstructive pulmonary disease, unspecified (7) Diabetes mellitus Current Visit: Yes Status: Acute Assessment and plan: Patient takes U-100 at home but she is NPO and so will hold. Continue sliding scale insulin Qualifiers: Diabetes mellitus type: type 2 Diabetes mellitus shelter insulin use: with lobsterman use Diabetes mellitus complication status: with unspecified complications Qualified Code(s): E11.8 - Type 2 diabetes mellitus with unspecified complications; Z79.4 - lobsterman (current) use of insulin; Z79.4 - lobsterman (current) use of insulin; Z79.4 - lobsterman (current) use of insulin; Z79.4 - lobsterman (current) use of insulin (8) Goals of care, counseling/discussion Current Visit: No Status: Acute (9) Hypertension Current Visit: Yes Status: Acute Assessment and plan: Patient currently hypotensive. Qualifiers: Hypertension type: essential hypertension Qualified Code(s): I10 - Essential (primary) hypertension (10) Lung consolidation Current Visit: Yes Status: Acute Assessment and plan: Seen on CT in left lobe. She did have hypoxic episode on 07/31 and requiring oxygen There is concern for developing early pneumonia and patient is high risk Will start Cefepime and Linezolid and obtain chest x-ray - portable 1 V since patient has too much pain to change position currently. Sputum samples and urine antigens obtained 07/31 (11) DVT prophylaxis Current Visit: Yes Status: Acute Assessment and plan: SCDs - Subjective Interval history: 07/30: PEG tube placed. 07/31: Patient had fall overnight and had contusion of elbow and her head with laceration. CT scans were negative for intracranial bleeds and negative fractures. had abdominal distention and increasing pain and had a paracentesis catheter placed to help remove air from abdomen. Patient had intense pain and required increase in pain medication. 4/2: Overnight needed switched to Dilaudid. Patient now feels better. - Constitutional Vitals: Temp Pulse Resp BP Pulse Ox 97.5 F L 92 16 85/47 93 08/01/17 06:39 08/01/17 06:39 08/01/17 08:17 08/01/17 06:39 08/01/17 08:17 General appearance: Present: cachectic, A&O X 3, no acute distress, answers questions appropriately Exam: - Head Head exam: Present: atraumatic, normocephalic - Eye Eye exam: Present: EOMI, PERRL, conjuntiva pink, sclera anicteric - Neck Neck exam general surgery: Present: supple, trachea midline. Absent: lymphadenopathy - Respiratory Respiratory exam: Present: CTAB. Absent: accessory muscle use, rales, rhonchi, wheezes - Cardiovascular Cardiovascular exam: Present: +S1, +S2, tachycardia. Absent: diastolic murmur, systolic murmur - GI/Abdominal GI/Abdominal exam: Present: normal bowel sounds, soft, tenderness (upper abdominal tenderness), no peritoneal signs. Absent: distended, guarding, rebound, rigid Additional comments: Abdominal exam is completed after NG tube placement, and significant amount of fluid removal. ED physician reported a distended rigidity. - Extremities Exam Extremities exam: Present: warm, radial pulses palpable and symmetrical. Absent : calf tenderness, cyanotic, pedal edema - Neurological Exam Neurological exam: Present: CN II-XII intact, oriented X3, no focal deficits. Absent: facial droop, speech deficit - Skin Skin exam: Present: dry, intact Sacral region has about 4 x4 region of erythema around bony prominence of coccyx. There is no edema but does dorys. Right scalp contusion above right forhead, 2x2 cm. Right elbow contusion 2x2 cm excoriation non-bleeding Internal Medicine: Result - Labs CBC & Chem 7: 08/01/17 03:26 08/01/17 03:26 Labs: Short CBC 07/31/17 08/01/17 Range/Units 08:04 03:26 WBC 8.6 15.5 H D (4.3-11.1) K/mcL Hgb 10.9 L 11.6 (11.5-15.4) g/dL Hct 34.0 L 36.7 (35.3-44.9) % Plt Count 123 L 119 L (140-400) K/mcL Neutrophils # 6.6 13.2 H (1.6-8.9) K/mcL BMP 07/31/17 08/01/17 08:04 03:26 Sodium 143 143 Potassium 3.3 L 3.5 Chloride 104 104 Carbon Dioxide 30 H 28 BUN 16 22 Creatinine 0.56 L 1.08 Glucose 125 H 189 H Calcium 9.3 9.4 - ABG Interpretation ABG results: PT/INR, D-dimer PT 13.6 Seconds (9.4-12.1) H 07/29/17 05:27 Consult Discharge Plan - Plan Referrals: Max Lopez DO [Primary Care Provider] -
[2017-08-01] MEDS ORDERED: 0.9 % Sodium Chloride 500 ML IVC ONE (08:35)
[2017-08-01] MEDS ORDERED: Aminoglycoside Consult 1 EACH MC ONE (08:40)
[2017-08-01] MEDS: Ipratropium/Albuterol Neb 3 ML IH SCH ×3 (10:03→21:25)
--- NOTE | 2017-08-01 10:06 | Palliative Progress Note ---
<Kayleigh Whitman - Last Filed: 08/01/17 11:03> Date of Encounter: 08/01/17 Time of Encounter: 10:05 - Assessment and plan (1) Goals of care, counseling/discussion Current Visit: No Status: Acute Assessment and plan: Code Status as DNR CCA/DNI. She is still considering hospice care at this time. She is aware that if she were to go hospice route, and there would be no further chemotherapy. (2) Adenocarcinoma of pancreas Current Visit: No Status: Acute Assessment and plan: Sees Dr. Hook outpatient stage IV pancreatic adenocarcinoma has bowel obstruction secondary to obstructing mass. Prior treatment attempt was palliative. (3) Bowel obstruction Current Visit: Yes Status: Acute Qualifiers: Intestinal obstruction type: other intestinal obstruction Intestinal obstruction extent: unspecified extent Qualified Code(s): K56.699 - Other intestinal obstruction unspecified as to partial versus complete obstruction (4) Hypertension Current Visit: Yes Status: Acute Qualifiers: Hypertension type: essential hypertension Qualified Code(s): I10 - Essential (primary) hypertension (5) COPD (chronic obstructive pulmonary disease) Current Visit: Yes Status: Acute Qualifiers: COPD type: unspecified COPD Qualified Code(s): J44.9 - Chronic obstructive pulmonary disease, unspecified - Time Spent With Patient Total time spent is greater than 50% in coordination of care (as documented) at patient's floor/unit and/or counseling patient: - Subjective Interval history: 72-year-old female evaluated at bedside. She appeared very somnolent and was trying to sleep. She reports abdominal pain and denies any new problems. - Constitutional Vitals: Abnormal lab results WBC 15.5 K/mcL (4.3-11.1) H D 08/01/17 03:26 RDW 16.6 % (11.5-14.5) H 08/01/17 03:26 Plt Count 119 K/mcL (140-400) L 08/01/17 03:26 Neutrophils # 13.2 K/mcL (1.6-8.9) H 08/01/17 03:26 Monocytes # 1.4 K/mcL (0.0-1.3) H 08/01/17 03:26 Nucleated RBCs/100 WBC 0.1 /100 WBC (0) H 08/01/17 03:26 PT 13.6 Seconds (9.4-12.1) H 07/29/17 05:27 Est GFR (Non-Af Amer) 50 (> 60) L 08/01/17 03:26 Glucose 189 mg/dL (70-105) H 08/01/17 03:26 POC Glucose 182 mg/dL (58-89) H 08/01/17 07:02 Calculated Osmolality 304 (280-300) H 08/01/17 03:26 AST 42 Units/L (13-39) H 07/28/17 17:12 Alkaline Phosphatase 175 Units/L (34-104) H 07/28/17 17:12 Albumin 3.2 g/dL (3.5-5.7) L 07/28/17 17:12 Globulin 3.7 g/dL (2.4-3.5) H 07/28/17 17:12 Albumin/Globulin Ratio 0.9 (1.1-2.2) L 07/28/17 17:12 Lipase 3 Units/L (11-82) L 07/28/17 17:12 Urine Clarity Cloudy (Clear) A 07/28/17 18:01 Ur Specific [place] > 1.030 (1.010-1.025) H 07/28/17 18:01 Urine Ketones Trace mg/dL (Negative) H 07/28/17 18:01 Urine Bilirubin Large (Negative) H 07/28/17 18:01 Urine Microscopic RBC 5-15 per hpf (0-3) H 07/28/17 18:01 Ur Squamous Epith Cells Many per lpf (None-Few) H 07/28/17 18:01 General appearance: Present: no acute distress, thin - Head Additional comments: Bruising present on right for had area above eyebrow - Respiratory Respiratory exam: Present: CTAB - Cardiovascular Cardiovascular exam: Present: RRR, +S1, +S2 - GI/Abdominal GI/Abdominal exam: Present: diminished bowel sounds, distended, firm, tenderness - Extremities Exam Extremities exam: Present: pedal edema. Absent: calf tenderness, tenderness - Neurological Exam Neurological exam: Present: alert, oriented X3 Palliative Quality Palliative Quality: Screen for Code Status: Yes, Screen for Goals of Care: Yes, Screen for Pain: Yes, If Pain Regimen Started, Initiate Bowel Regimen: Yes, Screen for Nausea/Vomitting: Yes - Labs CBC & Chem 7: 04/02/18 03:26 08/01/17 03:26 Labs: Laboratory Results - last 24 hr 07/31/17 07/31/17 07/31/17 11:40 15:50 20:19 WBC RBC Hgb Hct MCV MCH MCHC RDW Plt Count MPV Immature Gran % Seg Neutrophils % Lymphocytes % Monocytes % Eosinophils % Basophils % Neutrophils # Lymphocytes # Monocytes # Eosinophils # Basophils # Nucleated RBCs/100 WBC Sodium Potassium Chloride Carbon Dioxide BUN Creatinine Est GFR ( Amer) Est GFR (Non-Af Amer) BUN/Creatinine Ratio Glucose POC Glucose 122 H 113 H 124 H Calculated Osmolality Calcium 08/01/17 08/01/17 08/01/17 03:26 03:26 07:02 WBC 15.5 H D RBC 4.02 Hgb 11.6 Hct 36.7 MCV 91.3 MCH 28.9 MCHC 31.6 RDW 16.6 H Plt Count 119 L MPV 11.4 Immature Gran % 0.6 Seg Neutrophils % 84.9 Lymphocytes % 5.2 Monocytes % 9.2 Eosinophils % 0.0 Basophils % 0.1 Neutrophils # 13.2 H Lymphocytes # 0.8 Monocytes # 1.4 H Eosinophils # 0.0 Basophils # 0.0 Nucleated RBCs/100 WBC 0.1 H Sodium 143 Potassium 3.5 Chloride 104 Carbon Dioxide 28 BUN 22 Creatinine 1.08 Est GFR ( Amer) > 60 Est GFR (Non-Af Amer) 50 L BUN/Creatinine Ratio 20 Glucose 189 H POC Glucose 182 H Calculated Osmolality 304 H Calcium 9.4 - ABG Interpretation ABG results: PT/INR, D-dimer PT 13.6 Seconds (9.4-12.1) H 07/29/17 05:27 Consult Discharge Plan - Plan Referrals: Max Lopez DO [Primary Care Provider] - <Fred Jordan - Last Filed: 08/01/17 12:49> Date of Encounter: 08/01/17 - Time Spent With Patient Total time spent is greater than 50% in coordination of care (as documented) at patient's floor/unit and/or counseling patient: - Constitutional Vitals: Abnormal lab results WBC 15.5 K/mcL (4.3-11.1) H D 08/01/17 03:26 RDW 16.6 % (11.5-14.5) H 08/01/17 03:26 Plt Count 119 K/mcL (140-400) L 08/01/17 03:26 Neutrophils # 13.2 K/mcL (1.6-8.9) H 08/01/17 03:26 Monocytes # 1.4 K/mcL (0.0-1.3) H 08/01/17 03:26 Nucleated RBCs/100 WBC 0.1 /100 WBC (0) H 08/01/17 03:26 PT 13.6 Seconds (9.4-12.1) H 07/29/17 05:27 Est GFR (Non-Af Amer) 50 (> 60) L 08/01/17 03:26 Glucose 189 mg/dL (70-105) H 08/01/17 03:26 POC Glucose 182 mg/dL (58-89) H 08/01/17 07:02 Calculated Osmolality 304 (280-300) H 08/01/17 03:26 AST 42 Units/L (13-39) H 07/28/17 17:12 Alkaline Phosphatase 175 Units/L (34-104) H 07/28/17 17:12 Albumin 3.2 g/dL (3.5-5.7) L 07/28/17 17:12 Globulin 3.7 g/dL (2.4-3.5) H 07/28/17 17:12 Albumin/Globulin Ratio 0.9 (1.1-2.2) L 07/28/17 17:12 Lipase 3 Units/L (11-82) L 07/28/17 17:12 Urine Clarity Cloudy (Clear) A 07/28/17 18:01 Ur Specific [place] > 1.030 (1.010-1.025) H 07/28/17 18:01 Urine Ketones Trace mg/dL (Negative) H 07/28/17 18:01 Urine Bilirubin Large (Negative) H 07/28/17 18:01 Urine Microscopic RBC 5-15 per hpf (0-3) H 07/28/17 18:01 Ur Squamous Epith Cells Many per lpf (None-Few) H 07/28/17 18:01 - Attending Attestation I examined this patient and my medical decision-making was reviewed with the Resident Physician. I agree with the documented findings, disposition and treatment plan as described except to the extent set forth below. - Labs CBC & Chem 7: 08/01/17 03:26 08/01/17 03:26 Labs: Laboratory Results - last 24 hr 07/31/17 07/31/17 08/01/17 15:50 20:19 03:26 WBC 15.5 H D RBC 4.02 Hgb 11.6 Hct 36.7 MCV 91.3 MCH 28.9 MCHC 31.6 RDW 16.6 H Plt Count 119 L MPV 11.4 Immature Gran % 0.6 Seg Neutrophils % 84.9 Lymphocytes % 5.2 Monocytes % 9.2 Eosinophils % 0.0 Basophils % 0.1 Neutrophils # 13.2 H Lymphocytes # 0.8 Monocytes # 1.4 H Eosinophils # 0.0 Basophils # 0.0 Nucleated RBCs/100 WBC 0.1 H Sodium Potassium Chloride Carbon Dioxide BUN Creatinine Est GFR ( Amer) Est GFR (Non-Af Amer) BUN/Creatinine Ratio Glucose POC Glucose 113 H 124 H Calculated Osmolality Calcium 08/01/17 08/01/17 03:26 07:02 WBC RBC Hgb Hct MCV MCH MCHC RDW Plt Count MPV Immature Gran % Seg Neutrophils % Lymphocytes % Monocytes % Eosinophils % Basophils % Neutrophils # Lymphocytes # Monocytes # Eosinophils # Basophils # Nucleated RBCs/100 WBC Sodium 143 Potassium 3.5 Chloride 104 Carbon Dioxide 28 BUN 22 Creatinine 1.08 Est GFR ( Amer) > 60 Est GFR (Non-Af Amer) 50 L BUN/Creatinine Ratio 20 Glucose 189 H POC Glucose 182 H Calculated Osmolality 304 H Calcium 9.4 - ABG Interpretation ABG results: PT/INR, D-dimer PT 13.6 Seconds (9.4-12.1) H 07/29/17 05:27
[2017-08-01] MEDS: Cefepime HCl 2,000 MG in Water for inj. (sterile) 20 ML 20 ML IVP SCH ×2 (10:17→21:23)
--- NOTE | 2017-08-01 11:22 | Event Note ---
Date of Encounter: 08/01/17 Time of Encounter: 11:22 Reviewed patient's paracentesis drain with family at bedside. drain care orders placed for d/c to hospice. No other acute changes. Reviewed with Dr. Espinoza. Ok for patient to d.c. form a surgical perspective. Reviewed with bedside RN. Surgery will sign off. Thank you for allowing us to participate in Ms. Rogers's care. - Patient Status Disposition: Still a Patient Condition: Serious - Discharge Instructions Follow Up With: Max Lopez DO [Primary Care Provider] - Additional Instructions: Wound care orders: Turn stop cock towards the capped pressure valves (This will allow drainage into the MARY drain), every 6 hours. Change dressing Q7 days. PEG: Keep PEG to gravity. May return to [facility] for nausea or vomiting. Change PEG dressing daily. No need for surgical follow-up.
[2017-08-01] MEDS: OXYCODONE Oral CONC 10 MG/0.5 ML ORAL.SYG SL PRN ×2 (11:27→19:02)
[2017-08-01] MEDS: Silver Sulfadiazine 50 GM TUBE TP SCH (13:51)
[2017-08-01] MEDS: *HR* HYDROmorphone 2 MG/ML SYRINGE IVP PRN ×2 (14:10→20:12)
[2017-08-01] MEDS: 0.9 % Sodium Chloride 1,000 ML IVC SCH (15:22)
[2017-08-02] MEDS: 0.9 % Sodium Chloride 1,000 ML IVC SCH ×2 (01:08→11:02)
[2017-08-02 03:46] LABS: Hemoglobin 10.4 g/dL (11.5-15.4); Immature Granulocytes % 0.7 % (0-4); Red Cell Distribution Width 16.7 % (11.5-14.5)
[2017-08-02 03:48] LABS: Basophils % 0.2 %; Hematocrit 32.6 % (35.3-44.9); Immature Platelets 8.6 % (1.1-6.1); Lymphocytes # 0.9 K/mcL (0.6-4.6); Lymphocytes % 4.8 %; Mean Corpuscular HGB Conc 31.9 g/dL (31.6-35.5); Mean Corpuscular Hemoglobin 29.3 pg (28.0-33.3); Mean Corpuscular Volume 91.8 fL (83.0-100.0); Monocytes # 1.3 K/mcL (0.0-1.3); Neutrophils # 16.1 K/mcL (1.6-8.9); Nucleated Red Blood Cells 0.1 /100 WBC (0); Red Blood Count 3.55 M/mcL (3.82-4.97); Segmented Neutrophils % 87.3 %
[2017-08-02 03:49] LABS: Platelet Count 90 K/mcL (140-400)
[2017-08-02 04:02] LABS: Calcium 8.7 mg/dL (8.6-10.3); Potassium 3.3 mEq/L (3.5-5.1)
[2017-08-02] MEDS: Ipratropium/Albuterol Neb 3 ML IH SCH ×4 (04:11→22:04)
[2017-08-02 04:55] LABS: Adenovirus Not Detected (Not Detect); Bordetella Pertussis Not Detected (Not Detect); Chlamydophila pneumoniae Not Detected (Not Detect); Coronavirus 229E Not Detected (Not Detect); Coronavirus HKU1 Not Detected (Not Detect); Coronavirus NL63 Not Detected (Not Detect); Coronavirus OC43 Not Detected (Not Detect); Human Metapneumovirus Not Detected (Not Detect); Human Rhinovirus/Enterovirus Not Detected (Not Detect); Influenza A Subtype 2009 H1 Not Detected (Not Detect); Influenza A Untypeable Not Detected (Not Detect); Influenza B Not Detected (Not Detect); Mycoplasma pneumoniae Not Detected (Not Detect); Parainfluenza Virus 1 Not Detected (Not Detect); Parainfluenza Virus 2 Not Detected (Not Detect); Parainfluenza Virus 3 Not Detected (Not Detect); Parainfluenza Virus 4 Not Detected (Not Detect); Respiratory Syncytial Virus Not Detected (Not Detect)
[2017-08-02] MEDS ORDERED: levoFLOXacin 750 MG TABLET PO ONE (07:55)
[2017-08-02] MEDS: Insulin LISPRO 300 UNITS/3 ML VIAL SQ SCH ×4 (08:33→21:48)
[2017-08-02] MEDS: Pantoprazole 40 MG VIAL IVP SCH (08:36)
[2017-08-02] MEDS: OXYCODONE Oral CONC 10 MG/0.5 ML ORAL.SYG SL PRN ×2 (08:37→17:54)
[2017-08-02] MEDS: Silver Sulfadiazine 50 GM TUBE TP SCH (08:45)
[2017-08-02] MEDS: *HR* LORazepam 2 MG/ML VIAL IVP PRN (08:54)
--- NOTE | 2017-08-02 09:01 | Palliative Progress Note ---
<Kayleigh Whitman - Last Filed: 08/02/17 08:59> Date of Encounter: 08/02/17 Time of Encounter: 08:59 - Assessment and plan (1) Goals of care, counseling/discussion Current Visit: No Status: Acute Assessment and plan: Code Status as DNR CCA/DNI. Patient is very agitated this morning and states that she is very eager to go home. Meeting today at 4 PM with hospice She is aware that if she were to go hospice route, and there would be no further chemotherapy. (2) Adenocarcinoma of pancreas Current Visit: No Status: Acute Assessment and plan: Sees Dr. Hook outpatient stage IV pancreatic adenocarcinoma has bowel obstruction secondary to obstructing mass. Prior treatment attempt was palliative. (3) Bowel obstruction Current Visit: Yes Status: Acute Qualifiers: Intestinal obstruction type: other intestinal obstruction Intestinal obstruction extent: unspecified extent Qualified Code(s): K56.699 - Other intestinal obstruction unspecified as to partial versus complete obstruction (4) Hypertension Current Visit: Yes Status: Acute Qualifiers: Hypertension type: essential hypertension Qualified Code(s): I10 - Essential (primary) hypertension (5) COPD (chronic obstructive pulmonary disease) Current Visit: Yes Status: Acute Qualifiers: COPD type: unspecified COPD Qualified Code(s): J44.9 - Chronic obstructive pulmonary disease, unspecified - Time Spent With Patient Total time spent is greater than 50% in coordination of care (as documented) at patient's floor/unit and/or counseling patient: - Subjective Interval history: 72-year-old female evaluated at bedside. Patient was very anxious and agitated this morning and is very eager to go home. - Constitutional Vitals: Abnormal lab results WBC 18.4 K/mcL (4.3-11.1) H 08/02/17 03:14 RBC 3.55 M/mcL (3.82-4.97) L 08/02/17 03:14 Hgb 10.4 g/dL (11.5-15.4) L 08/02/17 03:14 Hct 32.6 % (35.3-44.9) L 08/02/17 03:14 RDW 16.7 % (11.5-14.5) H 08/02/17 03:14 Plt Count 90 K/mcL (140-400) L 08/02/17 03:14 Neutrophils # 16.1 K/mcL (1.6-8.9) H 08/02/17 03:14 Nucleated RBCs/100 WBC 0.1 /100 WBC (0) H 08/02/17 03:14 Immature Plt Fraction 8.6 % (1.1-6.1) H 08/02/17 03:14 PT 13.6 Seconds (9.4-12.1) H 07/29/17 05:27 Potassium 3.3 mEq/L (3.5-5.1) L 08/02/17 03:14 BUN 33 mg/dL (8-23) H 08/02/17 03:14 Creatinine 1.68 mg/dL (0.60-1.20) H 08/02/17 03:14 Est GFR ( Amer) 37 (> 60) L 08/02/17 03:14 Est GFR (Non-Af Amer) 30 (> 60) L 08/02/17 03:14 Glucose 170 mg/dL (70-105) H 08/02/17 03:14 POC Glucose 134 mg/dL (58-89) H 08/02/17 07:55 Calculated Osmolality 301 (280-300) H 08/02/17 03:14 AST 42 Units/L (13-39) H 07/28/17 17:12 Alkaline Phosphatase 175 Units/L (34-104) H 07/28/17 17:12 Albumin 3.2 g/dL (3.5-5.7) L 07/28/17 17:12 Globulin 3.7 g/dL (2.4-3.5) H 07/28/17 17:12 Albumin/Globulin Ratio 0.9 (1.1-2.2) L 07/28/17 17:12 Lipase 3 Units/L (11-82) L 07/28/17 17:12 Urine Clarity Cloudy (Clear) A 07/28/17 18:01 Ur Specific [place] > 1.030 (1.010-1.025) H 07/28/17 18:01 Urine Ketones Trace mg/dL (Negative) H 07/28/17 18:01 Urine Bilirubin Large (Negative) H 07/28/17 18:01 Urine Microscopic RBC 5-15 per hpf (0-3) H 03/29/18 18:01 Ur Squamous Epith Cells Many per lpf (None-Few) H 07/28/17 18:01 General appearance: Present: disheveled, mild distress, thin - Head Additional comments: Bruising and scar present on the right side of 4 head from fall. - Respiratory Respiratory exam: Present: CTAB - Cardiovascular Cardiovascular exam: Present: RRR, +S1, +S2 - GI/Abdominal GI/Abdominal exam: Present: diminished bowel sounds, distended, tenderness Additional comments: Severe tenderness to palpation. With guarding present. PEG Tube and MARY drain in place. - Extremities Exam Extremities exam: Absent: pedal edema Additional comments: Bruising present in various areas bilateral upper extremities. - Neurological Exam Neurological exam: Present: alert Additional comments: Agitated Palliative Quality Palliative Quality: Screen for Code Status: Yes, Screen for Goals of Care: Yes, Screen for Pain: Yes, If Pain Regimen Started, Initiate Bowel Regimen: Yes, Screen for Nausea/Vomitting: Yes - Labs CBC & Chem 7: 08/02/17 03:14 08/02/17 03:14 Labs: Laboratory Results - last 24 hr 08/01/17 08/01/17 08/01/17 11:03 16:12 20:22 WBC RBC Hgb Hct MCV MCH MCHC RDW Plt Count MPV Immature Gran % Seg Neutrophils % Lymphocytes % Monocytes % Eosinophils % Basophils % Neutrophils # Lymphocytes # Monocytes # Eosinophils # Basophils # Nucleated RBCs/100 WBC Immature Plt Fraction Sodium Potassium Chloride Carbon Dioxide BUN Creatinine Est GFR ( Amer) Est GFR (Non-Af Amer) BUN/Creatinine Ratio Glucose POC Glucose 162 H 132 H 127 H Calculated Osmolality Calcium Chlamy pneumoniae PCR Adenovirus (PCR) B. pertussis DNA (PCR) B.parapertussis DNA PCR Coronavirus OC43 (PCR) Coronavirus HKU1 (PCR) Coronavirus 229E (PCR) Coronavirus NL63 (PCR) Human Metapneumovir PCR Influenza A (H1) PCR Influ A (H1N1/09) PCR Influenza A (H3) PCR Influenza A Untype (PCR) Influenza Type B (PCR) M.pneumoniae DNA (PCR) Parainfluenza 1 (PCR) Parainfluenza 2 (PCR) Parainfluenza 3 (PCR) Parainfluenza 4 (PCR) RSV (PCR) Entero/Rhino (PCR) 08/02/17 08/02/17 08/02/17 03:14 03:14 03:15 WBC 18.4 H RBC 3.55 L Hgb 10.4 L Hct 32.6 L MCV 91.8 MCH 29.3 MCHC 31.9 RDW 16.7 H Plt Count 90 L MPV 12.0 Immature Gran % 0.7 Seg Neutrophils % 87.3 Lymphocytes % 4.8 Monocytes % 7.0 Eosinophils % 0.0 Basophils % 0.2 Neutrophils # 16.1 H Lymphocytes # 0.9 Monocytes # 1.3 Eosinophils # 0.0 Basophils # 0.0 Nucleated RBCs/100 WBC 0.1 H Immature Plt Fraction 8.6 H Sodium 140 Potassium 3.3 L Chloride 104 Carbon Dioxide 28 BUN 33 H Creatinine 1.68 H Est GFR ( Amer) 37 L Est GFR (Non-Af Amer) 30 L BUN/Creatinine Ratio 20 Glucose 170 H POC Glucose Calculated Osmolality 301 H Calcium 8.7 Chlamy pneumoniae PCR Not Detected Adenovirus (PCR) Not Detected B. pertussis DNA (PCR) Not Detected B.parapertussis DNA PCR Not Detected Coronavirus OC43 (PCR) Not Detected Coronavirus HKU1 (PCR) Not Detected Coronavirus 229E (PCR) Not Detected Coronavirus NL63 (PCR) Not Detected Human Metapneumovir PCR Not Detected Influenza A (H1) PCR Not Detected Influ A (H1N1/09) PCR Not Detected Influenza A (H3) PCR Not Detected Influenza A Untype (PCR) Not Detected Influenza Type B (PCR) Not Detected M.pneumoniae DNA (PCR) Not Detected Parainfluenza 1 (PCR) Not Detected Parainfluenza 2 (PCR) Not Detected Parainfluenza 3 (PCR) Not Detected Parainfluenza 4 (PCR) Not Detected RSV (PCR) Not Detected Entero/Rhino (PCR) Not Detected 08/02/17 07:55 WBC RBC Hgb Hct MCV MCH MCHC RDW Plt Count MPV Immature Gran % Seg Neutrophils % Lymphocytes % Monocytes % Eosinophils % Basophils % Neutrophils # Lymphocytes # Monocytes # Eosinophils # Basophils # Nucleated RBCs/100 WBC Immature Plt Fraction Sodium Potassium Chloride Carbon Dioxide BUN Creatinine Est GFR ( Amer) Est GFR (Non-Af Amer) BUN/Creatinine Ratio Glucose POC Glucose 134 H Calculated Osmolality Calcium Chlamy pneumoniae PCR Adenovirus (PCR) B. pertussis DNA (PCR) B.parapertussis DNA PCR Coronavirus OC43 (PCR) Coronavirus HKU1 (PCR) Coronavirus 229E (PCR) Coronavirus NL63 (PCR) Human Metapneumovir PCR Influenza A (H1) PCR Influ A (H1N1/09) PCR Influenza A (H3) PCR Influenza A Untype (PCR) Influenza Type B (PCR) M.pneumoniae DNA (PCR) Parainfluenza 1 (PCR) Parainfluenza 2 (PCR) Parainfluenza 3 (PCR) Parainfluenza 4 (PCR) RSV (PCR) Entero/Rhino (PCR) - ABG Interpretation ABG results: PT/INR, D-dimer PT 13.6 Seconds (9.4-12.1) H 07/29/17 05:27 Consult Discharge Plan - Plan Additional Instructions: Wound care orders: Turn stop cock towards the capped pressure valves (This will allow drainage into the MARY drain), every 6 hours. Change dressing Q7 days. PEG: Keep PEG to gravity. May return to [facility] for nausea or vomiting. Change PEG dressing daily. No need for surgical follow-up. Referrals: Max Lopez DO [Primary Care Provider] - <Fred Jordan - Last Filed: 08/02/17 14:46> Date of Encounter: 08/02/17 - Time Spent With Patient Total time spent is greater than 50% in coordination of care (as documented) at patient's floor/unit and/or counseling patient: - Constitutional Vitals: Abnormal lab results WBC 18.4 K/mcL (4.3-11.1) H 08/02/17 03:14 RBC 3.55 M/mcL (3.82-4.97) L 08/02/17 03:14 Hgb 10.4 g/dL (11.5-15.4) L 08/02/17 03:14 Hct 32.6 % (35.3-44.9) L 08/02/17 03:14 RDW 16.7 % (11.5-14.5) H 08/02/17 03:14 Plt Count 90 K/mcL (140-400) L 08/02/17 03:14 Neutrophils # 16.1 K/mcL (1.6-8.9) H 08/02/17 03:14 Nucleated RBCs/100 WBC 0.1 /100 WBC (0) H 08/02/17 03:14 Immature Plt Fraction 8.6 % (1.1-6.1) H 08/02/17 03:14 PT 13.6 Seconds (9.4-12.1) H 07/29/17 05:27 Potassium 3.3 mEq/L (3.5-5.1) L 08/02/17 03:14 BUN 33 mg/dL (8-23) H 08/02/17 03:14 Creatinine 1.68 mg/dL (0.60-1.20) H 08/02/17 03:14 Est GFR ( Amer) 37 (> 60) L 08/02/17 03:14 Est GFR (Non-Af Amer) 30 (> 60) L 08/02/17 03:14 Glucose 170 mg/dL (70-105) H 08/02/17 03:14 POC Glucose 141 mg/dL (58-89) H 08/02/17 11:50 Calculated Osmolality 301 (280-300) H 08/02/17 03:14 AST 42 Units/L (13-39) H 07/28/17 17:12 Alkaline Phosphatase 175 Units/L (34-104) H 07/28/17 17:12 Albumin 3.2 g/dL (3.5-5.7) L 07/28/17 17:12 Globulin 3.7 g/dL (2.4-3.5) H 07/28/17 17:12 Albumin/Globulin Ratio 0.9 (1.1-2.2) L 07/28/17 17:12 Lipase 3 Units/L (11-82) L 07/28/17 17:12 Procalcitonin 0.54 ng/mL (<=0.10) H 08/01/17 03:26 Urine Clarity Cloudy (Clear) A 07/28/17 18:01 Ur Specific [place] > 1.030 (1.010-1.025) H 07/28/17 18:01 Urine Ketones Trace mg/dL (Negative) H 07/28/17 18:01 Urine Bilirubin Large (Negative) H 07/28/17 18:01 Urine Microscopic RBC 5-15 per hpf (0-3) H 07/28/17 18:01 Ur Squamous Epith Cells Many per lpf (None-Few) H 07/28/17 18:01 - Attending Attestation I examined this patient and my medical decision-making was reviewed with the Resident Physician. I agree with the documented findings, disposition and treatment plan as described except to the extent set forth below. - Labs CBC & Chem 7: 08/02/17 03:14 08/02/17 03:14 Labs: Laboratory Results - last 24 hr 08/01/17 08/01/17 08/01/17 03:26 11:03 16:12 WBC RBC Hgb Hct MCV MCH MCHC RDW Plt Count MPV Immature Gran % Seg Neutrophils % Lymphocytes % Monocytes % Eosinophils % Basophils % Neutrophils # Lymphocytes # Monocytes # Eosinophils # Basophils # Nucleated RBCs/100 WBC Immature Plt Fraction Sodium Potassium Chloride Carbon Dioxide BUN Creatinine Est GFR ( Amer) Est GFR (Non-Af Amer) BUN/Creatinine Ratio Glucose POC Glucose 162 H 132 H Calculated Osmolality Calcium Procalcitonin 0.54 H Chlamy pneumoniae PCR Adenovirus (PCR) B. pertussis DNA (PCR) B.parapertussis DNA PCR Coronavirus OC43 (PCR) Coronavirus HKU1 (PCR) Coronavirus 229E (PCR) Coronavirus NL63 (PCR) Human Metapneumovir PCR Influenza A (H1) PCR Influ A (H1N1/09) PCR Influenza A (H3) PCR Influenza A Untype (PCR) Influenza Type B (PCR) M.pneumoniae DNA (PCR) Parainfluenza 1 (PCR) Parainfluenza 2 (PCR) Parainfluenza 3 (PCR) Parainfluenza 4 (PCR) RSV (PCR) Entero/Rhino (PCR) 08/01/17 08/02/17 08/02/17 20:22 03:14 03:14 WBC 18.4 H RBC 3.55 L Hgb 10.4 L Hct 32.6 L MCV 91.8 MCH 29.3 MCHC 31.9 RDW 16.7 H Plt Count 90 L MPV 12.0 Immature Gran % 0.7 Seg Neutrophils % 87.3 Lymphocytes % 4.8 Monocytes % 7.0 Eosinophils % 0.0 Basophils % 0.2 Neutrophils # 16.1 H Lymphocytes # 0.9 Monocytes # 1.3 Eosinophils # 0.0 Basophils # 0.0 Nucleated RBCs/100 WBC 0.1 H Immature Plt Fraction 8.6 H Sodium 140 Potassium 3.3 L Chloride 104 Carbon Dioxide 28 BUN 33 H Creatinine 1.68 H Est GFR ( Amer) 37 L Est GFR (Non-Af Amer) 30 L BUN/Creatinine Ratio 20 Glucose 170 H POC Glucose 127 H Calculated Osmolality 301 H Calcium 8.7 Procalcitonin Chlamy pneumoniae PCR Adenovirus (PCR) B. pertussis DNA (PCR) B.parapertussis DNA PCR Coronavirus OC43 (PCR) Coronavirus HKU1 (PCR) Coronavirus 229E (PCR) Coronavirus NL63 (PCR) Human Metapneumovir PCR Influenza A (H1) PCR Influ A (H1N1/09) PCR Influenza A (H3) PCR Influenza A Untype (PCR) Influenza Type B (PCR) M.pneumoniae DNA (PCR) Parainfluenza 1 (PCR) Parainfluenza 2 (PCR) Parainfluenza 3 (PCR) Parainfluenza 4 (PCR) RSV (PCR) Entero/Rhino (PCR) 08/02/17 08/02/17 08/02/17 03:15 07:55 11:50 WBC RBC Hgb Hct MCV MCH MCHC RDW Plt Count MPV Immature Gran % Seg Neutrophils % Lymphocytes % Monocytes % Eosinophils % Basophils % Neutrophils # Lymphocytes # Monocytes # Eosinophils # Basophils # Nucleated RBCs/100 WBC Immature Plt Fraction Sodium Potassium Chloride Carbon Dioxide BUN Creatinine Est GFR ( Amer) Est GFR (Non-Af Amer) BUN/Creatinine Ratio Glucose POC Glucose 134 H 141 H Calculated Osmolality Calcium Procalcitonin Chlamy pneumoniae PCR Not Detected Adenovirus (PCR) Not Detected B. pertussis DNA (PCR) Not Detected B.parapertussis DNA PCR Not Detected Coronavirus OC43 (PCR) Not Detected Coronavirus HKU1 (PCR) Not Detected Coronavirus 229E (PCR) Not Detected Coronavirus NL63 (PCR) Not Detected Human Metapneumovir PCR Not Detected Influenza A (H1) PCR Not Detected Influ A (H1N1/09) PCR Not Detected Influenza A (H3) PCR Not Detected Influenza A Untype (PCR) Not Detected Influenza Type B (PCR) Not Detected M.pneumoniae DNA (PCR) Not Detected Parainfluenza 1 (PCR) Not Detected Parainfluenza 2 (PCR) Not Detected Parainfluenza 3 (PCR) Not Detected Parainfluenza 4 (PCR) Not Detected RSV (PCR) Not Detected Entero/Rhino (PCR) Not Detected - ABG Interpretation ABG results: PT/INR, D-dimer PT 13.6 Seconds (9.4-12.1) H 07/29/17 05:27
[2017-08-02] MEDS ORDERED: *HR* FentaNYL PATCH 12 MCG PATCH TD SCH (09:30)
[2017-08-02] MEDS: Cefepime HCl 2,000 MG in Water for inj. (sterile) 20 ML 20 ML IVP SCH ×2 (09:36→21:47)
[2017-08-02] MEDS: *HR* HYDROmorphone 2 MG/ML SYRINGE IVP PRN ×3 (09:37→21:40)
--- NOTE | 2017-08-02 10:18 | Internal Med Progress Note ---
Date of Encounter: 08/02/17 Time of Encounter: 10:16 - Assessment and plan (1) Bowel obstruction Current Visit: Yes Status: Acute Assessment and plan: CT on admission showed massive distention of the stomach due to gastric obstruction likely at the level of the 2nd segment of the duodenum. Cystic lesion adjacent to the gastric antrum appears to communicate with the neck of the gallbladder in may represent tumor or pseudocyst. Hepatic metastatic disease. Interval enlargement of right lower lobe nodule and juxta cardiac lymph node, compatible with metastases. - 07/30 PEG tube placed today for decompression - 07/31 patient having some distension she was drinking excessive carbonated beverages when she advanced her diet. - 08/01 paracentesis cath placed to aid with distention. Patient is feeling relief also from Dilaudid with Oxy sublingual -08/02 patient is tachycardic bradypneic and minimally reponsive as well as terminal looking this morning. Continue current management. Disposition for now is for hospice Qualifiers: Intestinal obstruction type: other intestinal obstruction Intestinal obstruction extent: unspecified extent Qualified Code(s): K56.699 - Other intestinal obstruction unspecified as to partial versus complete obstruction (2) Stage IV adenocarcinoma of pancreas Current Visit: Yes Status: Chronic Assessment and plan: There is confirmed metastasis by biopsy to the lungs. Last oncology note on mentions that chemotherapy has been stopped secondary to disease stability and toxicity. She reports that they were going to take a couple months off and then reevaluate. Patient is no longer undergoing chemotherapy she has opted for hospice. (3) Diabetes mellitus Current Visit: Yes Status: Chronic Assessment and plan: Fingersticks have been controlled as patient is not tolerating anything by mouth. Continue to hold insulin. 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 Qualifiers: Hypertension type: essential hypertension Qualified Code(s): I10 - Essential (primary) hypertension (5) COPD (chronic obstructive pulmonary disease) Current Visit: Yes Status: Chronic Assessment and plan: Hx of COPD, not in acute exacerbation. Patient's chest is clear to auscultation however, she has bradyarrhythmia possibly due to pain medications and she is hypoxic, currently has pneumonia and is being treated with antibiotics. Continue her inhaler inhalers and respiratory support, no indication for steroids right now. Qualifiers: COPD type: unspecified COPD Qualified Code(s): J44.9 - Chronic obstructive pulmonary disease, unspecified (6) DVT prophylaxis Current Visit: Yes Status: Acute Assessment and plan: scds (7) Altered nutrition in oncology patient Current Visit: Yes Status: Acute Assessment and plan: Patient has not been eating or drinking well over the past 2 weeks due to bowel obstruction. She appears very cachectic. 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 (9) Goals of care, counseling/discussion Current Visit: Yes Status: Acute Assessment and plan: Patient is terminal, palliative is following Goal is for hospice.. (10) Sacral wound Current Visit: Yes Status: Suspected Assessment and plan: Due to heat pad use per patient's Present on admission Wound care was consulted, wound eval noted Qualifiers: Encounter type: initial encounter Qualified Code(s): S31.000A - Unspecified open wound of lower back and pelvis without penetration into retroperitoneum, initial encounter (11) Lung consolidation Current Visit: Yes Status: Acute Assessment and plan: continue antibiotics (12) FERDINAND (acute kidney injury) Current Visit: Yes Status: Acute Assessment and plan: Cr this a.m 1.68, baseline 0.5 patient is on IVF Continue same (13) Acute respiratory failure with hypoxia Current Visit: Yes Status: Acute Assessment and plan: Possibly secondary to pneumonia Continue O2 by non-rebreather Goal O2 sat is 88-92% due to COPD - Time Spent With Patient Total time spent is greater than 50% in coordination of care (as documented) at patient's floor/unit and/or counseling patient: - Subjective Interval history: 72 year old female with PMH of pancreatic cancer with metastasis to lungs " palliative chemotherapy which had been discontinued due to patient's debility, and toxicity,, COPD, diabetes, hypertension She is admitted and being managed for small bowel obstruction secondary to pancreatic mass, hospital stay complicated by placement of PEG tube. 4. Abdominal distention, as well as the pneumoperitoneum which is being managed with MARY drainage The patient has been in a lot of pain since admission, and is currently terminally ill. Palliative care is following. This morning, the patient right elbow skin injury. No intracranial hemorrhage. This morning, the patient seen and evaluated at the bedside, she is tachycardic with heart rates in the 120s, Hypoxic wit O2 sat 80-82% on face mask, EKG obtained a sinus rhythm. She also has bradypnea with RR 8 to 10. She is minimally responsive and terminally ill-looking and malnourished. She is unable to participate in my evaluation as she is minimally responsive- possibly de to medications, she is being planned for discharge to home hospice today - Constitutional Vitals: Temp Pulse Resp BP Pulse Ox 98.3 F 99 14 94/53 90 08/02/17 06:40 08/02/17 06:40 08/02/17 06:40 08/02/17 06:40 08/02/17 06:40 General appearance: Present: cachectic, A&O X 3, no acute distress, answers questions appropriately Internal Medicine: Result - Labs CBC & Chem 7: 08/02/17 03:14 08/02/17 03:14 Labs: Short CBC 08/02/17 Range/Units 03:14 WBC 18.4 H (4.3-11.1) K/mcL Hgb 10.4 L (11.5-15.4) g/dL Hct 32.6 L (35.3-44.9) % Plt Count 90 L (140-400) K/mcL Neutrophils # 16.1 H (1.6-8.9) K/mcL BMP 08/02/17 03:14 Sodium 140 Potassium 3.3 L Chloride 104 Carbon Dioxide 28 BUN 33 H Creatinine 1.68 H Glucose 170 H Calcium 8.7 - ABG Interpretation ABG results: PT/INR, D-dimer PT 13.6 Seconds (9.4-12.1) H 07/29/17 05:27 - VTE Documentation of Mechanical Device: Intermittent pneumatic compression device Consult Discharge Plan - Plan Additional Instructions: Wound care orders: Turn stop cock towards the capped pressure valves (This will allow drainage into the MARY drain), every 6 hours. Change dressing Q7 days. PEG: Keep PEG to gravity. May return to [facility] for nausea or vomiting. Change PEG dressing daily. No need for surgical follow-up. Referrals: Max Lopez, [Primary Care Provider] -
[2017-08-02] MEDS: Budesonide/Formoterol 80/4.5 MDI IH SCH ×2 (10:59→22:05)
[2017-08-02] MEDS ORDERED: *HR* FentaNYL PATCH 25 MCG PATCH TD SCH (13:00)
--- NOTE | 2017-08-02 13:39 | Oncology Inp Progress Note ---
<Joseph Hook S - Last Filed: 08/02/17 20:39> Date of Encounter: 08/02/17 - Constitutional Vitals: Vital Signs Temp Pulse Resp BP Pulse Ox 08/02/17 19:46 98.4 F 101 14 83/52 92 08/02/17 16:39 10 92 08/02/17 11:45 98.5 F 105 10 97/64 92 08/02/17 11:29 92 08/02/17 10:59 14 94 08/02/17 09:30 88 08/02/17 06:40 98.3 F 99 14 94/53 90 08/02/17 04:35 98.1 F 99 14 101/54 88 08/02/17 04:11 12 95 08/02/17 01:11 96 8 94 08/01/17 21:25 16 95 Intake and Output 08/02/17 08/02/17 08/03/17 08:59 16:59 00:59 Intake Total 639 / 639 1000 / 1000 Output Total 310 / 310 385 / 385 50 / 50 Balance 329 / 329 615 / 615 -50 / -50 Intake: IV Fluids 639 / 639 1000 / 1000 0.9 % Sodium Chloride 1,000 ML 639 / 639 1000 / 1000 @ 100 mls/hr IVC .Q10H [facility] Rx#: [id number] Oral 0 / 0 0 / 0 Output: Urine 0 / 0 Catheter 20 / 20 10 / 10 50 / 50 Urethral (Hazel) 0 / 0 10 / 10 Wound Drainage 290 / 290 375 / 375 Medial Abdomen 290 / 290 375 / 375 Other: Meal Lunch Percent of Meal Consumed 0% Blood Glucose* 134 141 159 Oncology: Obj Data - Labs CBC & Chem 7: 08/02/17 03:14 08/02/17 03:14 Labs: Laboratory Results - last 24 hr 08/01/17 08/01/17 08/01/17 03:26 11:03 20:22 WBC RBC Hgb Hct MCV MCH MCHC RDW Plt Count MPV Immature Gran % Seg Neutrophils % Lymphocytes % Monocytes % Eosinophils % Basophils % Neutrophils # Lymphocytes # Monocytes # Eosinophils # Basophils # Nucleated RBCs/100 WBC Immature Plt Fraction Sodium Potassium Chloride Carbon Dioxide BUN Creatinine Est GFR ( Amer) Est GFR (Non-Af Amer) BUN/Creatinine Ratio Glucose POC Glucose 162 H 127 H Calculated Osmolality Calcium Procalcitonin 0.54 H Chlamy pneumoniae PCR Adenovirus (PCR) B. pertussis DNA (PCR) B.parapertussis DNA PCR Coronavirus OC43 (PCR) Coronavirus HKU1 (PCR) Coronavirus 229E (PCR) Coronavirus NL63 (PCR) Human Metapneumovir PCR Influenza A (H1) PCR Influ A (H1N1/) PCR Influenza A (H3) PCR Influenza A Untype (PCR) Influenza Type B (PCR) M.pneumoniae DNA (PCR) Parainfluenza 1 (PCR) Parainfluenza 2 (PCR) Parainfluenza 3 (PCR) Parainfluenza 4 (PCR) RSV (PCR) Entero/Rhino (PCR) 08/02/17 08/02/17 08/02/17 03:14 03:14 03:15 WBC 18.4 H RBC 3.55 L Hgb 10.4 L Hct 32.6 L MCV 91.8 MCH 29.3 MCHC 31.9 RDW 16.7 H Plt Count 90 L MPV 12.0 Immature Gran % 0.7 Seg Neutrophils % 87.3 Lymphocytes % 4.8 Monocytes % 7.0 Eosinophils % 0.0 Basophils % 0.2 Neutrophils # 16.1 H Lymphocytes # 0.9 Monocytes # 1.3 Eosinophils # 0.0 Basophils # 0.0 Nucleated RBCs/100 WBC 0.1 H Immature Plt Fraction 8.6 H Sodium 140 Potassium 3.3 L Chloride 104 Carbon Dioxide 28 BUN 33 H Creatinine 1.68 H Est GFR ( Amer) 37 L Est GFR (Non-Af Amer) 30 L BUN/Creatinine Ratio 20 Glucose 170 H POC Glucose Calculated Osmolality 301 H Calcium 8.7 Procalcitonin Chlamy pneumoniae PCR Not Detected Adenovirus (PCR) Not Detected B. pertussis DNA (PCR) Not Detected B.parapertussis DNA PCR Not Detected Coronavirus OC43 (PCR) Not Detected Coronavirus HKU1 (PCR) Not Detected Coronavirus 229E (PCR) Not Detected Coronavirus NL63 (PCR) Not Detected Human Metapneumovir PCR Not Detected Influenza A (H1) PCR Not Detected Influ A (H1N1/09) PCR Not Detected Influenza A (H3) PCR Not Detected Influenza A Untype (PCR) Not Detected Influenza Type B (PCR) Not Detected M.pneumoniae DNA (PCR) Not Detected Parainfluenza 1 (PCR) Not Detected Parainfluenza 2 (PCR) Not Detected Parainfluenza 3 (PCR) Not Detected Parainfluenza 4 (PCR) Not Detected RSV (PCR) Not Detected Entero/Rhino (PCR) Not Detected 08/02/17 08/02/17 07:55 11:50 WBC RBC Hgb Hct MCV MCH MCHC RDW Plt Count MPV Immature Gran % Seg Neutrophils % Lymphocytes % Monocytes % Eosinophils % Basophils % Neutrophils # Lymphocytes # Monocytes # Eosinophils # Basophils # Nucleated RBCs/100 WBC Immature Plt Fraction Sodium Potassium Chloride Carbon Dioxide BUN Creatinine Est GFR ( Amer) Est GFR (Non-Af Amer) BUN/Creatinine Ratio Glucose POC Glucose 134 H 141 H Calculated Osmolality Calcium Procalcitonin Chlamy pneumoniae PCR Adenovirus (PCR) B. pertussis DNA (PCR) B.parapertussis DNA PCR Coronavirus OC43 (PCR) Coronavirus HKU1 (PCR) Coronavirus 229E (PCR) Coronavirus NL63 (PCR) Human Metapneumovir PCR Influenza A (H1) PCR Influ A (H1N1/09) PCR Influenza A (H3) PCR Influenza A Untype (PCR) Influenza Type B (PCR) M.pneumoniae DNA (PCR) Parainfluenza 1 (PCR) Parainfluenza 2 (PCR) Parainfluenza 3 (PCR) Parainfluenza 4 (PCR) RSV (PCR) Entero/Rhino (PCR) - Impressions Impressions Abdomen/Pelvis CT 07/30/17 16:14 IMPRESSION: 1. Large amount of free intraperitoneal air which may be related to recent gastrostomy tube placement; however, this is more than is typically seen. Although there is no convincing source, there is a pocket of extraluminal gas in the abdominal right upper quadrant, near the colonic hepatic flexure. As such, this may represent source of the free intraperitoneal air. 2. Circumferential thickening of the colon suggestive of colitis. 3. Marked distention of the stomach with focal thickening of the posterior gastric wall at the level of the antrum of unclear etiology, possibly a hematoma. 4. Moderate amount of free fluid in the pelvis. 5. Sigmoid diverticulosis. No evidence of diverticulitis. 6. Left hepatic lobe pneumobilia with mild left intrahepatic ductal dilatation. Of note, the biliary stent has slightly migrated distally. 7. Persistent peripheral wall 2.3 cm nodule in the right lower lobe, previously biopsied. Please refer to pathology report. 8. Left lower lobe consolidation with small left pleural effusion. D/ / 07/30/2017 17:44:31 Collin Bacrenas MD / vinod Interpreting Provider: Collin Barcenas MD - ABG Interpretation ABG results: PT/INR, D-dimer PT 13.6 Seconds (9.4-12.1) H 07/29/17 05:27 Consult Discharge Plan - Plan Additional Instructions: Wound care orders: Turn stop cock towards the capped pressure valves (This will allow drainage into the MARY drain), every 6 hours. Change dressing Q7 days. PEG: Keep PEG to gravity. May return to [facility] for nausea or vomiting. Change PEG dressing daily. No need for surgical follow-up. Referrals: Max Lopez DO [Primary Care Provider] - - Attending Attestation I examined this patient and my medical decision-making was reviewed with the Advanced Practice Nurse. I agree with the documented findings, disposition and treatment plan as described except to the extent set forth below. Ms. Rogers has had rapid progression of her cancer and is actively dying. We discussed expectations moving forward and answered questions regarding past treatments as well. Offered my assistance moving forward and agree with hospice measures. <Tracy Swanson - Last Filed: 08/03/17 08:31> Date of Encounter: 08/02/17 Time of Encounter: 13:39 (1) Stage IV adenocarcinoma of pancreas Current Visit: Yes Status: Chronic Assessment and plan: Stage IV ([id number]) pancreatic adenocarcinoma. Overnight, patient has rapidly declined and is now minimally responsive. Respirations are shallow and irregular. Family gathered at bedside. They understand that patient may likely pass soon and that hospice would now be recommendation from medical team so as to provide the patient comfort care during this transition. They are planned to meet with [facility] soon per the families request. General inpatient hospice may benefit Ms. Rogers given her rapid decline, but this decision is left to families wishes. They understand that this option is available should they wish to request it. Appreciate continued discussion per primary and palliative team. I made myself available to family/primary team should they have any further questions or concerns. Dr. Hook, treating oncologist, will also round with patient and family to help to answer any further questions. Oncology: Subj Interval history: Ms. Rogers is resting in bed, her family is at bedside (, daughter, granddaughter). She has declined overnight and is now minimally responsive. She appears to be resting comfortably. Her son is coming to meet with other family members and have requested to meet with [facility] at bedside today to discuss transition of care. - Constitutional Vitals: Vital Signs Temp Pulse Resp BP Pulse Ox 08/02/17 11:45 98.5 F 105 10 97/64 92 08/02/17 11:29 92 08/02/17 10:59 14 94 08/02/17 09:30 88 08/02/17 06:40 98.3 F 99 14 94/53 90 08/02/17 04:35 98.1 F 99 14 101/54 88 08/02/17 04:11 12 95 08/02/17 01:11 96 8 94 08/01/17 21:25 16 95 08/01/17 19:31 97.3 F L 101 14 96/61 91 08/01/17 16:26 18 92 08/01/17 14:59 98.0 F 91 22 95/60 97 08/01/17 14:05 102 107/62 91 Intake and Output 08/01/17 08/02/17 08/02/17 23:59 07:59 15:59 Intake Total 361 / 361 639 / 639 1000 / 1000 Output Total 110 / 110 310 / 310 335 / 335 Balance 251 / 251 329 / 329 665 / 665 Intake: IV Fluids 361 / 361 639 / 639 1000 / 1000 0.9 % Sodium Chloride 1,000 ML 341 / 341 639 / 639 1000 / 1000 @ 100 mls/hr IVC .Q10H [facility] Rx#: [id number] Maxipime 2,000 MG In Water for 20 / 20 inj. (sterile) 20 ML @ 300 mls/ hr IVP Q12H [facility] Rx#:[id number] Oral 0 / 0 0 / 0 0 / 0 Output: Urine 0 / 0 0 / 0 Catheter 50 / 50 20 / 20 10 / 10 Urethral (Hazel) 50 / 50 0 / 0 10 / 10 Wound Drainage 60 / 60 290 / 290 325 / 325 Medial Abdomen 60 / 60 290 / 290 325 / 325 Other: Meal Lunch Percent of Meal Consumed 0% Blood Glucose* 127 134 141 General appearance: thin, no febrile Exam: Chronically ill appearing, minimally responsive - Head Additional comments: abrasion to forehead - ENT ENT exam: Present: mucous membranes dry - Respiratory Respiratory exam: Present: CTAB Additional comments: Shallow respiration, RR 10 - Cardiovascular Cardiovascular exam: Present: RRR, +S1, +S2, tachycardia - GI/Abdominal GI/Abdominal exam: Present: distended, hypoactive bowel sounds Additional comments: PEG tube - Additional comments: Hazel cath with dark yellow urine - Extremities Exam Extremities exam: Present: normal inspection. Absent: calf tenderness - Neurological Exam Neurological exam: Present: altered - Skin Skin exam: Present: dry, pallor, warm Oncology: Obj Data - Labs CBC & Chem 7: 08/02/17 03:14 08/02/17 03:14 - ABG Interpretation ABG results: PT/INR, D-dimer PT 13.6 Seconds (9.4-12.1) H 07/29/17 05:27
--- NOTE | 2017-08-02 19:46 | Electrocardiograph Report ---
[place] [id number] Test Date: 2017-08-02 Pat Name: Myriam Rogers Department: 115 Room: 2A45 Gender: F Lead Care Manager: ISABELLA : 1945 Requested By: Donovan Eid Order Number: [id number] Reading MD: Braulio Yu Measurements Intervals [place] Rate: 109 P: 68 WA: 130 QRS: 55 QRSD: 87 T: 161 QT: 309 QTc: 373 Interpretive Statements SINUS TACHYCARDIA WITH OCCASIONAL VENTRICULAR PREMATURE COMPLEXES Electronically Signed On 08-02-2017 19:45:23 EDT by Braulio Yu
[2017-08-03] MEDS: *HR* HYDROmorphone 2 MG/ML SYRINGE IVP PRN (02:41)
[2017-08-03] MEDS: Ipratropium/Albuterol Neb 3 ML IH SCH ×2 (04:02→10:55)
[2017-08-03] MEDS: 0.9 % Sodium Chloride 1,000 ML IVC SCH ×2 (07:32→07:35)
[2017-08-03 07:41] VITALS: BP 80/48
--- NOTE | 2017-08-03 08:54 | Palliative Progress Note ---
<Kayleigh Whitman - Last Filed: 08/03/17 08:52> Date of Encounter: 08/03/17 Time of Encounter: 08:52 - Assessment and plan (1) Goals of care, counseling/discussion Current Visit: Yes Status: Acute Assessment and plan: Code Status as DNR CCA/DNI. Paperwork in progress to transition patient to general inpatient hospice with [place]. Depending on her clinical course, she will go home with [facility] if she clinically improves. However, overall prognosis is extremely poor. (2) Adenocarcinoma of pancreas Current Visit: No Status: Acute Assessment and plan: Sees Dr. Hook outpatient stage IV pancreatic adenocarcinoma has bowel obstruction secondary to obstructing mass. Prior treatment attempt was palliative. (3) Bowel obstruction Current Visit: Yes Status: Acute Qualifiers: Intestinal obstruction type: other intestinal obstruction Intestinal obstruction extent: unspecified extent Qualified Code(s): K56.699 - Other intestinal obstruction unspecified as to partial versus complete obstruction (4) Hypertension Current Visit: Yes Status: Chronic Qualifiers: Hypertension type: essential hypertension Qualified Code(s): I10 - Essential (primary) hypertension (5) COPD (chronic obstructive pulmonary disease) Current Visit: Yes Status: Chronic Qualifiers: COPD type: unspecified COPD Qualified Code(s): J44.9 - Chronic obstructive pulmonary disease, unspecified - Time Spent With Patient Total time spent is greater than 50% in coordination of care (as documented) at patient's floor/unit and/or counseling patient: - Subjective Interval history: 72-year-old female evaluated at bedside. Patient was laying in bed and resting comfortably. - Constitutional Vitals: Abnormal lab results WBC 18.4 K/mcL (4.3-11.1) H 08/02/17 03:14 RBC 3.55 M/mcL (3.82-4.97) L 08/02/17 03:14 Hgb 10.4 g/dL (11.5-15.4) L 08/02/17 03:14 Hct 32.6 % (35.3-44.9) L 08/02/17 03:14 RDW 16.7 % (11.5-14.5) H 08/02/17 03:14 Plt Count 90 K/mcL (140-400) L 08/02/17 03:14 Neutrophils # 16.1 K/mcL (1.6-8.9) H 08/02/17 03:14 Nucleated RBCs/100 WBC 0.1 /100 WBC (0) H 08/02/17 03:14 Immature Plt Fraction 8.6 % (1.1-6.1) H 08/02/17 03:14 PT 13.6 Seconds (9.4-12.1) H 07/29/17 05:27 Potassium 3.3 mEq/L (3.5-5.1) L 08/02/17 03:14 BUN 33 mg/dL (8-23) H 08/02/17 03:14 Creatinine 1.68 mg/dL (0.60-1.20) H 08/02/17 03:14 Est GFR ( Amer) 37 (> 60) L 08/02/17 03:14 Est GFR (Non-Af Amer) 30 (> 60) L 08/02/17 03:14 Glucose 170 mg/dL (70-105) H 08/02/17 03:14 POC Glucose 159 mg/dL (58-89) H 08/02/17 19:54 Calculated Osmolality 301 (280-300) H 08/02/17 03:14 AST 42 Units/L (13-39) H 07/28/17 17:12 Alkaline Phosphatase 175 Units/L (34-104) H 07/28/17 17:12 Albumin 3.2 g/dL (3.5-5.7) L 07/28/17 17:12 Globulin 3.7 g/dL (2.4-3.5) H 07/28/17 17:12 Albumin/Globulin Ratio 0.9 (1.1-2.2) L 07/28/17 17:12 Lipase 3 Units/L (11-82) L 07/28/17 17:12 Procalcitonin 0.54 ng/mL (<=0.10) H 08/01/17 03:26 Urine Clarity Cloudy (Clear) A 07/28/17 18:01 Ur Specific [place] > 1.030 (1.010-1.025) H 07/28/17 18:01 Urine Ketones Trace mg/dL (Negative) H 07/28/17 18:01 Urine Bilirubin Large (Negative) H 07/28/17 18:01 Urine Microscopic RBC 5-15 per hpf (0-3) H 07/28/17 18:01 Ur Squamous Epith Cells Many per lpf (None-Few) H 07/28/17 18:01 Exam: No acute distress, laying in bed sleeping - Head Additional comments: Bruising present on right side of forehead - Respiratory Additional comments: Rales and rhonchi present in the left upper lobe - Cardiovascular Cardiovascular exam: Present: RRR, +S1, +S2 - GI/Abdominal GI/Abdominal exam: Present: distended, normal bowel sounds, soft. Absent: tenderness Additional comments: Peg tube and MARY drain in place - Extremities Exam Extremities exam: Absent: pedal edema Palliative Quality Palliative Quality: Screen for Code Status: Yes, Screen for Goals of Care: Yes, Screen for Pain: Yes, If Pain Regimen Started, Initiate Bowel Regimen: Yes, Screen for Nausea/Vomitting: Yes Code Status: 08/02/17 15:28 DNR [Resuscitation Status: Active] [RES] Routine Comment: Resuscitation Status: DNR-Comfort Care - Labs CBC & Chem 7: 08/02/17 03:14 08/02/17 03:14 Labs: Laboratory Results - last 24 hr 08/01/17 08/02/17 08/02/17 03:26 11:50 19:54 POC Glucose 141 H 159 H Procalcitonin 0.54 H - Impressions Impressions Abdomen/Pelvis CT 07/30/17 16:14 IMPRESSION: 1. Large amount of free intraperitoneal air which may be related to recent gastrostomy tube placement; however, this is more than is typically seen. Although there is no convincing source, there is a pocket of extraluminal gas in the abdominal right upper quadrant, near the colonic hepatic flexure. As such, this may represent source of the free intraperitoneal air. 2. Circumferential thickening of the colon suggestive of colitis. 3. Marked distention of the stomach with focal thickening of the posterior gastric wall at the level of the antrum of unclear etiology, possibly a hematoma. 4. Moderate amount of free fluid in the pelvis. 5. Sigmoid diverticulosis. No evidence of diverticulitis. 6. Left hepatic lobe pneumobilia with mild left intrahepatic ductal dilatation. Of note, the biliary stent has slightly migrated distally. 7. Persistent peripheral wall 2.3 cm nodule in the right lower lobe, previously biopsied. Please refer to pathology report. 8. Left lower lobe consolidation with small left pleural effusion. D/ / 07/30/2017 17:44:31 Collin Barcenas MD / vinod Interpreting Provider: Collin Barcenas MD - ABG Interpretation ABG results: PT/INR, D-dimer PT 13.6 Seconds (9.4-12.1) H 07/29/17 05:27 Consult Discharge Plan - Plan Additional Instructions: Wound care orders: Turn stop cock towards the capped pressure valves (This will allow drainage into the MARY drain), every 6 hours. Change dressing Q7 days. PEG: Keep PEG to gravity. May return to [facility] for nausea or vomiting. Change PEG dressing daily. No need for surgical follow-up. Referrals: Max Lopez DO [Primary Care Provider] - <Fred Jordan - Last Filed: 08/03/17 09:39> Date of Encounter: 08/03/17 - Assessment and plan (1) Goals of care, counseling/discussion Current Visit: Yes Status: Acute Assessment and plan: I have contacted [facility] to evaluate the patient for general hospice admission. Issues old discharge orders have been written by the hospitalist, if [facility] agrees the patient will be converted to general inpatient hospice under my care. Waiting word from [facility]. - Time Spent With Patient Total time spent is greater than 50% in coordination of care (as documented) at patient's floor/unit and/or counseling patient: - Constitutional Vitals: Abnormal lab results WBC 18.4 K/mcL (4.3-11.1) H 08/02/17 03:14 RBC 3.55 M/mcL (3.82-4.97) L 08/02/17 03:14 Hgb 10.4 g/dL (11.5-15.4) L 08/02/17 03:14 Hct 32.6 % (35.3-44.9) L 08/02/17 03:14 RDW 16.7 % (11.5-14.5) H 08/02/17 03:14 Plt Count 90 K/mcL (140-400) L 08/02/17 03:14 Neutrophils # 16.1 K/mcL (1.6-8.9) H 08/02/17 03:14 Nucleated RBCs/100 WBC 0.1 /100 WBC (0) H 08/02/17 03:14 Immature Plt Fraction 8.6 % (1.1-6.1) H 08/02/17 03:14 PT 13.6 Seconds (9.4-12.1) H 07/29/17 05:27 Potassium 3.3 mEq/L (3.5-5.1) L 08/02/17 03:14 BUN 33 mg/dL (8-23) H 08/02/17 03:14 Creatinine 1.68 mg/dL (0.60-1.20) H 08/02/17 03:14 Est GFR ( Amer) 37 (> 60) L 08/02/17 03:14 Est GFR (Non-Af Amer) 30 (> 60) L 08/02/17 03:14 Glucose 170 mg/dL (70-105) H 08/02/17 03:14 POC Glucose 159 mg/dL (58-89) H 08/02/17 19:54 Calculated Osmolality 301 (280-300) H 08/02/17 03:14 AST 42 Units/L (13-39) H 07/28/17 17:12 Alkaline Phosphatase 175 Units/L (34-104) H 07/28/17 17:12 Albumin 3.2 g/dL (3.5-5.7) L 07/28/17 17:12 Globulin 3.7 g/dL (2.4-3.5) H 07/28/17 17:12 Albumin/Globulin Ratio 0.9 (1.1-2.2) L 07/28/17 17:12 Lipase 3 Units/L (11-82) L 07/28/17 17:12 Procalcitonin 0.54 ng/mL (<=0.10) H 08/01/17 03:26 Urine Clarity Cloudy (Clear) A 07/28/17 18:01 Ur Specific [place] > 1.030 (1.010-1.025) H 07/28/17 18:01 Urine Ketones Trace mg/dL (Negative) H 07/28/17 18:01 Urine Bilirubin Large (Negative) H 07/28/17 18:01 Urine Microscopic RBC 5-15 per hpf (0-3) H 07/28/17 18:01 Ur Squamous Epith Cells Many per lpf (None-Few) H 07/28/17 18:01 - Attending Attestation I examined this patient and my medical decision-making was reviewed with the Resident Physician. I agree with the documented findings, disposition and treatment plan as described except to the extent set forth below. Palliative Quality Code Status: 08/02/17 15:28 DNR [Resuscitation Status: Active] [RES] Routine Comment: Resuscitation Status: DNR-Comfort Care - Labs CBC & Chem 7: 08/02/17 03:14 08/02/17 03:14 Labs: Laboratory Results - last 24 hr 08/01/17 08/02/17 08/02/17 03:26 11:50 19:54 POC Glucose 141 H 159 H Procalcitonin 0.54 H - Impressions Impressions Abdomen/Pelvis CT 07/30/17 16:14
--- NOTE | 2017-08-03 09:43 | Event Note ---
Date of Encounter: 08/03/17 Time of Encounter: 09:40 Hospice medical laboratory technician certification of terminal illness: Hospice benefit. Start: 08/03/2017 Hospice benefit. In: +90 days Palliative performance scale:20% History: The patient has metastatic pancreatic cancer that has caused a complete obstruction of her bowel. Patient does have a venting gastrostomy tube but there is no way for the patient taken any nutrition, no further treatment available for the patient. 4 These reasons I believe that These findings support a life expectancy of 6 months or less. I attest that I have compose the above narrative based on my review of the patient's medical records, and or on my examination of the patient. Fred Jordan M.D. Associate medical geneticist. [facility]
[2017-08-03] MEDS: Budesonide/Formoterol 80/4.5 MDI IH SCH (10:55)
[2017-08-03] MEDS: Insulin LISPRO 300 UNITS/3 ML VIAL SQ SCH (10:57)
[2017-08-03 15:21] LABS: Mycoplasma pneumoniae IgG 0.12 U/L (<=0.09)
[2017-08-04] MEDS ORDERED: levoFLOXacin 750 MG TABLET PO SCH (09:00)
--- NOTE | 2017-08-08 15:07 | Discharge Summary ---
Date of Encounter: 08/08/17 Time of Encounter: 15:00 - Discharge Diagnosis (1) Bowel obstruction Priority: Primary Status: Acute Qualifiers: Intestinal obstruction type: other intestinal obstruction Intestinal obstruction extent: unspecified extent Qualified Code(s): K56.699 - Other intestinal obstruction unspecified as to partial versus complete obstruction (2) Stage IV adenocarcinoma of pancreas Priority: Primary Status: Chronic (3) Diabetes mellitus Priority: Primary Status: Chronic Qualifiers: Diabetes mellitus type: type 2 Diabetes mellitus computer terminal operator insulin use: with [facility] use Diabetes mellitus complication status: with unspecified complications Qualified Code(s): E11.8 - Type 2 diabetes mellitus with unspecified complications; Z79.4 - [facility] (current) use of insulin; Z79.4 - [facility] (current) use of insulin; Z79.4 - computer terminal operator (current) use of insulin; Z79.4 - [facility] (current) use of insulin (4) Hypertension Priority: Primary Status: Chronic Qualifiers: Hypertension type: essential hypertension Qualified Code(s): I10 - Essential (primary) hypertension (5) COPD (chronic obstructive pulmonary disease) Priority: Primary Status: Chronic Qualifiers: COPD type: unspecified COPD Qualified Code(s): J44.9 - Chronic obstructive pulmonary disease, unspecified (6) DVT prophylaxis Priority: Primary Status: Acute (7) Altered nutrition in oncology patient Priority: Primary Status: Acute (8) Gastric outlet obstruction Priority: Primary Status: Acute (9) Goals of care, counseling/discussion Priority: Primary Status: Acute (10) Sacral wound Priority: Primary Status: Suspected Qualifiers: Encounter type: initial encounter Qualified Code(s): S31.000A - Unspecified open wound of lower back and pelvis without penetration into retroperitoneum, initial encounter (11) Lung consolidation Priority: Primary Status: Acute (12) FERDINAND (acute kidney injury) Priority: Primary Status: Acute (13) Acute respiratory failure with hypoxia Priority: Primary Status: Acute Hospital course: Ms. Rogers is a 72 year old female This patient was transferred to inpatient hospice service at the close of day 08/02/17 1600 after discussion with family members All of the hospital course and exam findings on 08/02/17 is as documented in the progress note of 08/02/17 See progress note of same day for details. Discharge discussed with: patient, family, nurse, social work, case management, quality compliance consultant - Time Spent with Patient Total time spent providing and/or coordinating discharge services: Greater than 30 minutes - Discharge Medications Home Medications: Budesonide/Formoterol 80/4.5 [Symbicort 80/4.5] 2 puff IH BID 10/18/16 [History ] Ipratropium/Albuterol Neb [Duoneb] 3 ml IH Q6HR PRN 10/18/16 [History] Potassium Chloride [K-Tab ER] 20 meq PO DAILY 10/18/16 [History] Lidocaine/Prilocaine [Emla] 1 appl TP AD #30 gm 10/19/16 [Rx] Albuterol Sulfate [Ventolin Hfa] 2 puff IH Q6H PRN #1 01/06/17 [Rx] LORazepam [Ativan] 1 mg PO Q4HR PRN #30 tablet 04/14/17 [Rx] Omeprazole 20 mg PO DAILY #30 tablet. 06/02/17 [Rx] Ondansetron [Zofran] 8 mg PO Q8HR PRN #30 tablet 06/02/17 [Rx] HYDROcodone/Acet 5/325 mg [[place] 5-325 mg] 1 - 2 tab PO Q6H PRN 30 Days #90 tab 06/20/17 [Rx] Mirtazapine [Remeron] 15 mg PO HS #30 tablet 07/20/17 [Rx] Metoclopramide [Reglan] 5 mg PO QIDAC #600 mls 07/25/17 [Rx] Insulin Glargine,Hum.rec.anlog [Basaglar Floydikpen U-100] 35 unit SQ QAM 07/28/17 [History] Allergies/Adverse Reactions: 3 Allergy/AdvReac Type Severity Reaction Status Date / Time No Known Allergies Allergy Verified 06/20/17 11:43 Date of admission: 07/28/17 20:30 Primary care physician: Max Lopez Consults: 07/28/17 21:04 Consult to Oncology [CONS] Routine Consulting Provider: [facility] Reason for Consult: Stage IV pancreatic cancer. Admitted with small bowel obstruction. Surgical will be seeing the patient, but she will likely be medical only treatment. She does state that she has an oncology appointment in July, but would benefit from a consult while her in the hospital. Call Completed: No Consult to Palliative Care [CONS] Routine Comment: Consulting Provider: Palliative [facility]ela Reason for Consult: Stage IV pancreatic cancer. Admitted with small bowel obstruction. Surgical will be seeing the patient, but she will likely be medical only treatment. Please evaluate the patient and explain them what options palliative care could offer. Call Completed: No 07/29/17 03:29 Consult to Nutrition [CONS] Routine Comment: Consulting Provider: NUTRITION Reason for Dietary Consult: Other Other:: Pancreatic CA, bowel obstruction, eval and plan for nutrition in future 07/30/17 18:13 Consult to Wound Care [CONS] Routine Reason for Consult: sacral wound Call Completed: No Discharging clinician: Donovan Eid Anticipated date of discharge: 08/02/17 - Constitutional Vitals: Temp Pulse Resp BP Pulse Ox 98.3 F 101 9 80/48 86 08/03/17 07:33 08/03/17 07:33 08/03/17 07:33 08/03/17 07:33 08/03/17 07:33 General appearance: Present: cachectic, A&O X 3, no acute distress, answers questions appropriately - Patient Status Disposition: 50 Condition: Serious - Discharge Instructions Follow Up With: Max Lopez DO [Primary Care Provider] - Additional Instructions: Wound care orders: Turn stop cock towards the capped pressure valves (This will allow drainage into the MARY drain), every 6 hours. Change dressing Q7 days. PEG: Keep PEG to gravity. May return to [facility] for nausea or vomiting. Change PEG dressing daily. No need for surgical follow-up. - VTE Documentation of Mechanical Device: Intermittent pneumatic compression device
== END 2017-08-03 11:32 | disposition hospice, home (50) | DRG 388 ==
LOC: EMEROO 16:35 → SUATTDRO 20:30 → 3ANU 20:30 → 2ANU 08-02 18:05
PROVIDERS: ADMIT Hospitalist; ATTEND Internal Medicine

== ENCOUNTER 2017-08-03 09:07 | Inpatient (IN) ==
[2017-08-03] MEDS ORDERED: Ipratropium/Albuterol Neb 3 ML IH PRN (10:51)
[2017-08-03] MEDS ORDERED: Haloperidol Oral Conc 10 MG/5 ML UDC PO PRN (10:51)
[2017-08-03] MEDS ORDERED: Albuterol 2.5 MG/3 ML NEBULIZER IH PRN (10:51)
[2017-08-03] MEDS ORDERED: Acetaminophen 650 MG RECTAL SUPP RC PRN (10:51)
[2017-08-03] MEDS ORDERED: Atropine Sulfate 1% 40 DROP/2 ML BOTTLE SL PRN (10:51)
[2017-08-03] MEDS ORDERED: *HR* LORazepam Oral Conc 2 MG/ML PO PRN (10:51)
[2017-08-03] MEDS ORDERED: Scopolamine Patch 1.5 MG PATCH.TD72 TD SCH (11:00)
[2017-08-03] MEDS ORDERED: *HR* FentaNYL PATCH 25 MCG PATCH TD SCH (11:00)
--- NOTE | 2017-08-03 14:22 | Pallative History & Physical ---
Date of Encounter: 08/03/17 Time of Encounter: 14:18 Assessment and Plan (1) Adenocarcinoma of pancreas Current visit: No Status: Acute Hospice diagnosis no further treatment is anticipated. (2) COPD (chronic obstructive pulmonary disease) Current visit: No Status: Chronic Patient has COPD continue bronchodilators continue oxygen therapy Qualifiers: COPD type: unspecified COPD Qualified Code(s): J44.9 - Chronic obstructive pulmonary disease, unspecified (3) Goals of care, counseling/discussion Current visit: No Status: Acute Patient is now DNR comfort care. Patient is actively dying from her cancer, however purpose for GIP is due to her instability, and the inability of the family to provide care for her at home with hospice assistance for her to be adequately cared for at her detention. She will be reevaluated on a day and day out basis for this. Internal Medicine - H&P: HPI Admitted From: Intrahospital Transfer Plans for Post Hospital Care: Hospice - Home History of present illness: Ms. Rogers is a 72 year old female Patient with metastatic pancreatic cancer with bowel obstruction secondary to this. Surgical options exist, patient did have a venting gastrostomy placed. Patient has deteriorated and family history Tuesday they wished he should not go into general inpatient hospice care at [facility]. The purpose for general inpatient hospice care as the patient is too unstable to be transported home and will require more care than can be provided either at home or in a detention given her preeminent status. At this time the patient is not responsive and has no complaints of but does not appear uncomfortable. Past Med Surg Social Fam HX - Past Medical History Medical history: cancer, COPD, diabetes, hypertension, kidney stones Psychiatric history: no psych history - Past Surgical History Surgical History: cholecystectomy - Social History Smoking Status: Former smoker Smokeless Tobacco Status: No Alcohol use: none Drug use: none - Family History Mother Living Status: Hx Family Cardiac Disorders: Yes Internal Medicine - H&P: Meds Budesonide/Formoterol 80/4.5 [Symbicort 80/4.5] 2 puff IH BID 10/18/16 [History ] Ipratropium/Albuterol Neb [Duoneb] 3 ml IH Q6HR PRN 10/18/16 [History] Potassium Chloride [K-Tab ER] 20 meq PO DAILY 10/18/16 [History] Lidocaine/Prilocaine [Emla] 1 appl TP AD #30 gm 10/19/16 [Rx] Albuterol Sulfate [Ventolin Hfa] 2 puff IH Q6H PRN #1 01/06/17 [Rx] LORazepam [Ativan] 1 mg PO Q4HR PRN #30 tablet 04/14/17 [Rx] Omeprazole 20 mg PO DAILY #30 tablet. 06/02/17 [Rx] Ondansetron [Zofran] 8 mg PO Q8HR PRN #30 tablet 06/02/17 [Rx] HYDROcodone/Acet 5/325 mg [[place] 5-325 mg] 1 - 2 tab PO Q6H PRN 30 Days #90 tab 06/20/17 [Rx] Mirtazapine [Remeron] 15 mg PO HS #30 tablet 07/20/17 [Rx] Metoclopramide [Reglan] 5 mg PO QIDAC #600 mls 07/25/17 [Rx] Insulin Glargine,Hum.rec.anlog [Basaglar Kwikpen U-100] 35 unit SQ QAM 07/28/17 [History] 3 Allergy/AdvReac Type Severity Reaction Status Date / Time No Known Allergies Allergy Verified 06/20/17 11:43 ROS unobtainable: due to mental status Palliative Care-Exam - Constitutional General appearance: Present: no acute distress - Head Head Exam: Present: atraumatic, normal inspection - Eye Eye exam: Present: normal appearance - Respiratory Respiratory exam: Present: decreased breath sounds - Cardiovascular Cardiovascular exam: Present: RRR - GI/Abdominal Exam GI/Abdominal exam: Present: hyperactive bowel sounds, soft. Absent: tenderness - Catheter Type: Urethral (Hazel) - Extremities Exam Extremities exam: Present: pedal edema (very slight). Absent: tenderness - Neurological Exam Neurological exam: Present: altered - Psychiatric Psychiatric exam: Absent: agitated, anxious - Skin Skin exam: Present: dry, warm Palliative Quality Palliative Quality: Screen for Code Status: Yes, Screen for Goals of Care: Yes, Screen for Pain: Yes, If Pain Regimen Started, Initiate Bowel Regimen: Yes, Screen for Nausea/Vomitting: Yes Code Status: 08/03/17 10:51 Resuscitation Status: Active [RES] Stat Comment: Resuscitation Status: DNR-Comfort Care
[2017-08-03] MEDS: OXYCODONE Oral CONC 10 MG/0.5 ML ORAL.SYG SL PRN (19:05)
[2017-08-03] MEDS: *HR* LORazepam 2 MG/ML VIAL IVP PRN (20:27)
[2017-08-04] MEDS: *HR* LORazepam 2 MG/ML VIAL IVP PRN ×2 (00:59→05:47)
[2017-08-04] MEDS: OXYCODONE Oral CONC 10 MG/0.5 ML ORAL.SYG SL PRN (05:47)
[2017-08-04] MEDS ORDERED: OXYCODONE Oral CONC 10 MG/0.5 ML ORAL.SYG SL PRN (06:37)
[2017-08-04] MEDS ORDERED: *HR* LORazepam 2 MG/ML VIAL IVP PRN (06:37)
[2017-08-04 06:56] VITALS: BP 77/47
--- NOTE | 2017-08-04 07:48 | Palliative Progress Note ---
Date of Encounter: 08/04/17 Time of Encounter: 07:05 - Assessment and plan (1) Adenocarcinoma of pancreas Current Visit: No Status: Acute Assessment and plan: Hospice diagnosis no further treatment is anticipated. Patient is going active in terms of passing (2) COPD (chronic obstructive pulmonary disease) Current Visit: No Status: Chronic Assessment and plan: Patient has COPD continue bronchodilators continue oxygen therapy Pulse oxes dropping, I believe the patient is actively dying Qualifiers: COPD type: unspecified COPD Qualified Code(s): J44.9 - Chronic obstructive pulmonary disease, unspecified (3) Goals of care, counseling/discussion Current Visit: No Status: Acute Assessment and plan: Patient is now DNR comfort care. Patient is actively dying from her cancer, however purpose for GIP is due to her instability, and the inability of the family to provide care for her at home with hospice assistance for her to be adequately cared for at her [facility]. She will be reevaluated on a day and day out basis for this. Agent is clearly requiring more care today than yesterday, we will definitely need to be in the hospital as the patient is actively passing and moment by moment changes may be necessary for medications to keep her comfortable. The patient will therefore stay on GIP. - Time Spent With Patient Total time spent is greater than 50% in coordination of care (as documented) at patient's floor/unit and/or counseling patient: - Subjective Interval history: pt is having more difficulity this am requiring med changes bp llow an d mottling noted - Constitutional General appearance: Present: no acute distress - Respiratory Respiratory exam: Present: decreased breath sounds, tachypnea (Gasping respirations) - Cardiovascular Cardiovascular exam: Present: tachycardia - GI/Abdominal GI/Abdominal exam: Present: hypoactive bowel sounds, soft. Absent: tenderness - Extremities Exam Extremities exam: Absent: normal inspection (Modeling present) - Neurological Exam Neurological exam: Present: altered - Psychiatric Psychiatric exam: Absent: agitated, anxious - Skin Skin exam: Present: dry, mottled, warm Palliative Quality Palliative Quality: Screen for Code Status: Yes, Screen for Goals of Care: Yes, Screen for Pain: Yes, If Pain Regimen Started, Initiate Bowel Regimen: Yes, Screen for Nausea/Vomitting: Yes Code Status: 08/03/17 10:51 Resuscitation Status: Active [RES] Stat Comment: Resuscitation Status: DNR-Comfort Care Consult Discharge Plan - Plan Referrals: Max Lopez DO [Primary Care Provider] -
--- NOTE | 2017-08-04 10:55 | Death Note ---
Discharge Sum: Summary - Date and Time Date of admission: 08/03/17 11:39 Date of : 08/04/17 Time of : 09:51 - Summary Details: The patient had been brought into general inpatient hospice for end-of-life care , as well as intensive symptom management for a related to stage IV pancreatic cancer which was the cause of . Patient passed quietly and comfortably with family at bedside. Cause of pancreatic cancer for months, Patient was a former smoker Comorbidities of COPD diabetes and hypertension. - Additional Data Confirmation of as documented by pronouncing clinician: no pulse, no respirations, no heart sounds Family: at bedside Attending/PCP notified?: Yes Attending physician: Fred Jordan MD Was code activated?: No Autopsy requested?: No tax examiner notified?: No Organ bank notified?: Yes Advance directives: Yes Hospice patient?: Yes Discharge Sum: Diag - PCOD Probable Cause of : Respiratory arrest Discharge Sum: Prov - Provider Primary care physician: Max Lopez Consults: 08/03/17 10:51 Consult to Palliative Care [CONS] Routine Comment: Consulting Provider: [facility] Reason for Consult: coverage Call Completed: Yes
== END 2017-08-04 09:51 | DRG 436 ==
LOC: 2ANU 11:39
PROVIDERS: ADMIT Family Medicine Hospice and Palliative Medicine; ATTEND Family Medicine Hospice and Palliative Medicine